=== PATIENT | female | born 1970 | race Caucasian/White ===

== ENCOUNTER 2024-01-06 17:38 | Inpatient (IN) ==
--- OUTSIDE RECORDS SUMMARY | 2024-01-06 17:42 | External Medical Summary | Summary of Care ---
Author Name Unknown Organization [facility] Address [address] [place] [facility] [place] [place] [address] Phone [phone] Care Team Providers Care Fundraiser Name Role Phone Juan Hernandez MD Primary Care Provider + Reason for Visit * Reason Comments Medication Refill Encounter Details Date Type Department Care Team (Late st Contact Info) Description 12/18/2023 Refill Pulmonary Medicine, [facility] [address] [place] [address] Anel Terry, [address] [place] [address] Hypersomnia, periodic Allergies Active Allergy Reactions Criticality Noted Date Comments Topiramate Cough 04/28/2017 documented as of this encounter (statuses as of 12/19/2023) Medications Medication Sig Dispensed Refills Start Date End Date Status Fluticasone Propionate 50 MCG/ACT Nasal Suspension Administer 2 Sprays into each nostril 2 times a day. 18 mL 11 12/08/2020 Active Fluocinonide 0.05 % External Cream Apply topically to affected area 2 times a day to dry skin behind ears 30 g 11/02/2022 Active Levocetirizine Dihydrochloride 5 MG Oral TabletIndications:Ch ronic cough,Upper airway cough syndrome TAKE ONE TABLET BY MOUTH BEFORE BEDTIME 90 Tablet 1 12/10/2022 Active Armodafinil 250 MG Oral TabletIndications:Id iopathic hypersomnia Take 1 Tablet by mouth in the morning. Do not start before July 19, 2023. 90 Tablet 2 07/19/2023 Active Atorvastatin Calcium 80 MG Oral Tablet (Lipitor)Indications :Family history of premature CAD,Dyslipidemia, goal LDL below 70 TAKE ONE TABLET BY MOUTH EVERY day 90 Tablet 3 07/18/2023 Active Semaglutide(0.25 or 0.5MG/DOS) 2 MG/3ML Solution Pen-injector (Ozempic) Inject 0.5 mg under the skin once a week. 9 mL 1 07/18/2023 Active Amphetamine-Dextroam phetamine 15 MG Oral TabletIndications:Hy persomnia, periodic TAKE ONE TABLET BY MOUTH TWICE A DAY, EVERY MORNING AND AT NOON 180 Tablet 09/19/2023 5 Active traZODone HCl 100 MG Oral Tablet (Desyrel)Indications :Idiopathic hypersomnia TAKE ONE TABLET BY MOUTH BEFORE BEDTIME 90 Tablet 3 10/31/2023 5 Active Premarin 0.625 MG/GM Vaginal Cream (Estrogens Conjugated) Administer 0.5 g into the vagina at bedtime. As directed. 60 g 1 11/06/2023 Active Pantoprazole Sodium 40 MG Oral Tablet Delayed Release (Protonix)Indication s:Gastroesophageal reflux disease without esophagitis TAKE ONE TABLET BY MOUTH EVERY DAY THIRTY MINUTES BEFORE THE FIRST MEAL OF THE DAY. DO NOT CRUSH, SPLIT, OR CHEW 90 Tablet 1 12/02/2023 5 Active Amphetamine-Dextroam phet ER 30 MG Oral Capsule Extended Release 24 Hour (Adderall XR)Indications:Hyper somnia, periodic TAKE ONE CAPSULE BY MOUTH EVERY DAY IN THE MORNING 90 Capsule 12/19/2023 5 Active Amphetamine-Dextroam phet ER 30 MG Oral Capsule Extended Release 24 Hour (Adderall XR)Indications:Hyper somnia, periodic TAKE ONE CAPSULE BY MOUTH EVERY DAY IN THE MORNING 90 Capsule 09/19/2023 4 Discontinu ed(Refill) documented as of this encounter (statuses as of 12/19/2023) Active Problems Problem Noted Date Diagnosed Date S/P cervical spinal fusion 03/04/2022 Overview: 03/21 Cervical spinal stenosis 03/03/2022 Cervical radiculopathy 03/03/2022 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 Increased risk for Familial Hypercholesterolemia.Proband RQ [id number]. Proband report date 10/09/2020 (MM/DD/YYYY). Please click the link below into your browser for a brief summary of current clinical management recommendations for Familial Hypercholesterolemia. LDLR Chronic rhinitis 08/19/2020 Gastroesophageal reflux dise ase with esophagitis without hemorrhage 08/19/2020 Chronic cough 08/19/2020 Well adult exam 05/20/2020 Overview: 2021 colon WNL shirlene 5y 01/17 EGD WNL Bejarano + acid reflux. Excessive daytime sleepiness 05/09/2017 Obesity, Class I, BMI 30.0-34.9 (see actual BMI) 10/12/2016 Insomnia 08/26/2016 Overview: Better with doxepin Dyslipidemia, goal LDL below 130 04/08/2011 Attention deficit disorder without hyperactivity 04/15/2009 MEDICATION USE AGREEMENT Overview: For ADD meds - OK to burr picker refills and be seen for med check every 6 mos w/ PCP. Had UDS done 03/26/12 c/w prescribed adderall - compliant w/ med use agreement. Lumbar disc disease documented as of this encounter (statuses as of 12/19/2023) Resolved Problems Problem Noted Date Diagnosed Date Resolved Date Acne 12/03/2012 04/12/2018 Back pain 09/04/2017 Hip pain 09/04/2017 documented as of this encounter (statuses as of 12/19/2023) Immunizations Name Administration Dates Next Due COVID-19 mRNA, LNP-s, No Pre serve, 2-Dose Series (Tangled) 05/03/2020,04/05/2020 DTaP Dipth/Tet/Acell Pertussis (Infanrix), Peds 06/13/1974,06/10/1971,1970,1970 MMR - Measles/Mumps/Rubella Vaccine 07/19/1982,0 06/10/1971 OPV - Polio Virus Vaccine (Oral) 08/13/1974,05/28,1970 PPD 04/15/1985,08/13/1974,1970 Seasonal Influenza Vac., MDV , IM, 0.5 mL (Fluzone) 11/28/2019,12/07/2016,12/02/2015,2014 Seasonal Influenza Virus Vac cine, Unspecified Formulation 12/05/2018 Seasonal Influenza, PF, 6 M & above, IM , (FluLaval or Fluzone) 01/17/2023,12/15/2021,11/23/2020 Seasonal Influenza, Quadriva lent, No Preserve, IM 12/05/2018,12/06/2017,12/07/2016 TDAP (age 10 and older)(Boostrix) 05/21/2021 documented as of this encounter Social History Tobacco Use Types Packs/Day Years Used Date Smoking Tobacco: Never Smokeless Tobacco: Never Alcohol Use Standard Drinks/Week Comments Yes 0 (1 standard drink = 0.6 oz pur e alcohol) 0-2. no binge PHQ-2 Answer Date Recorded PHQ-2 Score 0 09/17/2019 Hunger Vital Sign Answer Date Recorded Worried About Running Out of Food in the Last Ye ar Never true 09/17/2019 Ran Out of Food in the Last Year Never true 09/17/2019 Utilities Answer Date Recorded Do you have trouble paying y our heating, water, or electric bill? (Adult - for ages 18 years and over) Not on file 08/15/2023 Is your family able to pay t he heat, water, or electric bill? (Household - for ages 0-17 years) Not on file 08/15/2023 Does your family have access to good internet? (Household - for ages 0-17 years) Not on file 08/15/2023 Social Connections Answer Date Recorded How often do you feel lonely or isolated from those around you? (Adult - for ages 18 years and over) Not on file 08/15/2023 Sex and Gender Information Value Date Recorded Sex Assigned at Female 09/17/2019 1:40 PM EDT Gender Identity Female 09/17/2019 1:40 PM EDT Sexual Orientation Choose not to disclose 2019 1:40 PM EDT Job Start Date Occupation Industry Not on file Not on file Not on file documented as of this encounter Functional Status Functional Status Response Date of Assess ment Are you deaf or do you have serious difficulty h earing? No 03/03/2022 Are you blind or do you have serious difficulty seeing, even when wearing glasses? No 03/03/2022 Do you have serious difficul ty walking or climbing stairs? (5 years old or older) No 03/03/2022 Do you have difficulty dress ing or bathing? (5 years old or older) No 03/03/2022 Because of a physical, menta l, or emotional condition, do you have difficulty doing errands alone such as visiting a doctor s office or shopping? (15 years old or older) No 03/03/19 Cognitive Status Response Date of Assessm ent Because of a physical, menta l, or emotional condition, do you have serious difficulty concentrating, remembering, or making decisions? (5 years old or older) No 03/03/2022 documented as of this encounter Miscellaneous Notes * Telephone Encounter - Anel Terry DO - 12/19/2023 1:29 PM EDTSigned Prescriptions: Disp Refills Amphetamine-Dextroamphet ER 30 MG Oral Cap*90 Cap*0 Sig: TAKE ONE CAPSULE BY MOUTH EVERY DAY IN THE MORNING Authorizing Provider: ANEL TERRY * Telephone Encounter - Yuliya Cooper LPN - 12/19/2023 10:19 AM EDTPending Prescriptions: Disp Refills Amphetamine-Dextroamphet ER 30 MG Oral Cap*90 Cap*0 Sig: TAKE ONE CAPSULE BY MOUTH EVERY DAY IN THE MORNING documented in this encounter Plan of Treatment Upcoming Encounters Date Type Department Care Team (Late st Contact Info) Description 2024 10:00 AM EST Office Visit Interventional Pain Center, [facility] [address] [place] [address] Cecilia Laguna PA-C [address] [place] [address] 05/29/2024 8:20 AM EDT Office Visit Family Practice [facility] [address] [place] [address] Juan Hernandez MD [address] [place] [address] 07/26/2024 2:20 PM EDT Office Visit Sleep Disorders Ctr [facility] [address] [place] [phone] Anel Terry DO [address] [place] [address] 07/31/2024 7:45 AM EDT Imaging Radiology [facility] [address] [facility] [address] [place] [address] Scheduled Procedures Name Priority Associated Diagnoses Date/Ti me COLONOSCOPY FLEXIBLE PROXIMA L DIAGNOSTIC Recall Family history of colonic polyps Health Maintenance Due Date Last Done Comments HIV Screening 1985 Hepatitis C Screening 02/13/1988 Hepatitis B Vaccine (1 of 3 - 19+ 3-dose series) 1989 Cologuard 2015 Fecal Occult Blood Test 2015 Sigmoidoscopy 2015 Zoster Vaccines (1 of 2) 02/13/2020 Depression Screening 09/16/2020 09/17/2019 Mammogram 09/20/2023 09/19/2022, 08/28, 02/07/2020, Additional history exists COVID-19 Vaccine ( season) 2023 05/03/2020, 04/05/2020 Influenza Vaccine (FLU shot) (#1) 2023 01/17/2023, 12/15/2021, 11/23/2020, Additional history exists Diabetes Screening 02/11/2025 02/11/2022, 0 05/19/2020, 09/07/2016, Additional history exists Lipid Panel 04/07/2026 04/07/2021, 10/29, 11/17/2020, Additional history exists Pap Smear 07/13/2026 07/14/2023, 10/2018, 02/04/2019, Additional history exists Colonoscopy 01/26/2027 01/26/2022, 01/26/2022 Colorectal Cancer Screening 01/26/2027 Cervical Cancer Screening 07/13/2028 HPV/Co-Test 07/13/2028 07/14/2023 DTap/Tdap Vaccines (7 - Td or Tdap) 05/22/2031 05/21/2021, 03/25/2010, 06/13/1974, Additional history exists RETIRED - COLONOSCOPY-EVERY 5 YRS AGES 18-100 Discontinued 01/26/2022, 01/26/2022 HPV (Gardasil) Vaccine Aged Out No lo nger eligible based on patient's age to complete this topic MENINGOCOCCAL (MENACTRA/MENVEO) Aged Out No longer eligible based on patient's age to complete this topic Pneumococcal Vaccine: Pediatrics (0 to 5 Years) and At-Risk Patients (6 to 64 Years) Aged Out No longer eligible based on patient's age to complete this topic documented as of this encounter Medical Devices Implanted Type Area Turret Punch Press Operator Device Identifier Shelf Expiration Date Model / Serial / Lot Dbx 1cc [id number] - [id number] - [id number] Implanted:Qty : 1 on 03/03/2022 by Marilyn Aquino MD at OR [facility] N/A: Spine Cervical MUSCULOSKELETAL TRANSPLANT FND [id number] 10/15/2023 [id number] / [id number] / [id number] Spacer Avs [id number] - [id number] Implanted:Qty : 2 on 03/03/2022 by Marilyn Aquino MD at OR [facility] N/A: Spine Cervical SHARITA : SPINE [id number] / / Plate Cerv Cons 2 Level 34mm - [id number] Implanted:Qty : 1 on 03/03/2022 by Marilyn Aquino MD at OR [facility] N/A: Spine Cervical SHARITA : SPINE [id number] / / Screw Olivia 4x14mm Self Ca - [id number] Implanted:Qty : 6 on 03/03/2022 by Marilyn Aquino MD at OR [facility] N/A: Spine Cervical SHARITA : SPINE [id number] / / Lens [id number] 12.5mm+23.00 - [id number] - [id number] Implanted:Qty : 1 on 09/01/2022 by Manuel Saba MD at OR [facility] Right: Eye BAUSCH & LOMB 01/26/2025 [id number] / [id number] / [id number] documented as of this encounter Visit Diagnoses Diagnosis Hypersomnia, periodic Recurrent hypersomnia documented in this encounter Advance Directives * No Code (Latest Code Status on File) Date Activated Date Inactivated Comments 09/01/2022 8:37 AM 09/01/2022 2:32 PM This order ref lects the patients wishes and were consensually agreed upon. Question Answer Comments Discussion of Advance Directives occurred with: Patient Does the patient have a Living Will? No Does the patient have Health Care Power of Attor tona? No * Full Code Date Activated Date Inactivated Comments 03/03/2022 8:45 AM 03/04/2022 3:50 PM Question Answer Comments Discussion of Advance Direct minoo occurred with: Not Discussed due to patient's condition Care Teams Fundraiser Relationship Specialty Start Date End Date Juan Hernandez MD [address] [place] [address] PCP - General Family Medicine 07/01/15 documented as of this encounter
--- OUTSIDE RECORDS SUMMARY | 2024-01-06 17:42 | External Medical Summary | Summary of Care ---
Author Name Unknown Organization [facility] Address [address] [place] [facility] [place] [address] Phone [phone] Care Team Providers Care Financial Market Dealer Name Role Phone Juan Hernandez MD Primary Care Provider + Reason for Visit * Reason Onset Date Comments Pre Cert/Prior Auth 12/05/2023 Levocetirizi ne 5mg Encounter Details Date Type Department Care Team (Late st Contact Info) Description 12/05/2023 Telephone Family Practice [facility] [place] [address] Juan Hernandez MD [address] [place] [address] Pre Cert/Prior Auth (Levocetirizine 5mg) Allergies Active Allergy Reactions Criticality Noted Date Comments Topiramate Cough 04/28/2017 documented as of this encounter (statuses as of 12/05/2023) Medications Medication Sig Dispensed Refills Start Date End Date Status Fluticasone Propionate 50 MCG/ACT Nasal Suspension Administer 2 Sprays into each nostril 2 times a day. 18 mL 11 12/08/2020 Active Fluocinonide 0.05 % External Cream Apply topically to affected area 2 times a day to dry skin behind ears 30 g 11/02/2022 Active Levocetirizine Dihydrochloride 5 MG Oral TabletIndications:Chr onic cough,Upper airway cough syndrome TAKE ONE TABLET BY MOUTH BEFORE BEDTIME 90 Tablet 1 12/10/2022 4 Active Armodafinil 250 MG Oral TabletIndications:Idi opathic hypersomnia Take 1 Tablet by mouth in the morning. Do not start before July 19, 2023. 90 Tablet 2 07/19/2023 Active Atorvastatin Calcium 80 MG Oral Tablet (Lipitor)Indications: Family history of premature CAD,Dyslipidemia, goal LDL below 70 TAKE ONE TABLET BY MOUTH EVERY day 90 Tablet 3 07/18/2023 Active Semaglutide(0.25 or 0.5MG/DOS) 2 MG/3ML Solution Pen-injector (Ozempic) Inject 0.5 mg under the skin once a week. 9 mL 1 07/18/2023 Active Amphetamine-Dextroamp hetamine 15 MG Oral TabletIndications:Hyp ersomnia, periodic TAKE ONE TABLET BY MOUTH TWICE A DAY, EVERY MORNING AND AT NOON 180 Tablet 09/19/2023 5 Active Amphetamine-Dextroamp het ER 30 MG Oral Capsule Extended Release 24 Hour (Adderall XR)Indications:Hypers omnia, periodic TAKE ONE CAPSULE BY MOUTH EVERY DAY IN THE MORNING 90 Capsule 09/19/2023 5 Active traZODone HCl 100 MG Oral Tablet (Desyrel)Indications: Idiopathic hypersomnia TAKE ONE TABLET BY MOUTH BEFORE BEDTIME 90 Tablet 3 10/31/2023 5 Active Premarin 0.625 MG/GM Vaginal Cream (Estrogens Conjugated) Administer 0.5 g into the vagina at bedtime. As directed. 60 g 1 11/06/2023 Active Pantoprazole Sodium 40 MG Oral Tablet Delayed Release (Protonix)Indications :Gastroesophageal reflux disease without esophagitis TAKE ONE TABLET BY MOUTH EVERY DAY THIRTY MINUTES BEFORE THE FIRST MEAL OF THE DAY. 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 Increased risk for Familial Hypercholesterolemia.Proband RQ [id number]. Proband report date 10/09/2020 (MM/DD/YYYY). Please click [...] Overview: For ADD meds - OK to pick and shovel man refills and be seen for med check every 6 mos w/ PCP. Had UDS done 03/26/12 c/w prescribed adderall - compliant w/ med use agreement. Lumbar disc disease documented as of this encounter (statuses as of 12/05/2023) Resolved Problems Problem Noted Date Diagnosed Date Resolved Date Acne 12/03/2012 04/12/2018 Back pain 09/04/2017 Hip pain 09/04/2017 documented as of this encounter (statuses as of 12/05/2023) Immunizations Name Administration Dates Next Due COVID-19 mRNA, LNP-s, No Pre serve, 2-Dose Series (TrustAlert) 05/03/2020,04/05/2020 DTaP Dipth/Tet/Acell Pertussis (Infanrix), Peds 06/13/1974,06/10/1971,1970,1970 [...] encounter Miscellaneous Notes * Telephone Encounter - Benita You CPhT - 12/05/2023 10:59 AM EDT Pharmacy calling to inform doctor that the patient's insurance will not pay for this medication without a completed prior authorization. Did confirm this information with the pharmacy. Pt's current insurance information is as follows: Patient name: Migdalia Madden ID number: [id number] BIN number: [id number] PCN number: [id number] Group number: none Subscriber name: Migdalia Madden Primary or Secondary Insurance:Primary Medication: levocetirizine 5mg Reason for Request: product not on formulary Pharmacy and phone number: [facility] [phone] Rx plan and phone number: [facility] [phone] Is this a new medication for the patient? No. How did the patient obtain the medication on the lastfill? It was covered last time on this same insurance. What alternative medications does the pharmacy have in stock?: none Thank you, Benita You [facility] Interpreter III [facility] 12/05/23 documented in this encounter Plan of Treatment Upcoming Encounters Date Type Department Care Team (Late st Contact Info) Description 2024 10:00 AM EST Office Visit Interventional Pain Center, [facility] [address] [place] [address] Cecilia Laguna PA-C [address] [place] [address] 05/29/2024 8:20 AM EDT Office Visit Family Practice [facility] [address] [place] [address] Juan Hernandez MD [address] [place] [address] 07/26/2024 2:20 PM EDT Office Visit Sleep Disorders Ctr [facility] [address] [place] [phone] Haven Terry DO [address] [place] [address] 07/31/2024 7:45 AM EDT Imaging Radiology [facility] 1st Floor, [place] [address] [place] [address] Scheduled Procedures Name Priority Associated Diagnoses Date/Ti [...] this encounter Medical Devices Implanted Type Area Med Admin Device Identifier Shelf Expiration Date Model / Serial / Lot Dbx 1cc [id number] - [id number] - [id number] Implanted:Qty : 1 on 03/03/2022 by Marilyn Aquino MD [place] [facility] [place]A: Spine Cervical MUSCULOSKELETAL TRANSPLANT FND [id number] 10/15/2023 [id number] / [id number] / [id number] Spacer Avs [id number] - [id number] Implanted:Qty : 2 on 03/03/2022 by Marilyn Aquino MD at [place] [facility] N/A: Spine Cervical SHARITA : SPINE [id number] / / Plate Cerv Cons 2 Level 34mm - [id number] Implanted:Qty : 1 on 03/03/2022 by Marilyn Aquino MD at [place] [facility] N/A: Spine Cervical SHARITA : SPINE [id number] / / Screw Olivia 4x14mm Self Ca - [id number] Implanted:Qty : 6 on 03/03/2022 by Marilyn Aquino MD at [place] [facility] N/A: Spine Cervical SHARITA : SPINE [id number] / / Lens [id number] 12.5mm+23.00 - [id number] - [id number] Implanted:Qty : 1 on 09/01/2022 by Manuel Saba MD at OR [facility] Right: Eye BAUSCH & LOMB 01/26/2025 [id number] / [id number] / [id number] documented as of this encounter Advance Directives * No Code [...] Discussed due to patient's condition Care Teams Financial Market Dealer Relationship Specialty Start Date End Date Juan Hernandez MD [address] [facility] [place] [address] PCP - General Family Medicine 07/01/15 documented as of this encounter
--- OUTSIDE RECORDS SUMMARY | 2024-01-06 17:42 | External Medical Summary | Summary of Care ---
Author Name Unknown Organization [facility] Address [address] [facility] [place] [address] Phone [phone] Care Team Providers Care Flame Burner Name Role Phone Juan Hernandez MD Primary Care Provider + Reason for Visit * Reason Onset Date Comments Pre Cert/Prior Auth 12/05/2023 Levocetirizi ne 5mg Encounter Details Date Type Department Care Team (Late st Contact Info) Description 12/05/2023 Telephone Family Practice [facility] [place] [address] Juan Hernandez MD [address] [place] [address] Pre Cert/Prior Auth (Levocetirizine 5mg) Allergies Active Allergy Reactions Criticality Noted Date Comments Topiramate Cough 04/28/2017 documented as of this encounter (statuses as of 12/06/2023) Medications Medication Sig Dispensed Refills Start Date [...] as of this encounter (statuses as of 12/06/2023) Active Problems Problem Noted Date Diagnosed Date S/P cervical spinal fusion 03/04/2022 Overview: 03/21 Cervical spinal stenosis 03/03/2022 Cervical radiculopathy 03/03/2022 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 Increased risk for Familial Hypercholesterolemia.Proband RQ 1193185-2. Proband report date 10/09/2020 (MM/DD/YYYY). 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 Had UDS done 03/26/12 c/w prescribed adderall - compliant w/ med use agreement. Lumbar disc disease documented as of this encounter (statuses as of 12/06/2023) Resolved Problems Problem Noted Date Diagnosed Date Resolved Date Acne 12/03/2012 04/12/2018 Back pain 09/04/2017 Hip pain 09/04/2017 documented as of this encounter (statuses as of 12/06/2023) Immunizations Name Administration Dates Next Due COVID-19 mRNA, LNP-s, No Pre serve, 2-Dose Series (Pure Focus) 05/03/2020,04/05/2020 DTaP Dipth/Tet/Acell Pertussis (Infanrix), Peds 06/13/1974,06/10/1971,1970,1970 MMR - Measles/Mumps/Rubella Vaccine 07/19/1982,0 06/10/1971 OPV - Polio Virus Vaccine (Oral) 08/13/1974,05/28,1970 PPD 04/15/1985,08/13/1974,1970 Seasonal Influenza Vac., MDV , IM, 0.5 mL (Fluzone) 11/28/2019,12/07/2016,12/02/2015,2014,12/10/2013,11/29/2012,11/29/2011,0 11/25/2010,11/23/2009 Seasonal Influenza Virus Vac cine, Unspecified Formulation 12/05/2018 Seasonal Influenza, PF, 6 M & above, IM , (FluLaval or Fluzone) 01/17/2023,12/15/2021,11/23/2020 Seasonal Influenza, Quadriva lent, No Preserve, IM 12/05/2018,12/06/2017,12/07/2016 TDAP (age 10 and older)(Boostrix) 05/21/2021 TDAP, Age 7 and older, IM (Adacel) 03/25/2010 documented as of this encounter Social History [...] (15 years old or older) No 03/03/19 23 Cognitive Status Response Date of Assessm ent Because of a physical, menta l, or emotional condition, do you have serious difficulty concentrating, remembering, or making decisions? (5 years old or older) No 03/03/2022 documented as of this encounter Miscellaneous Notes * Telephone Encounter - David Vega [facility] - 12/06/2023 8:28 AM EDT This is a new PA request. Upon review of this prior authorization request, I verified this request is appropriate. This is prescribed by a department for which [facility] is authorized to review prior authorizations This is not a duplicate encounter regarding the same prior authorization The patient is planning to use insurance The insurance information listed in previous note is correct and the plan that is requiring prior authorization The insurance does not cover either brand or generic forms of this script as written without prior authorization The insurance does not cover any NDCs of this script without prior authorization RX Estimate tool confirms this script needs prior authorization Please see 09/01/23 enc with same plan info - Pt was advised to purchase OTC Of note, there is nothing currently pending in [facility] for this request. Please advise how to proceed. Thank you, Tayo Vega (gin operator) Frame Trimmer III [facility] 12/06/2023, 8:28 AM * Telephone Encounter - Benita You CPhT - 12/05/2023 10:59 AM EDT Pharmacy calling to inform doctor that the patient's insurance will not pay for this medication without a completed prior authorization. Did confirm this information with the pharmacy. Pt's current insurance information is as follows: Patient name: Migdalia Madden ID number: [id number] BIN number: [id number] PCN number: [id number] Group number: none Subscriber name: Migdalia Madden Primary or Secondary Insurance:Primary Medication: levocetirizine 5mg Reason for Request: product not on formulary Pharmacy and phone number: [facility] [phone] Rx plan and phone number: [facility] [phone] Is this a new medication for the patient? No. How did the patient obtain the medication on the lastfill? It was covered last time on this same insurance. What alternative medications does the pharmacy have in stock?: none Thank you, Benita You CphT Frame Trimmer III [facility] 12/05/23 documented in this encounter Plan of Treatment Upcoming Encounters Date Type Department Care Team (Late st Contact Info) Description 2024 10:00 AM EST Office Visit Interventional Pain Center, [facility] [address] [address] Cecilia Laguna PA-C [address] [place] [address] 05/29/2024 8:20 AM EDT Office Visit Family Practice [facility] [address] [address] [address] Juan Hernandez MD [address] [place] [address] 07/26/2024 2:20 PM EDT Office Visit Sleep Disorders Ctr [facility] [address] [id number] Haven Terry, [address] [place] [address] 07/31/2024 7:45 AM EDT Imaging Radiology [address] [place] [address] Scheduled Procedures Name Priority Associated Diagnoses Date/Ti [...] Additional history exists Pap Smear 07/13/2026 07/14/2023, 12/10/2018, 02/04/2019, Additional history exists Colonoscopy 01/26/2027 01/26/2022, [...] this encounter Medical Devices Implanted Type Area Weight Yardage Checker Device Identifier Shelf Expiration Date Model / Serial / Lot Dbx 1cc [id number] - [id number] - [id number] Implanted:Qty : 1 on 03/03/2022 by Marilyn Aquino [place] [facility]/A: Spine Cervical MUSCULOSKELETAL TRANSPLANT FND [id number] 10/15/2023 [id number] / [id number] / [id number] Spacer Avs [id number] - [id number] Implanted:Qty : 2 on 03/03/2022 by Marilyn Aquino MD [place] [facility] [place] N/A: Spine Cervical SHARITA : SPINE [id number] / / Plate Cerv Cons 2 Level 34mm - [id number] Implanted:Qty : 1 on 03/03/2022 by Marilyn Aquino MD at [place] [facility] [place] N/A: Spine Cervical SHARITA : SPINE [id number] / / Screw Olivia 4x14mm Self Ca - [id number] Implanted:Qty : 6 on 03/03/2022 by Marilyn Aquino MD at [place] [facility] [place] N/A: Spine Cervical SHARITA : SPINE [id number] / / Lens [id number] 12.5mm+23.00 - [id number] - [id number] Implanted:Qty : 1 on 09/01/2022 by Manuel Saba MD at [facility] Right: Eye BAUSCH & LOMB 01/26/2025 [id number] / [id number] / [id number] documented as of this encounter Visit Diagnoses Diagnosis Chronic cough Cough Upper airway cough syndrome Cough documented in this encounter Advance Directives * [...] Discussed due to patient's condition Care Teams Flame Burner Relationship Specialty Start Date End Date Juan Hernandez MD [address] [address] PCP - General Family Medicine 07/01/15 documented as of this encounter
--- OUTSIDE RECORDS SUMMARY | 2024-01-06 17:42 | External Medical Summary | Summary of Care ---
Author Name Unknown Organization [facility] Address [address] [place] [facility] [place] [address] Phone [phone] Care Team Providers Care Molder Automobile Carpets Name Role Phone Juan Hernandez MD Primary Care Provider + Reason for Visit * Reason Onset Date Comments Pre Cert/Prior Auth 12/05/2023 Levocetirizi ne 5mg Encounter Details Date Type Department Care Team (Late st Contact Info) Description 12/05/2023 Telephone Family Practice [facility] [address] [facility] [place] [address] Juan Hernandez MD [address] [place] [address] Pre Cert/Prior Auth (Levocetirizine 5mg) Allergies Active [...] Overview: pathogenic LDLR gene variant (c.798T>A , p.[id number]) detected via Supersolid. Increased risk for Familial Hypercholesterolemia.Proband RQ 8040613-8. Proband report date 10/09/2020 (MM/DD/YYYY). 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 Sent another myG. Thanks, Tori Rain, PharmD Clinical Pharmacist [facility] ([facility]) [phone] 12/06/2023 9:24 AM * Telephone Encounter - David Vega CPhT - 12/06/2023 8:28 AM EDT This is a new PA request. Upon review of this prior authorization request, I verified this request is appropriate. This is prescribed by a department for which [facility] is authorized to review prior authorizations This [...] note, there is nothing currently pending in [facility] for this request. Please advise how to proceed. Thank you, Tayo Vega ([facility]) Marketing Database Analyst III [facility] 12/06/2023, 8:28 AM * Telephone Encounter - Benita You CPhT - 12/05/2023 10:59 AM EDT Pharmacy calling to inform doctor that the patient's insurance will not pay for this medication without a completed prior authorization. Did confirm this information with the pharmacy. Pt's current insurance information is as follows: Patient name: Migdalia Madden ID number: [id number] BIN number: [id number] PCN number: [id number] Group number: none Subscriber name: Migdalia Madden Primary or Secondary Insurance:Primary Medication: levocetirizine 5mg Reason for Request: product not on formulary Pharmacy and phone number: [facility] [phone] Rx plan and phone number: [facility] [phone] Is this a new medication for the patient? No. How did the patient obtain the medication on the lastfill? It was covered last time on this same insurance. What alternative medications does the pharmacy have in stock?: none Thank you, Benita You CphT Marketing Database Analyst III [facility] 12/05/23 documented in this encounter Plan of Treatment Upcoming Encounters Date Type Department Care Team (Late st Contact Info) Description 2024 10:00 AM EST Office Visit Interventional Pain Center, [facility] [address] [place] [address] Cecilia Laguna PA-C [address] [place] [address] 05/29/2024 8:20 AM EDT Office Visit Family Practice [facility] [address] [place] [address] Juan Hernandez MD [address] [place] [address] 07/26/2024 2:20 PM EDT Office Visit Sleep Disorders Ctr [facility] [address] [place] [phone] Haven Terry DO [address] [place] [address] 07/31/2024 7:45 AM EDT Imaging Radiology [facility] [address] [place] [address] Scheduled Procedures Name Priority Associated Diagnoses Date/Ti [...] Additional history exists Pap Smear 07/13/2026 07/14/2023, 1210/2018, 02/04/2019, Additional history exists Colonoscopy 01/26/2027 01/26/2022, [...] this encounter Medical Devices Implanted Type Area Retail Chain Store Area Supervisor Device Identifier Shelf Expiration Date Model / Serial / Lot Dbx 1cc [id number] - [id number] - [id number] Implanted:Qty : 1 on 03/03/2022 by Marilyn Aquino MD [place] [facility] [place]/A: Spine Cervical MUSCULOSKELETAL TRANSPLANT FND [id number] 10/15/2023 [id number] / [id number] / [id number] Spacer Avs [id number] - [id number] Implanted:Qty : 2 on 03/03/2022 by Marilyn Aquino MD [place] [facility] [place] N/A: Spine Cervical SHARITA : SPINE [id number] / / Plate Cerv Cons 2 Level 34mm - [id number] Implanted:Qty : 1 on 03/03/2022 by Marilyn Aquino MD at [place] [facility] [place] N/A: Spine Cervical SHARITA : SPINE [id number] / / Screw Olivia 4x14mm Self Ca - [id number] Implanted:Qty : 6 on 03/03/2022 by Marilyn Aquino MD at [place] [facility] [place] N/A: Spine Cervical SHARITA : SPINE [id number] / / Lens [id number] 12.5mm+23.00 - [id number] - [id number] Implanted:Qty : 1 on 09/01/2022 by Manuel Saba MD at OR [facility] Right: Eye BAUSCH & LOMB 01/26/2025 [id number] / [id number] / [id number] documented as of this encounter Visit Diagnoses [...] Discussed due to patient's condition Care Teams Molder Automobile Carpets Relationship Specialty Start Date End Date Juan Hernandez MD [address] [place] [address] PCP - General Family Medicine 07/01/15 documented as of this encounter
--- OUTSIDE RECORDS SUMMARY | 2024-01-06 17:42 | External Medical Summary | Summary of Care ---
Author Name Unknown Organization [facility] Address [address] [place] [facility] [place] [address] Phone [phone] Care Team Providers Care Scroll Machine Operator Name Role Phone Juan Hernandez MD Primary Care Provider + Reason for Visit * Reason Comments Nausea Pt c/o nausea x 10- 14 days, vomit x 1 episode initially. Denies cough, sore throat or body aches. Mild headache on/off x 10-14 days, is not taking pain meds for this. Denies light sensitivity. Has not been on ozempic for the past 2 wks since having these sx. Encounter Details Date Type Department Care Team (Latest Contact Info) Description 01/04/2024 3:00 PM EST Office Visit [facility] [address] [place] [address] Bolivar Terry DO [address] [place] [address] Gastroesophageal reflux disease without esophagitis*; Slow transit constipation Allergies Active Allergy Reactions Criticality Noted Date Comments Topiramate Cough 04/28/2017 documented as of this encounter (statuses as of 01/04/2024) Medications Medication Sig Dispensed Refills Start Date [...] MORNING AND AT NOON 180 Tablet 09/19/2023 03/17/19 25 Active traZODone HCl 100 MG Oral Tablet (Desyrel)Indications :Idiopathic hypersomnia TAKE ONE TABLET BY MOUTH BEFORE BEDTIME 90 Tablet 3 10/31/2023 10/31/19 25 Active Premarin 0.625 MG/GM Vaginal Cream (Estrogens Conjugated) Administer 0.5 g into the vagina at bedtime. As directed. 60 g 1 11/06/2023 Active Pantoprazole Sodium 40 MG Oral Tablet Delayed Release (Protonix)Indication s:Gastroesophageal reflux disease without esophagitis TAKE ONE TABLET BY MOUTH EVERY DAY THIRTY MINUTES BEFORE THE FIRST MEAL OF THE DAY. DO NOT CRUSH, SPLIT, OR CHEW 90 Tablet 1 12/02/2023 12/02/19 25 Active Amphetamine-Dextroam phet ER 30 MG Oral Capsule Extended Release 24 Hour (Adderall XR)Indications:Hyper somnia, periodic TAKE ONE CAPSULE BY MOUTH EVERY DAY IN THE MORNING 90 Capsule 12/19/2023 06/17/19 25 Active Ondansetron HCl 4 MG Oral Tablet Take 1 Tablet by mouth every 6 hours as needed for Nausea. 30 Tablet 12/27/2023 Active Polyethylene Glycol 3350 17 GM/SCOOP Oral Powder (MiraLax)Indications :Slow transit constipation Dissolve one heaping tablespoon in 8 ounces of water or juice twice daily by mouth. Titrate up to three 17g doses daily after 3 days if not improving. 850 g 3 01/04/2024 Active Bisacodyl 10 MG Rectal Suppository (Dulcolax)Indication s:Slow transit constipation Administer 1 Suppository into the rectum 2 times a day as needed for Constipation. Do not use for more than 1 week. 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 Increased risk for Familial Hypercholesterolemia.Proband RQ [id number]. Proband report date 10/09/2020 (MM/DD/YYYY). 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 Had UDS done 03/26/12 c/w prescribed adderall - compliant w/ med use agreement. Lumbar disc disease documented as of this encounter (statuses as of 01/04/2024) Resolved Problems Problem Noted Date Diagnosed Date Resolved Date Acne 12/03/2012 04/12/2018 Back pain 09/04/2017 Hip pain 09/04/2017 documented as of this encounter (statuses as of 01/04/2024) Immunizations Name Administration Dates Next Due COVID-19 mRNA, LNP-s, No Pre serve, 2-Dose Series (Pfizer) 05/03/2020,04/05/2020 DTaP Dipth/Tet/Acell Pertussis (Infanrix), Peds 06/13/1974,06/10/1971,1970,1970 MMR - Measles/Mumps/Rubella Vaccine 07/19/1982,0 06/10/1971 OPV - Polio Virus Vaccine (Oral) 08/13/1974,05/28,1970 PPD 04/15/1985,08/13/1974,1970 Seasonal Influenza Vac., MDV , IM, 0.5 mL (Fluzone) 11/28/2019,12/07/2016,12/02/2015,2014 Seasonal Influenza Virus Vac cine, Unspecified Formulation 12/05/2018 Seasonal Influenza, PF, 6 M & above, IM , (FluLaval or Fluzone) 01/17/2023,12/15/2021,11/23/2020 Seasonal Influenza, Quadriva lent, No Preserve, IM 12/05/2018,12/06/2017,12/07/2016 Seasonal Influenza, Trivalen t, (IIV3), PF, (Fluzone) 12/20/2023 TDAP (age 10 and older)(Boostrix) 05/21/2021 documented as of this encounter Social History Tobacco Use Types Packs/Day Years Used Date Smoking Tobacco: Never Smokeless Tobacco: Never Tobacco Cessation:Counseling Given: Not Answered Alcohol Use Standard Drinks/Week Comments Yes 0 [...] on file documented as of this encounter Last Filed Vital Signs Vital Sign Reading Time Taken Comments Blood Pressure 98/58 01/04/2024 2:48 PM EST Pulse 85 01/04/2024 2:48 PM EST Temperature 36.6 C (97.8 F) 01/04/2024 2:48 PM ES T Respiratory Rate 16 01/04/2024 2:48 PM EST Oxygen Saturation 98% 01/04/2024 2:48 PM EST Inhaled Oxygen Concentration - - Weight 54.9 kg (121 lb) 01/04/2024 2:48 PM EST Height - - Body Mass Index 22.86 08/18/2023 9:24 AM EDT documented in this encounter Functional Status Functional Status Response [...] No 03/03/2022 documented as of this encounter Progress Notes * Bolivar Terry, - 01/04/2024 2:56 PM EST Images from the original note were not included. Assessment and Plan Assessment & Plan Gastroesophageal Reflux Disease (GERD) Exacerbation of symptoms possibly due to Ozempic use. Patient has stopped Ozempic and is currently on Pantoprazole. -Continue Pantoprazole. -Consider resuming Ozempic once bowel movements normalize and GERD symptoms improve. Chronic Constipation Worsening constipation, possibly related to Ozempic use. Patient has a history of infrequent bowel movements. Current attempts with women's laxative and Dulcolax have been ineffective. -Start Miralax twice daily, increase to three times daily if twice daily is ineffective. -Use Dulcolax suppositories twice daily. -Encourage increased hydration. Hypotension Patient reports episodes of low blood pressure, but no symptoms of syncope or pre-syncope. Blood pressure may be artificially low due to constipation. -Encourage adequate hydration. -Monitor for symptoms of hypotension. History of Present Illness Migdalia Madden is a 53 year old female that presents for Nausea (Pt c/o nausea x 10- 14days, vomit x 1 episode initially. Denies cough, sore throat or body aches. Mild headache on/off x 10-14 days, is not taking pain meds for this. Denies light sensitivity. Has not been on ozempic for the past 2 wks since having these sx.) History of Present Illness The patient, with a history of chronic constipation, presents with worsening symptoms of nausea, reflux, and constipation for the past two weeks. She describes a significant increase in heartburn andreflux symptoms. She has been unable to have a bowel movement despite attempts with a suppository and a women's laxative. She reports a history of slow bowel movements and not going every day. She has stopped taking Ozempic due to these symptoms. She has been eating a diet of bananas, applesauce, and Jell-O to manage her symptoms, but reports that her stomach 'goes absolutely nuts' after eating. She also reports a history of low blood pressure, which has been noted to be lower than usual duringthis episode. Physical Exam Vitals: 01/04/24 1448 Temp: 36.6 C (97.8 F) Pulse: 85 Resp: 16 SpO2: 98% BP: 98/58 Physical Exam Constitutional: Appearance: Normal appearance. HENT: Head: Normocephalic and atraumatic. Eyes: Extraocular Movements: Extraocular movements intact. Pupils: Pupils are equal, round, and reactive to light. Cardiovascular: Rate and Rhythm: Normal rate. Pulmonary: Effort: Pulmonary effort is normal. Breath sounds: Normal breath sounds. Abdominal: General: There is distension. Palpations: Abdomen is soft. Neurological: General: No focal deficit present. Mental Status: She is alert and oriented to person, place, and time. Psychiatric: Mood and Affect: Mood normal. Behavior: Behavior normal. Wrap-Up Follow Up: Return if symptoms worsen or fail to improve. Time: Total time today was 25 minutes excluding any time spent in the performance of separately billed services. Text in this note was generated using an ambient documentation service. I discussed the use of a device to record and summarize our discussion today. All persons present during the encounter consented to its use. documented in this encounter Plan of Treatment Upcoming Encounters Date Type Department Care Team (Late st Contact Info) Description 01/09/2024 3:20 PM EST Telemedicine Nutrition & Weight Management, [facility] [address] [facility] [place] [address] Jennifer Negro PA-C [address] [facility] [place] [address] 2024 10:00 AM EST Office Visit Interventional Pain Center, [facility] [address] [place] [address] Cecilia Laguna PA-C [address] [place] [address] 03/13/2024 10:00 AM EST Office Visit Orthopaedics Spine [facility], [place] [address] [place] [address] Michael Lee MD [address] [place] [address] 05/29/2024 8:20 AM EDT Office Visit Family Practice [facility] [address] [place] [address] Juan Hernandez MD [address] [facility] [place] [address] 07/26/2024 2:20 PM EDT Office Visit Sleep Disorders Ctr [facility] [address] [facility] [place] [phone] Haven Terry DO [address] [facility] [place] [address] 07/31/2024 7:45 AM EDT Imaging Radiology [facility] [address] [facility] [place] [address] Scheduled Procedures Name Priority Associated Diagnoses Date/Ti me COLONOSCOPY FLEXIBLE PROXIMA L DIAGNOSTIC Recall Family history of colonic polyps Health Maintenance Due Date Last Done Comments Hepatitis B Vaccine (1 of 3 - 19+ 3-dose series) 1989 Cologuard 2015 Fecal Occult Blood Test 2015 Sigmoidoscopy 2015 Zoster Vaccines (1 of 2) 02/13/2020 Depression Screening 09/16/2020 09/17/2019 Mammogram 09/20/2023 09/19/2022, 08/28, 02/07/2020, Additional history exists COVID-19 Vaccine ( season) 2023 05/03/2020, 04/05/2020 Diabetes Screening 02/11/2025 02/11/2022, 0 05/19/2020, 09/07/2016, [...] 5 YRS AGES 18-100 Discontinued 01/26/2022, 01/26/2022 Influenza Vaccine (FLU shot) Completed 12/20/2023, 01/17/2023, 12/15/2021, Additional history exists HIV Screening Discontinued HPV (Gardasil) Vaccine Aged Out No lo nger eligible based on patient's age to complete this topic Hepatitis C Screening Discontinued MENINGOCOCCAL (MENACTRA/MENVEO) Aged Out No longer eligible based on patient's age to complete this topic Pneumococcal Vaccine: Pediatrics (0 to 5 Years) and At-Risk Patients (6 to 64 Years) Aged Out No longer eligible based on patient's age to complete this topic documented as of this encounter Medical Devices Implanted Type Area Treasury Director Device Identifier Shelf Expiration Date Model / Serial / Lot Dbx 1cc [id number] - [id number] - [id number] Implanted:Qty : 1 on 03/03/2022 by Marilyn Aquino MD at OR [facility] N/A: Spine Cervical MUSCULOSKELETAL TRANSPLANT FND [id number] 10/15/2023 [id number] / [id number] / [id number] Spacer Avs [id number] - [id number] Implanted:Qty : 2 on 03/03/2022 by Marilyn Aquino MD at OR [facility] N/A: Spine Cervical SHARITA : SPINE [id number] / / Plate Cerv Cons 2 Level 34mm - [id number] Implanted:Qty : 1 on 03/03/2022 by Marilyn Aquino MD at OR [facility] N/A: Spine Cervical SHARITA : SPINE [id number] / / Screw Olivia 4x14mm Self Ca - [id number] Implanted:Qty : 6 on 03/03/2022 by Marilyn Aquino MD at OR [facility] N/A: Spine Cervical SHARITA : SPINE [id number] / / Lens [id number] 12.5mm+23.00 - [id number] - [id number] Implanted:Qty : 1 on 09/01/2022 by Manuel Saba MD at OR [facility] Right: Eye BAUSCH & LOMB 01/26/2025 [id number] / [id number] / [id number] documented as of this encounter Visit Diagnoses Diagnosis Gastroesophageal reflux disease without esophagitis- Primary Esophageal reflux Slow transit constipation documented in this encounter Advance Directives * [...] Discussed due to patient's condition Care Teams Scroll Machine Operator Relationship Specialty Start Date End Date Juan Hernandez MD [address] [place] [address] PCP - General Family Medicine 07/01/15 documented as of this encounter
--- OUTSIDE RECORDS SUMMARY | 2024-01-06 17:43 | External Medical Summary | Summary of Care ---
Author Name Unknown Organization [facility] Address [address] [place] [facility] [place] [place] [address] Phone [phone] Care Team Providers Care Color Worker Name Role Phone Juan Hernandez MD Primary Care Provider + Reason for Visit * Reason Comments Medication Refill Encounter Details Date Type Department Care Team (Late st Contact Info) Description 10/31/2023 Refill Sleep Disorders Ctr [facility] [address] [place] [address] Anel Terry, [address] [place] [address] Idiopathic hypersomnia Allergies Active Allergy Reactions Criticality Noted Date Comments Topiramate Cough 04/28/2017 documented as of this encounter (statuses as of 10/31/2023) Medications Medication Sig Dispensed Refills Start Date [...] MOUTH BEFORE BEDTIME 90 Tablet 1 12/10/2022 10/13/202 4 Active Armodafinil 250 MG Oral TabletIndications:Id iopathic hypersomnia Take 1 Tablet by mouth in the morning. Do not start before July 19, 2023. 90 Tablet 2 07/19/2023 Active Pantoprazole Sodium 40 MG Oral Tablet Delayed Release (Protonix)Indication s:Gastroesophageal reflux disease without esophagitis TAKE ONE TABLET BY MOUTH EVERY DAY THIRTY MINUTES BEFORE THE FIRST MEAL OF THE DAY. DO NOT CRUSH, SPLIT, OR CHEW 90 Tablet 1 06/08/2023 5 Active Atorvastatin Calcium 80 MG Oral Tablet (Lipitor)Indications :Family history of premature CAD,Dyslipidemia, goal LDL below 70 TAKE ONE TABLET BY MOUTH EVERY day 90 Tablet 3 07/18/2023 Active Semaglutide(0.25 or 0.5MG/DOS) 2 MG/3ML Solution Pen-injector (Ozempic) Inject 0.5 mg under the skin once a week. 9 mL 1 07/18/2023 Active Premarin 0.625 MG/GM Vaginal Cream (Estrogens Conjugated) Administer 0.5 g into the vagina at bedtime. As directed. 45 g 1 08/04/2023 4 Active Amphetamine-Dextroam phetamine 15 MG Oral TabletIndications:Hy persomnia, periodic TAKE ONE TABLET BY MOUTH TWICE A DAY, EVERY MORNING AND AT NOON 180 Tablet 09/19/2023 5 Active Amphetamine-Dextroam phet ER 30 MG Oral Capsule Extended Release 24 Hour (Adderall XR)Indications:Hyper somnia, periodic TAKE ONE CAPSULE BY MOUTH EVERY DAY IN THE MORNING 90 Capsule 09/19/2023 5 Active traZODone HCl 100 MG Oral Tablet (Desyrel)Indications :Idiopathic hypersomnia TAKE ONE TABLET BY MOUTH BEFORE BEDTIME 90 Tablet 3 10/31/2023 5 Active traZODone HCl 100 MG Oral Tablet (Desyrel)Indications :Idiopathic hypersomnia TAKE ONE TABLET BY MOUTH BEFORE BEDTIME 90 Tablet 3 10/02/2022 4 Discontinu ed(Refill) documented as of this encounter (statuses as of 10/31/2023) Active Problems Problem Noted Date Diagnosed Date S/P cervical spinal fusion 03/04/2022 Overview: 03/21 Cervical spinal stenosis 03/03/2022 Cervical radiculopathy 03/03/2022 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 Increased risk for Familial Hypercholesterolemia.Proband RQ [id number]. Proband report date 10/09/2020 (MM/DD/YYYY). 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 Had UDS done 03/26/12 c/w prescribed adderall - compliant w/ med use agreement. Lumbar disc disease documented as of this encounter (statuses as of 10/31/2023) Resolved Problems Problem Noted Date Diagnosed Date Resolved Date Acne 12/03/2012 04/12/2018 Back pain 09/04/2017 Hip pain 09/04/2017 documented as of this encounter (statuses as of 10/31/2023) Immunizations Name Administration Dates Next Due COVID-19 mRNA, LNP-s, No Pre serve, 2-Dose Series (Manta) 05/03/2020,04/05/2020 DTaP Dipth/Tet/Acell Pertussis (Infanrix), Peds 06/13/1974,06/10/1971,1970,1970 MMR - Measles/Mumps/Rubella Vaccine 07/19/1982,0 06/10/1971 OPV - Polio Virus Vaccine (Oral) 08/13/1974,05/28,1970 PPD 04/15/1985,08/13/1974,1970 Seasonal Influenza Virus Vac cine, Unspecified Formulation 12/05/2018 Seasonal Influenza, PF, 6 M & above, IM , (FluLaval or Fluzone) 01/17/2023,12/15/2021,11/23/2020 Seasonal Influenza, Quadriva lent, No Preserve, IM 12/05/2018,12/06/2017,12/07/2016 Seasonal Influenza, Trivalen t, (IIV3), with Preserv, (Fluzone) 11/28/2019,12/07/2016,12/02/2015,2014 TDAP (age 10 and older)(Boostrix) 05/21/2021 documented [...] Telephone Encounter - Anel Terry DO - 10/31/2023 7:36 AM EDTSigned Prescriptions: Disp Refills traZODone HCl 100 MG Oral Tablet (Desyrel) 90 Tab*3 Sig: TAKE ONE TABLET BY MOUTH BEFORE BEDTIMEAuthorizing Provider: ANEL TERRY documented in this encounter Plan of Treatment Upcoming Encounters Date Type Department Care Team (Late st Contact Info) Description 11/27/2023 8:00 AM EDT Office Visit Orthopaedics [facility] [address] [facility] [place] [address] Darryl Og MD [address] [place] [address] 05/29/2024 8:20 AM EDT Office Visit Family Practice [facility] [address] [place] [address] Jaun Hernandez MD [address] [place] [address] 07/31/2024 7:45 AM EDT Imaging Radiology [address] [place] [address] Scheduled Procedures Name Priority Associated Diagnoses Date/Ti [...] Additional history exists Pap Smear 07/13/2026 07/14/2023, 12/0 10/2018, 02/04/2019, Additional history exists Colonoscopy 01/26/2027 [...] this encounter Medical Devices Implanted Type Area Manifest Clerk Device Identifier Shelf Expiration Date Model / Serial / Lot Dbx c [id number] - [id number] - [id number] Implanted:Qty : 1 on 03/03/2022 by Marilyn Aquino MD at [place] [facility] N/A: Spine Cervical MUSCULOSKELETAL TRANSPLANT FND [id number] 10/15/2023 [id number] / [id number] / [id number] Spacer Avs [id number] - [id number] Implanted:Qty : 2 on 03/03/2022 by Marilyn Aquino MD at [place] [facility] N/A: Spine Cervical SHARITA : SPINE [id number] / / Plate Cerv Cons 2 Level 34mm - [id number] Implanted:Qty : 1 on 03/03/2022 by Marilyn Aquino MD at [place] [facility] N/A: Spine Cervical SHARITA : SPINE [id number] / / Screw Olivia 4x14mm Self Ca - [id number] Implanted:Qty : 6 on 03/03/2022 by Marilyn Aquino MD at [place] [facility] N/A: Spine Cervical SHARITA : SPINE [id number] / / Lens [id number] 12.5mm+23.00 - [id number] - [id number] Implanted:Qty : 1 on 09/01/2022 by Manuel Saba MD at [facility] Right: Eye BAUSCH & LOMB 01/26/2025 [id number] / [id number] / [id number] documented as of this encounter Visit Diagnoses Diagnosis Idiopathic hypersomnia Hypersomnia, unspecified documented in this encounter Advance Directives * [...] Discussed due to patient's condition Care Teams Color Worker Relationship Specialty Start Date End Date Juan Hernandez MD [address] [place] [address] PCP - General Family Medicine 07/01/15 documented as of this encounter
--- OUTSIDE RECORDS SUMMARY | 2024-01-06 17:43 | External Medical Summary | Summary of Care ---
Author Name Unknown Organization [facility] Address [address] [facility] [place] [address] Phone [phone] Care Team Providers Care Salt Lifter Name Role Phone Juan Hernandez MD Primary Care Provider + Reason for Visit * Reason Onset Date Comments NEW PATIENT Left Shoulder Left Without Being Seen 08/18/2023 * Evaluate & Treat - Unlimited Visits (Within 10 days (routine)) - Authorized Specialty Diagnoses / Procedures Referred By Marysol pulido Referred To Contact Sports Medicine / Orthopedics Diagnoses Rotator cuff syndrome of left shoulder Superior glenoid labrum lesion of left shoulder, initial encounter Ernst Rodriguez PA-C [address] [place] [address] Referral ID Status Reason Start Date Expiration Date Visits Requested Visits Authorized [id number] Authorized Specialty Services Required 07/06/2023 [id number] Encounter Details Date Type Department Care Team (Late st Contact Info) Description 08/18/2023 9:30 AM EDT Office Visit Orthopaedics [facility] [address] [address] Aquilino Robledo MD [address] [place] [address] Left without being seen* Allergies Active Allergy Reactions Criticality Noted Date Comments Topiramate Cough 04/28/2017 documented as of this encounter (statuses as of 08/18/2023) Medications Medication Sig Dispensed Refills Start Date End Date Status Fluticasone Propionate 50 MCG/ACT Nasal Suspension Administer 2 Sprays into each nostril 2 times a day. 18 mL 11 12/08/2020 Active traZODone HCl 100 MG Oral Tablet (Desyrel)Indications: Idiopathic hypersomnia TAKE ONE TABLET BY MOUTH BEFORE BEDTIME 90 Tablet 3 10/02/2022 4 Active Fluocinonide 0.05 % External Cream Apply [...] CHEW 90 Tablet 1 06/08/2023 5 Active Amphetamine-Dextroamp hetamine 15 MG Oral TabletIndications:Hyp ersomnia, periodic TAKE ONE TABLET BY MOUTH TWICE A DAY, EVERY MORNING AND AT NOON 180 Tablet 06/13/2023 4 Active Amphetamine-Dextroamp het ER 30 MG Oral Capsule Extended Release 24 Hour (Adderall XR)Indications:Hypers omnia, periodic TAKE ONE CAPSULE BY MOUTH EVERY DAY IN THE MORNING 90 Capsule 06/13/2023 4 Active Atorvastatin Calcium 80 MG Oral Tablet [...] bedtime. As directed. 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 Increased risk for Familial Hypercholesterolemia.Proband RQ [id number]. Proband report date 10/09/2020 (MM/DD/YYYY). 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 Had UDS done 03/26/12 c/w prescribed adderall - compliant w/ med use agreement. Lumbar disc disease documented as of this encounter (statuses as of 08/18/2023) Resolved Problems Problem Noted Date Diagnosed Date Resolved Date Acne 12/03/2012 04/12/2018 Back pain 09/04/2017 Hip pain 09/04/2017 documented as of this encounter (statuses as of 08/18/2023) Immunizations Name Administration Dates Next Due COVID-19 [...] lent, No Preserve, IM 12/05/2018,12/06/2017,12/07/2016 Seasonal Influenza, Split, I IV3, With Preserve, Inj 11/28/2019,12/07/2016,12/02/2015,2014 TDAP (age 10 and older)(Boostrix) 05/21/2021 [...] Sign Reading Time Taken Comments Blood Pressure - - Pulse - - Temperature - - Respiratory Rate - - Oxygen Saturation - - Inhaled Oxygen Concentration - - Weight 61.7 kg (136 lb) 08/18/2023 9:24 AM EDT Height 154.9 cm (5' 1") 08/18/2023 9:24 AM EDT Body Mass Index 25.7 08/18/2023 9:24 AM EDT documented in this [...] as of this encounter Progress Notes * Aquilino Robledo MD - 08/18/2023 11:22 AM EDT Patient left without being seen by the provider. documented in this encounter Nursing Notes * Darryl Barragan ATC - 08/18/2023 10:20 AM EDT Patient was referred for left shoulder biceps tendon sheath injection by JAYME Rowell. Patient unfortunately stated that she had to leave for work and could not wait any longer and decided to leavewithout being seen today. Darryl Barragan ATC Primary Care Sports Medicine [place] [address] documented in this encounter Plan of Treatment Upcoming Encounters Date Type Department Care Team (Late st Contact Info) Description 09/25/2023 7:30 AM EDT Imaging Radiology [facility] 1st [facility] [address] [facility] [place] [address] 10/20/2023 8:00 AM EDT Office Visit Ophthalmology, [facility] [address] [facility] [place] [address] Charan Churchill MD [address] [place] [address] 05/29/2024 8:20 AM EDT Office Visit Family Practice [facility] [address] [facility] [place] [address] Juan Hernandez MD [address] [facility] [place] [address] Scheduled Procedures Name Priority Associated Diagnoses Date/Ti me COLONOSCOPY FLEXIBLE PROXIMA L DIAGNOSTIC Recall Family history of colonic polyps Scheduled Referrals Name Type Priority Associated Diagnoses Orde r Schedule SPORTS MEDICINE REFERRAL OP Referral Within 10 days (routine) Rotator cuff syndrome of left shoulder Superior glenoid labrum lesion of left shoulder, subsequent encounter Ordered: 07/06/2023 Health Maintenance Due Date Last Done Comments HIV Screening 1985 Hepatitis C Screening 02/13/1988 Hepatitis B (1 of 3 - 19+ 3-dose series) 1989 Cologuard 2015 Fecal Occult Blood Test 2015 Sigmoidoscopy 2015 Zoster Vaccines (1 of 2) 02/13/2020 Depression Screening 09/16/2020 09/17/2019 COVID-19 Vaccine (3 - 2022- season) 2022 05/03/2020, 04/05/2020 Mammogram 09/20/2023 09/19/2022, 08/28, 02/07/2020, Additional history exists Diabetes Screening 02/11/2025 02/11/2022, 0 05/19/2020, 09/07/2016, Additional history exists Lipid Panel 04/07/2026 04/07/2021, 10/29, 11/17/2020, Additional history exists Pap Smear 07/13/2026 07/14/2023, 1210/2018, 02/04/2019, Additional history exists Colonoscopy 01/26/2027 01/26/2022, 01/26/2022 Colorectal Cancer Screening 01/26/2027 Cervical Cancer Screening 07/13/2028 HPV/Co-Test 07/13/2028 07/14/2023 DTaP,Tdap,and Td Vaccines (7 - Td or Tdap) 05/22/2031 05/21/2021, 03/25/2010, 06/13/1974, Additional history exists RETIRED - COLONOSCOPY-EVERY 5 YRS AGES 18-100 Discontinued 01/26/2022, 01/26/2022 Influenza Vaccine (FLU shot) Completed 01/17/2023, 12/15/2021, 11/23/2020, Additional history exists GARDASIL-HPV IMMUNIZATION SERIES Aged Out No longer eligible based on [...] this encounter Medical Devices Implanted Type Area Customer Sales Representative Device Identifier Shelf Expiration Date Model / Serial / Lot Dbx 1cc [id number] - [id number] - [id number] Implanted:Qty : 1 on 03/03/2022 [place] [facility] [place] Spine Cervical MUSCULOSKELETAL TRANSPLANT FND [id number] 10/15/2023 [id number] / [id number] / [id number] Spacer Avs [id number] - [id number] Implanted:Qty : 2 on 03/03/2022 by Marilyn Aquino [place] [facility] [place]: Spine Cervical SHARITA : SPINE [id number] / / Plate Cerv Cons 2 Level 34mm - [id number] Implanted:Qty : 1 on 03/03/2022 by Marilyn Aquino [place] [facility] [place]: Spine Cervical SHARITA : SPINE [id number] / / Screw Olivia 4x14mm Self Ca - [id number] Implanted:Qty : 6 on 03/03/2022 by Marilyn Aquino [place] [facility] [place]: Spine Cervical SHARITA : SPINE [id number] / / Lens [id number] 12.5mm+23.00 - [id number] - [id number] Implanted:Qty : 1 on 09/01/2022 by Manuel Saba MD at OR [facility] Right: Eye BAUSCH & LOMB 01/26/2025 [id number] / [id number] / [id number] documented as of this encounter Visit Diagnoses Diagnosis Left without being seen- Primary documented in this encounter Advance Directives * [...] Discussed due to patient's condition Care Teams Salt Lifter Relationship Specialty Start Date End Date Juan Hernandez MD [address] [place] [address] PCP - General Family Medicine 07/01/15 documented as of this encounter
--- OUTSIDE RECORDS SUMMARY | 2024-01-06 17:43 | External Medical Summary | Summary of Care ---
Author Name Unknown Organization [facility] Address [address] [place] [facility] [place] [facility] [place] [address] Phone [phone] Care Team Providers Care Director Erp Name Role Phone Juan Hernandez MD Primary Care Provider + Reason for Visit * Reason Onset Date Comments Medication Pre-auth 08/30/2023 levoceterizi ne Encounter Details Date Type Department Care Team (Late st Contact Info) Description 08/30/2023 Telephone Family Practice [facility] [address] [place] [address] Juan Hernandez MD [address] [place] [address] Medication Pre-auth (levoceterizine) Allergies Active Allergy Reactions Criticality Noted Date Comments Topiramate Cough 04/28/2017 documented as of this encounter (statuses as of 09/01/2023) Medications Medication Sig Dispensed Refills Start Date End Date Status Fluticasone Propionate 50 MCG/ACT Nasal Suspension Administer 2 Sprays into each nostril 2 times a day. 18 mL 11 12/08/2020 Active traZODone HCl 100 MG Oral Tablet (Desyrel)Indications: Idiopathic hypersomnia TAKE ONE TABLET BY MOUTH BEFORE BEDTIME 90 Tablet 3 10/02/2022 Active Fluocinonide 0.05 % External Cream Apply [...] directed. 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 Increased risk for Familial Hypercholesterolemia.Proband RQ [id number]. Proband report date 10/09/2020 (MM/DD/YYYY). 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 Had UDS done 03/26/12 c/w prescribed adderall - compliant w/ med use agreement. Lumbar disc disease documented as of this encounter (statuses as of 09/01/2023) Resolved Problems Problem Noted Date Diagnosed Date Resolved Date Acne 12/03/2012 04/12/2018 Back pain 09/04/2017 Hip pain 09/04/2017 documented as of this encounter (statuses as of 09/01/2023) Immunizations Name Administration Dates Next Due COVID-19 mRNA, LNP-s, No Pre serve, 2-Dose Series ([facility]) 05/03/2020,04/05/2020 DTaP Dipth/Tet/Acell Pertussis (Infanrix), Peds 06/13/1974,06/10/1971,1970,1970 [...] Telephone Encounter - Tori Rain RPh - 09/01/2023 11:27 AM EDT Patient notified via [facility]. Thanks, Tori Rain, PharmD Clinical Pharmacist [facility] Clinical [facility]acy Services ([facility]) [phone] 09/01/2023 11:27 AM * Telephone Encounter - David Vega CPhT - 09/01/2023 10:04 AM EDT This is a new PA request. Upon review of this prior authorization request, I verified this request is appropriate. This is prescribed by a department for which [facility] is authorized to review prior authorizations [...] tool confirms this script needs prior authorization Of note, there is nothing currently pending in [facility] for this request. Please advise how to proceed. Thank you, Tayo Vega ([facility]) Automotive Center Manager III [facility] ([facility]) 09/01/2023, 10:04 AM * Telephone Encounter - Romina Wesley CPhT - 08/30/2023 4:27 PM EDT Pharmacy calling to inform doctor that the patient's insurance will not pay for this medication without a completed prior authorization. Did confirm this information with the pharmacy. Pt's current insurance information is as follows: Patient name: Migdalia Madden ID number: [id number] BIN number: [id number] PCN number: [id number] Group number: Subscriber name: Migdalia Madden Primary or Secondary Insurance:Primary Medication: levocetirizine 5mg Reason for Request: pa required Pharmacy and phone number: [facility] [address] [facility] [phone] Rx plan and phone number: [facility] [phone] Is this a new medication for the patient? No. How did the patient obtain the medication on the lastfill? It was covered last time on this same insurance. What alternative medications does the pharmacy have in stock?: Thank you, Romina Wesley CPhT Automotive Center Manager [facility] ([facility]) 08/30/2023, 4:27 PM documented in this encounter Plan of Treatment Upcoming Encounters Date Type Department Care Team (Late st Contact Info) Description 09/25/2023 7:30 AM EDT Imaging Radiology [facility] [address] [place] [address] 10/20/2023 8:00 AM EDT Office Visit Ophthalmology, [address] [place] [address] Charan Churchill MD [address] [place] [address] 05/29/2024 8:20 AM EDT Office Visit Family Practice [facility] [address] [place] [address] Juan Hernandez MD [address] [place] [address] Scheduled Procedures Name Priority Associated Diagnoses Date/Ti [...] 02/13/2020 Depression Screening 09/16/2020 09/17/2019 COVID-19 Vaccine ( season) 2022 05/03/2020, 04/05/2020 Mammogram 09/20/2023 09/19/2022, 08/28, 02/07/2020, Additional history exists Influenza Vaccine (FLU shot) (#1) 2023 01/17/2023, [...] this encounter Medical Devices Implanted Type Area Prototype Technician Device Identifier Shelf Expiration Date Model / Serial / Lot Dbx 1cc [id number] - [id number] - [id number] Implanted:Qty : 1 on 03/03/2022 [place]ilyn Aqu[place] [facility] [place] Spine Cervical MUSCULOSKELETAL TRANSPLANT FND [id number] 10/15/2023 [id number] / [id number] / [id number] Spacer Avs [id number] - [id number] Implanted:Qty : 2 on 03/03/2022 by Marilyn Aquino [place] [facility] [place]: Spine Cervical SHARITA : SPINE [id number] / / Plate Cerv Cons 2 Level 34mm - [id number] Implanted:Qty : 1 on 03/03/2022 by Marilyn Aquino [place] [facility] [place]: Spine Cervical SHARITA : SPINE [id number] / / Screw Olivia 4x14mm Self Ca - [id number] Implanted:Qty : 6 on 03/03/2022 by Marilyn Aqu[place] [facility] [place]: Spine Cervical SHARITA : SPINE [id number] / / Lens [id number] 12.5mm+23.00 - [id number] - [id number] Implanted:Qty : 1 on 09/01/2022 by Manuel Saba MD at [place] [facility] Right: Eye BAUSCH & LOMB 01/26/2025 [id number] / [id number] / [id number] documented as of this encounter Visit Diagnoses [...] Discussed due to patient's condition Care Teams Director Erp Relationship Specialty Start Date End Date Juan Hernandez MD [address] [facility] [place] [address] PCP - General Family Medicine 07/01/15 documented as of this encounter
--- OUTSIDE RECORDS SUMMARY | 2024-01-06 17:43 | External Medical Summary | Summary of Care ---
Author Name Unknown Organization [facility] Address [address] [facility] [place] [address] Phone [phone] Care Team Providers Care Financial Director Name Role Phone Juan Cancino MD Primary Care Provider + Reason for Visit * Reason Onset Date Comments Medication Refill Status Check 11/06/2023 Encounter Details Date Type Department Care Team (Late st Contact Info) Description 11/01/2023 Refill Family Practice [facility] [address] [place] [address] Chandni Ashby CRNP [address] [place] [address] Allergies Active Allergy Reactions Criticality Noted Date Comments Topiramate Cough 04/28/2017 documented as of this encounter (statuses as of 11/06/2023) Medications Medication Sig Dispensed Refills Start Date [...] 12/10/2022 4 Active Armodafinil 250 MG Oral TabletIndications:Id [...] As directed. 60 g 1 11/06/2023 Active Premarin 0.625 MG/GM Vaginal Cream (Estrogens Conjugated) Administer 0.5 g into the vagina at bedtime. As directed. 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 Increased risk for Familial Hypercholesterolemia.Proband RQ [id number]. Proband report date 10/09/2020 (MM/DD/YYYY). 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 Had UDS done 03/26/12 c/w prescribed adderall - compliant w/ med use agreement. Lumbar disc disease documented as of this encounter (statuses as of 11/06/2023) Resolved Problems Problem Noted Date Diagnosed Date Resolved Date Acne 12/03/2012 04/12/2018 Back pain 09/04/2017 Hip pain 09/04/2017 documented as of this encounter (statuses as of 11/06/2023) Immunizations Name Administration Dates Next Due COVID-19 mRNA, LNP-s, No Pre serve, 2-Dose Series ([facility]) 05/03/2020,04/05/2020 DTaP Dipth/Tet/Acell Pertussis (Infanrix), Peds 06/13/1974,06/10/1971,1970,1970 [...] encounter Miscellaneous Notes * Telephone Encounter - Juan Cancino MD - 11/06/2023 9:53 AM EDTSigned Prescriptions: Disp Refills Premarin 0.625 MG/GM Vaginal Cream (Estrog*60 g 1 Sig: Administer 0.5 g into the vagina at bedtime. As directed. Authorizing Provider: JUAN CANCINO * Telephone Encounter - Juan Cancino MD - 11/06/2023 9:53 AM EDTSigned Prescriptions: Disp Refills Premarin 0.625 MG/GM Vaginal Cream (Estrog*60 g 1 Sig: Administer 0.5 g into the vagina at bedtime. As directed. Authorizing Provider: JUAN CANCINO * Telephone Encounter - Abbi Klein PHARM Tech - 11/06/2023 9:12 AM EDT Pharmacy checking status of refill. Thanks, Abbi Klein News Librarian [address] [facility] ([facility]) 11/06/2023,9:12 AM * Telephone Encounter - Christophe Deluca - 11/02/2023 8:02 PM EDTPending Prescriptions: Disp Refills Premarin 0.625 MG/GM Vaginal Cream (Estrog*60 g 1 Sig: Administer 0.5 g into the vagina at bedtime. As directed. * Telephone Encounter - Abbi Klein PHARM Tech - 11/02/2023 1:55 PM EDT Did you pend patient's preferred pharmacy and medication before forwarding?yes Pharmacy: [facility] Pharmacy requesting 60 g for 90ds as pended, please approve if appropriate. Pending Prescriptions: Disp Refills Premarin 0.625 MG/GM Vaginal Cream (Estro*60 g 1 Sig: Administer 0.5 g into the vagina at bedtime. As directed. Last Visit: 07/14/2023 (in office), Visit date not found (telemedicine) Next Visit: 05/29/2024 If no future appointments scheduled, and last appointment is greater than a year ago, please schedule patient for a follow-up appointment Last date the medication was ordered: 08/04/2023 Is this request for a controlled substance?No Urine Drug Screen: Results for orders placed or performed in visit on 03/26/12 TOX SCREEN, URINE, W/ CONFIRMATION Result Value Amphetamine POSITIVE (A) Barbiturates NEGATIVE Benzodiazepines NEGATIVE Cannabinoids NEGATIVE Cocaine Metabolite NEGATIVE Morphine / Codeine NEGATIVE OXYCODONE NEGATIVE METHADONE MEDICAL NEGATIVE TOX COMMENT SEE COMMENT DETECTION LIMIT SEE COMMENT *Note: Due to a large number of results and/or encounters for the requested time period, some results have not been displayed. A complete set of results can be found in Results Review. Patient Phone Numbers Labs: Lab Results Component Value Date/Time CREAT 0.7 02/11/2022 01:34 PM CREAT 0.8 09/07/2016 12:06 PM POTASSIUM 4.0 02/11/2022 01:34 PM POTASSIUM 3.6 09/07/2016 12:06 PM TSH 1.44 09/07/2016 12:06 PM LDL 90 04/07/2021 09:48 AM LDL 102 07/03/2013 08:37 AM LDL NOT APPLICABLE 07/03/2013 08:37 AM ALT 15 04/07/2021 09:48 AM ALT 32 07/03/2013 08:37 AM HGBA1C 5.1 06/13/2016 10:34 AM documented in this encounter Plan of Treatment Upcoming Encounters Date Type Department Care Team (Late st Contact Info) Description 11/27/2023 8:00 AM EDT Office Visit Orthopaedics [facility] [address] [place] [address] Darryl Og MD [address] [place] [address] 05/29/2024 8:20 AM EDT Office Visit Family Practice [facility] [address] [place] [address] Juan Cancino MD [address] [place] [address] 07/31/2024 7:45 AM EDT Imaging Radiology [facility] 1st [facility] [address] [place] [address] Scheduled Procedures Name Priority Associated Diagnoses Date/Ti [...] this encounter Medical Devices Implanted Type Area Wool Buyer Device Identifier Shelf Expiration Date Model / Serial / Lot Dbx 1cc [id number] - [id number] - [id number] Implanted:Qty : 1 on 03/03/2022 by Marilyn Aquino MD at [place] [facility] [place]/A: Spine Cervical MUSCULOSKELETAL TRANSPLANT FND [id number] 10/15/2023 [id number] / [id number] / [id number] Spacer Avs [id number] - [id number] Implanted:Qty : 2 on 03/03/2022 by Marilyn Aquino MD at [place] [facility] [place] N/A: Spine Cervical SHARITA : SPINE [id number] / / Plate Cerv Cons 2 Level 34mm - [id number] Implanted:Qty : 1 on 03/03/2022 by Marilyn Aquino MD at [place] [facility] [place] N/A: Spine Cervical SHARITA : SPINE [id number] / / Screw Olivia 4x14mm Self Ca - [id number] Implanted:Qty : 6 on 03/03/2022 by Marilyn Aquino MD at [place] [facility] [place] N/A: Spine Cervical SHARITA : SPINE [id number] / / Lens [id number] 12.5mm+23.00 - [id number] - [id number] Implanted:Qty : 1 on 09/01/2022 by Manuel Saba MD at [place] [facility] Right: Eye BAUSCH & LOMB 01/26/2025 [id number] / [id number] / [id number] documented as of this encounter Advance Directives [...] due to patient's condition Care Teams Financial Director Relationship Specialty Start Date End Date Juan Cancino MD [address] [place] [address] PCP - General Family Medicine 07/01/15 documented as of this encounter
--- OUTSIDE RECORDS SUMMARY | 2024-01-06 17:43 | External Medical Summary | Summary of Care ---
Author Name Unknown Organization [facility] Address [address] [place] [address] Phone [phone] Care Team Providers Care Gear Cutting Machine Set Up Operator Name Role Phone Juan Cancino MD Primary Care Provider + Reason for Visit * Reason Comments Medication Refill Encounter Details Date Type Department Care Team (Late st Contact Info) Description 07/18/2023 Refill Family Practice [facility] [address] [facility] [place] [address] Juan Cancino MD 132 [facility] [place] [id number] Family history of premature CAD; Dyslipidemia, goal LDL below 70 Allergies Active Allergy Reactions Criticality Noted Date Comments Topiramate Cough 04/28/2017 documented as of this encounter (statuses as of 07/18/2023) Medications Medication Sig Dispensed Refills Start Date [...] CHEW 90 Tablet 1 06/08/2023 5 Active Amphetamine-Dextroam phetamine 15 MG Oral TabletIndications:Hy persomnia, periodic TAKE ONE TABLET BY MOUTH TWICE A DAY, EVERY MORNING AND AT NOON 180 Tablet 06/13/2023 4 Active Amphetamine-Dextroam phet ER 30 MG Oral [...] a week. 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 Increased risk for Familial Hypercholesterolemia.Proband RQ [id number]. Proband report date 10/09/2020 (MM/DD/YYYY). 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 Had UDS done 03/26/12 c/w prescribed adderall - compliant w/ med use agreement. Lumbar disc disease documented as of this encounter (statuses as of 07/18/2023) Resolved Problems Problem Noted Date Diagnosed Date Resolved Date Acne 12/03/2012 04/12/2018 Back pain 09/04/2017 Hip pain 09/04/2017 documented as of this encounter (statuses as of 07/18/2023) Immunizations Name Administration Dates Next Due COVID-19 mRNA, LNP-s, No Pre serve, 2-Dose Series (Real Time Tomography) 05/03/2020,04/05/2020 DTaP Dipth/Tet/Acell Pertussis (Infanrix), Peds 06/13/1974,06/10/1971,1970,1970 [...] in the Last Year Never true 09/17/2019 Sex and Gender Information Value Date Recorded [...] Telephone Encounter - Juan Cancino MD - 07/18/2023 8:48 PM EDTSigned Prescriptions: Disp Refills Atorvastatin Calcium 80 MG Oral Tablet (Li*90 Tab*3 Sig: TAKE ONE TABLET BY MOUTH EVERY day Authorizing Provider: JUAN CANCINO * Telephone Encounter - Juan Cancino MD - 07/18/2023 8:48 PM EDTSigned Prescriptions: Disp Refills Atorvastatin Calcium 80 MG Oral Tablet (Li*90 Tab*3 Sig: TAKE ONE TABLET BY MOUTH EVERY day Authorizing Provider: JUAN CANCINO * Telephone Encounter - Solange Morales LPN - 07/18/2023 12:08 PM EDTPending Prescriptions: Disp Refills Atorvastatin Calcium 80 MG Oral Tablet (Li*90 Tab*0 Sig: TAKE ONE TABLET BY MOUTH EVERY day * Telephone Encounter - Solange Morales LPN - 07/18/2023 12:07 PM EDT Did you pend patient's preferred pharmacy and medication before forwarding?yes Pharmacy: [email or web address] Pending Prescriptions: Disp Refills Atorvastatin Calcium 80 MG Oral Tablet (L*90 Tab*0 Sig: TAKE ONE TABLET BY MOUTH EVERY day Last Visit: 07/14/2023 (in office), Visit date not found (telemedicine) Next Visit: 05/29/2024 If no future appointments scheduled, and last appointment is greater than a year ago, please schedule patient for a follow-up appointment Last date the medication was ordered: 05/02/2023 Is this request for a controlled substance?No [...] 12:06 PM TSH 1.44 09/07/2016 12:06 PM LDLCALC 90 04/07/2021 09:48 AM LDLCALC 102 07/03/2013 08:37 AM LDLDIRECT NOT APPLICABLE 07/03/2013 08:37 AM LDLDIRECT 174 (H) 09/13/2011 05:11 PM LDLCHOL 109 (H) 11/17/2020 08:13 AM ALT 15 04/07/2021 09:48 AM ALT 32 07/03/2013 08:37 AM HGBA1C 5.1 06/13/2016 10:34 AM * Telephone Encounter - Benita You CPhT - 07/18/2023 10:32 AM EDT Pharmacy calling to request a refill on atorvastatin 80mg. Medication was last prescribed by cardiology but patient is asking if PCP can take over the medication. Please advise if this is appropriateand send to [email or web address] if agreeable. Thank you, Benita You [facility] Head Of Training And Development III Centralized Clinical Pharmacy Services(CCPS) (formerly Telepharmacy) 07/18/2023,10:32 AM documented in this encounter Plan of Treatment Upcoming Encounters Date Type Department Care Team (Late st Contact Info) Description 08/18/2023 9:30 AM EDT Office Visit [facility] [address] [place] [address] Aquilino Robledo MD [address] [facility] [place] [address] 09/25/2023 7:30 AM EDT Imaging Radiology [facility] 1st Floor, [place] [address] [facility] [place] [address] 10/20/2023 8:00 AM EDT Office Visit Ophthalmology, [facility] [address] [facility] [place] [address] Charan Churchill MD [address] [place] [address] [place] [address] 05/29/2024 8:20 AM EDT Office Visit Family Practice [facility] [address] [facility] [place] [address] Juan Cancino MD 132 [facility] [place] [address] Scheduled Procedures Name Priority Associated Diagnoses Date/Ti me COLONOSCOPY FLEXIBLE PROXIMA L DIAGNOSTIC Recall Family history of colonic polyps Health Maintenance Due Date Last Done Comments HIV Screening 1985 Hepatitis C Screening 02/13/1988 Hepatitis B (1 of 3 - 19+ 3-dose series) 1989 HPV/Co-Test 02/13/2000 Cologuard 2015 Fecal Occult Blood Test 2015 Sigmoidoscopy 2015 Zoster Vaccines (1 of 2) 02/13/2020 Depression Screening 09/16/2020 09/17/2019 Cervical Cancer Screening 02/04/2022 Pap Smear 02/04/2022 02/04/2019, 10/2018, 04/09/2015, Additional history exists COVID-19 Vaccine ( season) 2022 05/03/2020, 04/05/2020 Mammogram 09/20/2023 09/19/2022, 08/28, 02/07/2020, Additional history exists Diabetes Screening 02/11/2025 02/11/2022, 0 05/19/2020, 09/07/2016, Additional history exists Lipid Panel 04/07/2026 04/07/2021, 10/29, 11/17/2020, Additional history exists Colonoscopy 01/26/2027 01/26/2022, 01/26/2022 Colorectal Cancer Screening 01/26/2027 DTaP,Tdap,and Td Vaccines (7 - Td or [...] this encounter Medical Devices Implanted Type Area Support Merchandiser Device Identifier Shelf Expiration Date Model / Serial / Lot Dbx 1cc [id number] - [id number] - [id number] Implanted:Qty : 1 on 03/03/2022 by Marilyn Aquino MD at [place] [facility] [place]/A: Spine Cervical MUSCULOSKELETAL TRANSPLANT FND [id number] 10/15/2023 [id number] / [id number] / [id number] Spacer Avs [id number] - [id number] Implanted:Qty : 2 on 03/03/2022 by Marilyn Aquino MD at [place] [facility] [place] N/A: Spine Cervical SHARITA : SPINE [id number] / / Plate Cerv Cons 2 Level 34mm - [id number] Implanted:Qty : 1 on 03/03/2022 by Marilyn Aquino MD at [place] [facility] [place] N/A: Spine Cervical SHARITA : SPINE [id number] / / Screw Olivia 4x14mm Self Ca - [id number] Implanted:Qty : 6 on 03/03/2022 by Marilyn Aquino MD at [place] [facility] [place] N/A: Spine Cervical SHARITA : SPINE [id number] / / Lens [id number] 12.5mm+23.00 - [id number] - [id number] Implanted:Qty : 1 on 09/01/2022 by Manuel Saba MD at OR [facility] Right: Eye [employer] 01/26/2025 [id number] / [id number] / [id number] documented as of this encounter Visit Diagnoses Diagnosis Family history of premature CAD Family history of ischemic heart disease Dyslipidemia, goal LDL below 70 Other and unspecified hyperlipidemia documented in this encounter Advance Directives * [...] Discussed due to patient's condition Care Teams Gear Cutting Machine Set Up Operator Relationship Specialty Start Date End Date Juan Cancino MD [address] [place] [address] PCP - General Family Medicine 07/01/15 documented as of this encounter
--- OUTSIDE RECORDS SUMMARY | 2024-01-06 17:43 | External Medical Summary | Summary of Care ---
Author Name Unknown Organization [facility] Address [address] [facility] [place] [address] Phone [phone] Care Team Providers Care Plug Assembler Name Role Phone Juan Hernandez MD Primary Care Provider + Reason for Visit * Reason Comments Follow Up 1 year follow up Encounter Details Date Type Department Care Team (Late st Contact Info) Description 10/20/2023 8:00 AM EDT Office Visit Ophthalmology, [facility] [address] [place] [address] Charan Churchill MD [address] [place] [phone] Right retinal detachment* Allergies Active Allergy Reactions Criticality Noted Date Comments Topiramate Cough 04/28/2017 documented as of this encounter (statuses as of 10/20/2023) Medications Medication Sig Dispensed Refills Start Date [...] Semaglutide(0.25 or 0.5MG/DOS) 2 MG/3ML Solution Pen-injector ([employer]) Inject 0.5 mg under the skin once a week. 9 mL 1 07/18/2023 Active Premarin 0.625 MG/GM Vaginal Cream (Estrogens Conjugated) Administer 0.5 g into the vagina at bedtime. As directed. 45 g 1 08/04/2023 4 Active Amphetamine-Dextroamp hetamine 15 MG Oral TabletIndications:Hyp ersomnia, periodic TAKE ONE TABLET BY MOUTH TWICE A DAY, EVERY MORNING AND AT NOON 180 Tablet 09/19/2023 5 Active Amphetamine-Dextroamp het ER 30 MG Oral Capsule Extended Release 24 Hour (Adderall XR)Indications:Hypers omnia, periodic TAKE ONE CAPSULE BY MOUTH EVERY DAY IN THE MORNING 90 Capsule 09/19/2023 5 Active documented as of this encounter (statuses as of 10/20/2023) Active Problems Problem Noted Date Diagnosed Date S/P cervical spinal fusion 03/04/2022 Overview: 03/21 Cervical spinal stenosis 03/03/2022 Cervical radiculopathy 03/03/2022 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 Increased risk for Familial Hypercholesterolemia.Proband RQ [id number]. Proband report date 10/09/2020 (MM/DD/YYYY). 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 Had UDS done 03/26/12 c/w prescribed adderall - compliant w/ med use agreement. Lumbar disc disease documented as of this encounter (statuses as of 10/20/2023) Resolved Problems Problem Noted Date Diagnosed Date Resolved Date Acne 12/03/2012 04/12/2018 Back pain 09/04/2017 Hip pain 09/04/2017 documented as of this encounter (statuses as of 10/20/2023) Immunizations Name Administration Dates Next Due COVID-19 mRNA, LNP-s, No Pre serve, 2-Dose Series ([employer] 05/03/2020,04/05/2020 DTaP Dipth/Tet/Acell Pertussis (Infanrix), Peds 06/13/1974,06/10/1971,1970,1970 [...] as of this encounter Progress Notes * Charan Churchill MD - 10/20/2023 8:49 AM EDT [facility] [place] Nursing notes reviewed. Mood and affect: normal POST-RETINA SURGERY NOTE: HPI: Migdalia Madden is a 51 year old female s/p retinal surgery. Base Eye Exam Visual Acuity (Snellen - Linear) Right Left Dist cc 20/30 -1 20/25 -2 Tonometry (Tonopen, 8:27 AM) Right Left Pressure 6 11 Tonometry #2 (Tonopen, 8:27 AM) Right Left Pressure 7 Tonometry #3 (Tonopen, 8:27 AM) Right Left Pressure 5 Pupils Pupils APD Right PERRL None Left PERRL None Visual Gonzalez (Counting fingers) Right Left Full Full Extraocular Movement Right Left Full, Ortho Full, Ortho Neuro/Psych Oriented x3: Yes Mood/Affect: Normal Dilation Both eyes: 0.5% Proparacaine @ 8:26 AM Dilation #2 Both eyes: 1.0% Mydriacyl, 2.5% Phenylephrine @ 8:26 AM Dilation Comments Patient cautioned that effects of dilation may last 2-7 hours dependant upon individual reaction. It was discussed that driving while dilated is not recommended. Slit Lamp and Fundus Exam External Exam Right Left External Normal Normal Slit Lamp Exam Right Left Lids/Lashes Normal Normal Conjunctiva/Sclera White and quiet White and quiet Cornea Clear Clear Anterior Chamber Deep and quiet Deep and quiet Iris Round and reactive Round and reactive Lens PCIOL s/p yag 1+ Nuclear sclerosis Fundus Exam Right Left Vitreous s/p PPV Normal, no PVD Disc Normal Normal C/D Ratio 0.2 0.2 Macula Normal Normal Vessels Normal Normal Periphery Attached 360 with laser around tear at 11, 1230, 9 and laser inferior Normal OCT OD tr ERM OS compact A/P: 1. S/P 25G PPV/EL/C3F8 10% for RD OD -surgery date: 09/01/2021--Kerline -IOP wnl; no infection; retina all flat 2. Tr ERM OD NVS, observe 3. No PVD OS RD precautions 4. PCIOL stable S/p yag Follow Up: Return in about 1 year (around 10/19/2024) for DFE, OCT OU. | For: DFE, OCT OU Charan Churchill MD PCP: Juan Hernandez MD documented in this encounter Nursing Notes * Rosa Lopes LPN - 10/20/2023 8:16 AM EDT Migdalia Madden is a 53 year old year old female who presents for s/p RD OD. Last Office Visit: 10/07/2022 (in office), Visit date not found (telemedicine) Patient currently states "I feel like it's a little worse, like it's not clear but school superintendent toldher there was no change" Are you diabetic? No Do you drive? yes OCT image(s) of both eyes acquired and filed/scanned into chart. documented in this encounter Plan of Treatment Upcoming Encounters Date Type Department Care Team (Late st Contact Info) Description 05/29/2024 8:20 AM EDT Office Visit Family Practice [facility] [place] [address] Juan Hernandez MD [address] [place] [address] 07/31/2024 7:45 AM EDT Imaging Radiology [facility] [address] [facility] [place] [address] 10/18/2024 8:15 AM EDT Office Visit Ophthalmology, [facility] [address] [facility] [place] [address] Charan Churchill MD [address] [place] [address] Scheduled Orders Name Type Priority Associated Diagnoses Orde r Schedule RETINA SCAN DIAGNOSTIC IMAGE, POSTERIOR Procedures Routine Right retinal detachment Ordered: 10/20/2023 Scheduled Procedures Name Priority Associated Diagnoses Date/Ti [...] this encounter Medical Devices Implanted Type Area Floor Covering Layer Device Identifier Shelf Expiration Date Model / Serial / Lot Dbx 1cc [id number] - [id number] - [id number] Implanted:Qty : 1 on 03/03/2022 by Marilyn Aquino MD [place] [facility] [place]/A: Spine Cervical MUSCULOSKELETAL TRANSPLANT FND [id number] 10/15/2023 [id number] / [id number] / [id number] Spacer Avs [id number] - [id number] Implanted:Qty : 2 on 03/03/2022 by Marilyn Aquino MD [place] [facility] [place]/A: Spine Cervical SHARITA : SPINE [id number] / / Plate Cerv Cons 2 Level 34mm - [id number] Implanted:Qty : 1 on 03/03/2022 by Marilyn Aquino MD at [place] [facility] [place] N/A: Spine Cervical SHARITA : SPINE [id number] / / Screw Olivia 4x14mm Self Ca - [id number] Implanted:Qty : 6 on 03/03/2022 by Marilyn Aquino MD at [place] [facility] [place] N/A: Spine Cervical SHARITA : SPINE [id number] / / Lens [id number] 12.5mm+23.00 - [id number] - [id number] Implanted:Qty : 1 on 09/01/2022 by Manuel Saba MD at OR [facility] Right: Eye [employer] 01/26/2025 [id number] / [id number] / [id number] documented as of this encounter Visit Diagnoses Diagnosis Right retinal detachment- Primary Unspecified retinal detachment documented in this encounter Advance Directives * [...] Discussed due to patient's condition Care Teams Plug Assembler Relationship Specialty Start Date End Date Juan Hernandez MD [address] [place] [address] PCP - General Family Medicine 07/01/15 documented as of this encounter
--- OUTSIDE RECORDS SUMMARY | 2024-01-06 17:43 | External Medical Summary | Summary of Care ---
Author Name Unknown Organization [facility] Address [address] [place] [address] Phone [phone] Care Team Providers Care Helmet Coverer Name Role Phone Juan Hernandez MD Primary Care Provider + Reason for Referral * Evaluate & Treat - Unlimited Visits (Within 10 days (routine)) - Authorized Specialty Diagnoses / Procedures Referred By Marysol pulido Referred To Contact Pain Management / Pain Medicine Diagnoses Osteoarthritis of lumbar spine, unspecified spinal osteoarthritis complication status Darryl Og MD [address] [place] [address] Referral ID Status Reason Start Date Expiration Date Visits Requested Visits Authorized [id number] Authorized Specialty Services Required 11/27/2023 999 [id number] Question Answer Referral Priority Within 10 days (routine) Where should this appointment be scheduled? [facility] Reason for referral? Interventional Pain Management - (Injection) What condition is the patient being referred for? Lumbar Radiculopathy What is the preferred location to have this test performed? [facility] Comments Patient Name: Migdalia Lomas Date of : 1970 Department Phone Number: MRI or CT (if unable to have a MRI) is recommended if any of the following apply: 1. Patient has neck or back pain with radiation to extremities. A previous MRI will be accepted if symptoms unchanged since prior MRI. 2. Spinal surgery since last MRI. If yes, order a MRI with and without contrast. 3. Hx or ongoing cancer treatment. Patient will need spine x-ray (Ap/Lat) for axial neck or back pain if not done previously. Fax No. [facility] [phone] or contact director of front office [phone] Fax No. [facility] [phone] or contact director of front office [phone] Fax No. [facility] [phone] or contact director of front office [phone] Reason for Visit * Reason Comments NEW PATIENT B/L Hip Pain * Evaluate & Treat - Unlimited Visits (Within 10 days (routine)) - Authorized Specialty Diagnoses / Procedures Referred By Marysol pulido Referred To Contact Orthopaedic Surgery / Orthopedics Diagnoses Bilateral hip pain Juan Hernandez MD [address] [facility] [place] [address] Referral ID Status Reason Start Date Expiration Date Visits Requested Visits Authorized [id number] Authorized Specialty Services Required 10/19/2023 999 999 Encounter Details Date Type Department Care Team (Latest Contact Info) Description 11/27/2023 8:00 AM EDT Office Visit Orthopaedics [facility] [address] [place] [address] Darryl Og MD [address] [facility] [place] [address] Chronic bilateral low back pain with bilateral sciatica*; Greater trochanteric pain syndrome of both lower extremities; Osteoarthritis of lumbar spine, unspecified spinal osteoarthritis complication status; Hip pain, right; Hip pain, left Allergies Active Allergy Reactions Criticality Noted Date Comments Topiramate Cough 04/28/2017 documented as of this encounter (statuses as of 11/27/2023) Medications Medication Sig Dispensed Refills Start Date [...] Semaglutide(0.25 or 0.5MG/DOS) 2 MG/3ML Solution Pen-injector (Mipsoic) Inject 0.5 mg under the skin once [...] As directed. 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 Increased risk for Familial Hypercholesterolemia.Proband RQ [id number]. Proband report date 10/09/2020 (MM/DD/YYYY). 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 Had UDS done 03/26/12 c/w prescribed adderall - compliant w/ med use agreement. Lumbar disc disease documented as of this encounter (statuses as of 11/27/2023) Resolved Problems Problem Noted Date Diagnosed Date Resolved Date Acne 12/03/2012 04/12/2018 Back pain 09/04/2017 Hip pain 09/04/2017 documented as of this encounter (statuses as of 11/27/2023) Immunizations Name Administration Dates Next Due COVID-19 [...] Influenza, Trivalen t, (IIV3), with Preserv, (Fluzone) 11/28/2019,12/07/2016,12/02/2015,2014,12/10/2013,11/29/2012,11/29/2011,0 11/25/2010,11/23/2009 TDAP (age 10 and older)(Boostrix) 05/21/2021 TDAP, [...] as of this encounter Progress Notes * Darryl Og MD - 11/27/2023 8:31 AM EDT Migdalia Rodriguez Maryanne [id number] Migdaliahollis Clarkzabeth Maryanne is a 53 year old female who presents for consultation for bilateralhip injury/pain to [facility] Sports Medicine [facility]. Consult requested by Juan Hernandez MD. Migdalia Lomas is here unaccompanied Quality: reviewed and agree with Nursing Notes for HPI elements History: History - NEW Pt B/L hip pain and low back pain w/out sciatica 07/06 today Xray B/L hip on 11/23/23 Pt stated she had pain down sides of her legs and denies sciatica Pt stated she had hip injection by Dr. Hagan nearly 8 yrs ago and had about 2 wks of pain relief Pt stated she went to [facility] and had Bursitis r/o within the last year Pt stated she attended PT x 3 mos [facility]; Pt stated she did see benefit but Pt was unable to maintain Pt denies sx to b/l hip ROS: ROS per HPI otherwise non-contributory Past Medical History: Diagnosis Date Acne 12/03/2012 Attention deficit disorder without hyperactivity Back pain Excessive daytime sleepiness 05/09/2017 Insomnia 08/26/2016 Sleep maint Lumbar disc disease MEDICATION USE AGREEMENT for ADD meds Obesity 10/12/2016 S/P cervical spinal fusion 03/04/202203/21 Family History Problem Relation Name Age of Onset Diabetes Mother they live near [address] COVID Heart Disorder Mother 60 3v CABG. [place] s/p gastric bypass. Hypertension Mother Heart attack Mother Heart disease Father 66 CAD-stent Heart Disorder Sister 45 3v CABG-smokes No Known Problems Brother No Known Problems Brother Cancer Grandmother (Maternal) 65 colon cancer Colon cancer Grandmother (Maternal) Heart Disorder Grandfather (Maternal) older Cancer Grandfather (Maternal) colon Diabetes Grandfather (Maternal) No Past Hx None no known hx breast or ovarian Ca Social History Socioeconomic History Marital status: Spouse name: Not on file Number of children: Not on file Years of education: Not on file Highest education level: Not on file Occupational History Occupation: [employer] 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 Tobacco Use Smoking status: Never Smokeless tobacco: Never Vaping Use Vaping status: Never Used Substance and Sexual Activity Alcohol use: Yes Comment: 0-2. no binge Drug use: No Sexual activity: Yes Partners: Male Comment: . no DV. daughter--te[place]. Other Topics Concern Not on file Social History Narrative 1 dog in her home. No mold. Helps w/soccer concession. Likes being outside, gardening. Social Determinants of Health Financial Resource Strain: Not on file Food Insecurity: No Food Insecurity (09/17/2019) Hunger Vital Sign Worried About Running Out of Food in the Last Year: Never true Ran Out of Food in the Last Year: Never true Transportation Needs: Not on file Social Connections: Unknown (08/15/2023) Social Connections How often do you feel lonely or isolated from those around you? (Adult - for ages 18 years and over): Not on file Housing Stability: Not on file Physical Exam Constitutional: Generally well-nourished and in no acute distress Psychiatric: Mood and Affect normal Eyes: EOMI Respiratory: Normal respiratory effort with regular rate and rhythm Cardiovascular: No edema in the affected extremity (s) Hip and Pelvis Exam Gait: Limp: Positive Antalgic: Positive Scars / Previous Surgery or Trauma: None Alignment: Normal Palpation: Tender palpate bilaterally at the greater trochanter not at the anterior hip joint, leftwas more tender in the right, also tender palpate across the lumbar spine Hernia: No ROM: Flexion (normal 120-130): L - 120, R - 120 Internal at 90 (normal 45): L - 45, R - 45 External at 90 (normal 50): L - 50, R - 50 Internal rotation of the hips created pain at the greater trochanter but not within the hip joint Strength: 5/5 bilaterally with ankle plantar and dorsiflexion, knee flexion and extension, hip flexion and hip abduction Lumbar Spine Tests: negative SLR Slump Test: Negative Radiology: 11/23/2023: X-ray Frontal view of the pelvis, two views right hip, two views left hip, three views lumbar spine FINDINGS: Hip joint spaces are relatively maintained. Small osteophytes at the lateral acetabular rims bilaterally. Femoral heads are rounded in contour. Sacroiliac joints and pubic symphysis appear fairly maintained. Minimal anterior loss in height at T12, likely unchanged. Potential minimal retrolisthesis of L5 onS1. Severe intervertebral disc space loss at L5-S1 with vacuum phenomenon and small osteophytes. More mild degenerative change elsewhere about the lumbar spine with mild posterior facet disease, osteophytes and scattered mild disc space loss. IMPRESSION: Focally severe degenerative change at L5-S1 with rather mild degenerative change elsewhere about the lumbar spine. Minimal anterior loss in height at T12, unchanged. Only mild bilateral hip arthrosis with slight lateral acetabular spurring bilaterally. Assessment and Plan: 1) suspect bilateral greater trochanteric pain syndrome with left currently being more symptomatic than right She has already completed a 4 month course of physical therapy for both her hips and back and did not have benefit. She attended from May to August of 2023. Recommended trial of a trochanteric bursa steroid injection, Left side only performed today 10/31/2023 with ultrasound guidance She will follow up in 3-6 weeks for re-evaluation potential ultrasound-guided right greater trochanteric bursa steroid injection Note: Patient has had a previous hip injection review of the chart shows that the injection was performed on 10/01/[address] Hagan ([facility]) with fluoro guidance. It was a left hip intra-articular/FA J steroid injection. She reports that helped for 2 weeks. 2) chronic back pain with suspected radicular symptoms She has already completed a 4 month course of physical therapy for both her hips and back and did not have benefit. She attended from May to August of 2023. She has had several lumbar spine studies which are relative recent including MRI of the lumbar spine and nuclear medicine studies She denies seen pain management recently. [facility] procedures done at that time Pain management referral PROCEDURE NOTE: TROCHANTERIC BURSA INJECTION Laterality: Left Time out: Prior to injection, a time out was called to confirm the administration of appropriate medicine, patient name, procedure and confirm to the best of our ability and knowledge the presence of any necessary risks and benefits. Patient verbalized understanding. Ultrasound utilized to guide injection. During the procedure, the needle was visualized in plane and was advanced with continuous ultrasound guidance to the appropriate anatomical landmark as described in the procedure. Ultrasound required due to location of joint being too deep to accurately inject without ultrasoundguidance Sterile technique applied using gloves, chlorhexadine, and alcohol swabs. Ethyl chloride spray for local anesthetic. Trochanteric bursa region injected with lateral approach using 3.5 inch, 22 gauge needle. Injected with 1 mL Lidocaine 1% - 1 mL Triamcinolone Acetonide 40 mg/mL >> inject 2 mL. Patient tolerated procedure with no significant bleeding or adverse reaction. Patient instructed to call or return to clinic for fever, warmth, unusual redness at injection sitefor potential infection. Patient also advised regarding post-procedural pain. Darryl Og MD Primary Care Sports Medicine Orthopaedics [facility] [address] [facility] [place] [id number] documented in this encounter Nursing Notes * Diamond Carrillo LPN - 11/27/2023 8:02 AM EDT NEW Pt B/L hip pain and low back pain w/out sciatica 07/06 today Xray B/L hip on 11/23/23 Pt stated she had pain down sides of her legs and denies sciatica Pt stated she had hip injection by Dr. Hagan nearly 8 yrs ago and had about 2 wks of pain relief Pt stated she went to [facility] and had Bursitis r/o within the last year Pt stated she attended PT x 3 mos @ [facility]; Pt stated she did see benefit but Pt was unable to maintain Pt denies sx to b/l hip Pt is unaccompanied today Xray L spine today Katlyn Salazar LPN documented in this encounter Plan of Treatment Upcoming Encounters Date Type Department Care Team (Late st Contact Info) Description 05/29/2024 8:20 AM EDT Office Visit Family Practice [facility] [address] [place] [address] Juan Hernandez MD [address] [place] [address] 07/31/2024 7:45 AM EDT Imaging Radiology [facility] [address] [place] [address] Pending Results Name Type Priority Associated Diagnoses Date /Time XR L SPINE COMPLETE Medical Imaging Routine Chronic bilateral low back pain with bilateral sciatica 11/27/2023 8:49 AM EDT Scheduled Procedures Name Priority Associated Diagnoses Date/Ti me COLONOSCOPY FLEXIBLE PROXIMA L DIAGNOSTIC Recall Family history of colonic polyps Scheduled Referrals Name Type Priority Associated Diagnoses Orde r Schedule PAIN MEDICINE REFERRAL OP Referral Within 10 days (routine) Osteoarthritis of lumbar spine, unspecified spinal osteoarthritis complication status Ordered: 11/27/2023 Health Maintenance Due Date Last Done Comments HIV Screening 1985 Hepatitis C Screening 02/13/1988 Hepatitis B Vaccine (1 of 3 - 19+ 3-dose series) 1989 Cologuard 2015 Fecal Occult Blood Test 2015 Sigmoidoscopy 2015 Zoster Vaccines (1 of 2) 02/13/2020 Depression Screening 09/16/2020 09/17/2019 Mammogram 09/20/2023 09/19/2022, 08/28, 02/07/2020, Additional history exists COVID-19 Vaccine (2023- season) 2023 05/03/2020, 04/05/2020 Influenza Vaccine (FLU [...] this encounter Medical Devices Implanted Type Area Mathematics Academic Chair Device Identifier Shelf Expiration Date Model / Serial / Lot Dbx 1cc [id number] - [id number] - [id number] Implanted:Qty : 1 on 03/03/2022 by Marilyn Aquino MD at OR [facility] [place] N/A: Spine Cervical MUSCULOSKELETAL TRANSPLANT FND [id number] 10/15/2023 [id number] / [id number] / [id number] Spacer Avs [id number] - [id number] Implanted:Qty : 2 on 03/03/2022 by Marilyn Aquino MD at OR [facility] [place] N/A: Spine Cervical SHARITA : SPINE [id number] / / Plate Cerv Cons 2 Level 34mm - [id number] Implanted:Qty : 1 on 03/03/2022 by Marilyn Aquino MD at OR [facility] [place] N/A: Spine Cervical SHARITA : SPINE [id number] / / Screw Olivia 4x14mm Self Ca - [id number] Implanted:Qty : 6 on 03/03/2022 by Marilyn Aquino MD at OR [facility] [place] N/A: Spine Cervical SHARITA : SPINE [id number] / / Lens [id number] 12.5mm+23.00 - [id number] - [id number] Implanted:Qty : 1 on 09/01/2022 by Manuel Saba MD at OR [facility] Right: Eye BAUSCH & LOMB 01/26/2025 [id number] / [id number] / [id number] documented as of this encounter Procedures Procedure Name Priority Date/Time Associated Diagnosis Comments POINT OF CARE US MAJOR JOINT INJECTION, ORTHO Routine 11/27/2023 5:01 PM EDT Hip pain, left documented in this encounter Results * POINT OF CARE US MAJOR JOINT INJECTION, ORTHO (11/27/2023 5:01 PM EDT) Anatomical Region Laterality Modality Musculoskeletal Radiographic Keena ging 11/27/2023 5:01 PM EDT Narrative 11/27/2023 9:32 AM EDT Patient Name: MIGDALIA LOMAS : 1970 (53y) Female Performing Provider: Darryl Og (digitally signed Nov 27, 2023 09:32 EDT) Attending: Darryl Og (digitally signed Nov 27, 2023 09:32 EDT) [Impression] : PROCEDURE NOTE: TROCHANTERIC BURSA INJECTION Laterality: Left Time out: Prior to injection, a time out was called to confirm the administration of appropriate medicine, patient name, procedure and confirm to the best of our ability and knowledge the presence of any necessary risks and benefits. Patient verbalized understanding. Ultrasound utilized to guide injection. During the procedure, the needle was visualized in plane and was advanced with continuous ultrasound guidance to the appropriate anatomical landmark as described in the procedure. Ultrasound required due to location of joint being too deep to accurately inject without ultrasound guidance Sterile technique applied using gloves, chlorhexadine, and alcohol swabs. Ethyl chloride spray for local anesthetic. Trochanteric bursa region injected with lateral approach using 3.5 inch, 22 gauge needle. Injected with 1 mL Lidocaine 1% - 1 mL Triamcinolone Acetonide 40 mg/mL >> inject 2 mL. Patient tolerated procedure with no significant bleeding or adverse reaction. Patient instructed to call or return to clinic for fever, warmth, unusual redness at injection site for potential infection. Patient also advised regarding post-procedural pain. Procedure Note Darryl Og MD - 11/27/2023 Patient Name: MIGDALIA LOMAS : 1970 (53y) Female Performing Provider: Darryl Og (digitally signed Nov 27, 2023 09:32EDT) Attending: Darryl Og (digitally signed Nov 27, 2023 09:32 EDT) [Impression] : PROCEDURE NOTE: TROCHANTERIC BURSA INJECTION Laterality: Left Time out: Prior to injection, a time out was called to confirm the administration ofappropriate medicine, patient name, procedure and confirm to the best ofour ability and knowledge the presence of any necessary risks andbenefits. Patient verbalized understanding. Ultrasound utilized to guide injection. During the procedure, the needle was visualized in plane and was advancedwith continuous ultrasound guidance to the appropriate anatomical landmarkas described in the procedure. Ultrasound required due to location of joint being too deep to accuratelyinject without ultrasound guidance Sterile technique applied using gloves, chlorhexadine, and alcoholswabs. Ethyl chloride spray for local anesthetic. Trochanteric bursa region injected with lateral approach using 3.5 inch,22 gauge needle. Injected with 1 mL Lidocaine 1% - 1 mL TriamcinoloneAcetonide 40 mg/mL >> inject 2 mL. Patient tolerated procedure with no significant bleeding or adversereaction. Patient instructed to call or return to clinic for fever, warmth, unusualredness at injection site for potential infection. Patient also advisedregarding post- procedural pain. 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
--- OUTSIDE RECORDS SUMMARY | 2024-01-06 17:43 | External Medical Summary | Summary of Care ---
Author Name Unknown Organization [facility] Address [address] [facility] [place] [address] Phone [phone] Care Team Providers Care Laminating Machine Tender Name Role Phone Juan Hernandez MD Primary Care Provider + Reason for Visit * Reason Onset Date Comments Scheduling 07/18/2023 Encounter Details Date Type Department Care Team (Late st Contact Info) Description 07/18/2023 Telephone Nutrition & Weight Management, [facility] [address] [place] [address] Jennifer Negro PA-C [address] [place] [address] Scheduling Allergies Active Allergy Reactions Criticality Noted Date Comments Topiramate Cough 04/28/2017 documented as of this encounter (statuses as of 07/27/2023) Medications Medication Sig Dispensed Refills Start Date [...] THE MORNING 90 Capsule 06/13/2023 4 Active Semaglutide(0.25 or 0.5MG/DOS) 2 MG/3ML Solution Pen-injector (Ozempic) Inject 0.5 mg under the skin once a week. 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 Increased risk for Familial Hypercholesterolemia.Proband RQ [id number]. Proband report date 10/09/2020 (MM/DD/YYYY). 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 Had UDS done 03/26/12 c/w prescribed adderall - compliant w/ med use agreement. Lumbar disc disease documented as of this encounter (statuses as of 07/27/2023) Resolved Problems Problem Noted Date Diagnosed Date Resolved Date Acne 12/03/2012 04/12/2018 Back pain 09/04/2017 Hip pain 09/04/2017 documented as of this encounter (statuses as of 07/27/2023) Immunizations Name Administration Dates Next Due COVID-19 [...] Influenza, Split, I IV3, With Preserve, Inj 11/28/2019,12/07/2016,12/02/2015,2014,12/10/2013,11/29/2012,11/29/2011,0 11/25/2010,11/23/2009 TDAP (age 10 and older)(Boostrix) [...] encounter Miscellaneous Notes * Telephone Encounter - Kenzie Randall OSA - 07/27/2023 2:16 PM EDT Left message for patient to return call to schedule. Letter Sent. Patient did not return call and schedule. Second message left for patient. 07/27/2023 2:16 PM * Telephone Encounter - Kenzie Randall OSA - 07/18/2023 3:51 PM EDT Patient had a Video Visit today. Follow up instructions: 6 months with me Left message for patient to return call to schedule. 07/18/2023 3:51 PM documented in this encounter Plan of Treatment Upcoming Encounters Date Type Department Care Team (Late st Contact Info) Description 08/18/2023 9:30 AM EDT Office Visit Orthopaedics [facility] [place] [address] [place] [id number] Aquilino Robledo MD [address] [place] [address] 09/25/2023 7:30 AM EDT Imaging Radiology [facility] [address] [facility] [place] [address] 10/20/2023 8:00 AM EDT Office Visit Ophthalmology, [facility] [address] [facility] [place] [address] Charan Churchill MD [address] [place] [address] 05/29/2024 8:20 AM EDT Office Visit Family Practice [facility] [address] [place] [address] Juan Hernandez MD [address] [place] [address] Scheduled Procedures Name Priority Associated Diagnoses Date/Ti [...] Cancer Screening 02/04/2022 Pap Smear 02/04/2022 02/04/2019, 1210/2018, 04/09/2015, Additional history exists COVID-19 Vaccine (2022- season) 2022 05/03/2020, 04/05/2020 Mammogram 09/20/2023 09/19/2022, [...] this encounter Medical Devices Implanted Type Area Travel Freight And Passenger Agent Device Identifier Shelf Expiration Date Model / Serial / Lot Dbx 1cc [id number] - [id number] - [id number] Implanted:Qty : 1 on 03/03/2022 by Marilyn Aquino MD [place] [facility] [place]/A: Spine Cervical MUSCULOSKELETAL TRANSPLANT FND [id number] 10/15/2023 [id number] / [id number] / [id number] Spacer Avs [id number] - [id number] Implanted:Qty : 2 on 03/03/2022 by Marilyn Aquino MD [place] [facility] [place]/A: Spine Cervical SHARITA : SPINE [id number] / / Plate Cerv Cons 2 Level 34mm - [id number] Implanted:Qty : 1 on 03/03/2022 by Marilyn Aquino MD at [place] [facility] [place] N/A: Spine Cervical SHARITA : SPINE [id number] / / Screw Olivia 4x14mm Self Ca - [id number] Implanted:Qty : 6 on 03/03/2022 by Marilyn Aquino MD at [place] [facility] [place]/A: Spine Cervical SHARITA : SPINE [id number] / / Lens [id number] 12.5mm+23.00 - [id number] - [id number] Implanted:Qty : 1 on 09/01/2022 by Manuel Saba MD at OR [facility] Right: Eye BAUSCH & LOMB 01/26/2025 [id number] / [id number] / [id number] documented as of this encounter Advance Directives [...] Discussed due to patient's condition Care Teams Laminating Machine Tender Relationship Specialty Start Date End Date Juan Hernandez MD [address] [place] [address] PCP - General Family Medicine 07/01/15 documented as of this encounter
--- OUTSIDE RECORDS SUMMARY | 2024-01-06 17:43 | External Medical Summary | Summary of Care ---
Author Name Unknown Organization [facility] Address [address] [facility] [place] [place] [address] Phone [phone] Care Team Providers Care Engineering Design Supervisor Name Role Phone Juan Cancino MD Primary Care Provider + Reason for Visit * Reason Comments Medication Refill Encounter Details Date Type Department Care Team (Late st Contact Info) Description 12/01/2023 Refill Family Practice [facility] [place] [address] Juan Cancino MD [address] [place] [address] Gastroesophageal reflux disease without esophagitis Allergies Active Allergy Reactions Criticality Noted Date Comments Topiramate Cough 04/28/2017 documented as of this encounter (statuses as of 12/02/2023) Medications Medication Sig Dispensed Refills Start Date [...] CHEW 90 Tablet 1 12/02/2023 5 Active Pantoprazole Sodium 40 MG Oral Tablet Delayed Release (Protonix)Indication s:Gastroesophageal reflux disease without esophagitis TAKE ONE TABLET BY MOUTH EVERY DAY THIRTY MINUTES BEFORE THE FIRST MEAL OF THE DAY. 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 Increased risk for Familial Hypercholesterolemia.Proband RQ [id number]. Proband report date 10/09/2020 (MM/DD/YYYY). 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 Had UDS done 03/26/12 c/w prescribed adderall - compliant w/ med use agreement. Lumbar disc disease documented as of this encounter (statuses as of 12/02/2023) Resolved Problems Problem Noted Date Diagnosed Date Resolved Date Acne 12/03/2012 04/12/2018 Back pain 09/04/2017 Hip pain 09/04/2017 documented as of this encounter (statuses as of 12/02/2023) Immunizations Name Administration Dates Next Due COVID-19 mRNA, LNP-s, No Pre serve, 2-Dose Series (OvermediaCast) 05/03/2020,04/05/2020 DTaP Dipth/Tet/Acell Pertussis (Infanrix), Peds 06/13/1974,06/10/1971,1970,1970 [...] encounter Miscellaneous Notes * Telephone Encounter - Sonya Mullen RPh - 12/02/2023 6:16 AM EDTSigned Prescriptions: Disp Refills Pantoprazole Sodium 40 MG Oral Tablet Rianna*90 Tab*1 Sig: TAKE ONE TABLET BY MOUTH EVERY DAY THIRTY MINUTES BEFORE THE FIRST MEAL OF THE DAY. DO NOT CRUSH, SPLIT, OR CHEWAuthorizing Provider: JUAN CANCINO User: SONYA MULLEN documented in this encounter Plan of Treatment Upcoming Encounters Date Type Department Care Team (Late st Contact Info) Description 2024 10:00 AM EST Office Visit Interventional Pain Center, [facility] [address] [place] [address] Cecilia Laguna PA-C [address] [place] [address] 05/29/2024 8:20 AM EDT Office Visit Family Practice [facility] [address] [place] [address] Juan Cancino MD [address] [place] [address] 07/26/2024 2:20 PM EDT Office Visit [facility] Disorders [facility] [address] [place] [id number] Haven Terry DO [address] [place] [address] 07/31/2024 7:45 AM EDT Imaging Radiology [facility] [place] [address] [place] [address] Scheduled Procedures Name Priority Associated Diagnoses Date/Ti [...] Depression Screening 09/16/2020 09/17/2019 Mammogram 09/20/2023 09/19/2022, 0705/2022, 02/07/2020, Additional history exists COVID-19 Vaccine ( [...] this encounter Medical Devices Implanted Type Area Orthotic Practitioner Device Identifier Shelf Expiration Date Model / Serial / Lot Dbx 1cc 299559 - [id number] - [id number] Implanted:Qty : 1 on 03/03/2022 by Marilyn Aquino MD at OR [facility] [place] N/A: Spine Cervical MUSCULOSKELETAL TRANSPLANT FND [id number] 10/15/2023 [id number] / [id number] / [id number] Spacer Avs [id number] - [id number] Implanted:Qty : 2 on 03/03/2022 by Marilyn Aquino MD at OR [facility] [place] N/A: Spine Cervical SHARITA : SPINE [id number] / / Plate Cerv Cons 2 Level 34mm - [id number] Implanted:Qty : 1 on 03/03/2022 by Marilyn Aquino MD at OR [facility] [place] N/A: Spine Cervical SHARITA : SPINE [id number] / / Screw Olivia 4x14mm Self Ca - [id number] Implanted:Qty : 6 on 03/03/2022 by Marilyn Aquino MD at OR [facility] [place] N/A: Spine Cervical SHARITA : SPINE [id number] A / / Lens [id number] 12.5mm+23.00 - [id number] - [id number] Implanted:Qty : 1 on 09/01/2022 by Manuel Saba MD at OR [facility] Right: Eye BAUSCH & LOMB 01/26/2025 [id number] / [id number] / [id number] documented as of this encounter Visit Diagnoses Diagnosis Gastroesophageal reflux disease without esophagitis Esophageal reflux documented in this encounter Advance Directives * [...] Discussed due to patient's condition Care Teams Engineering Design Supervisor Relationship Specialty Start Date End Date Juan Cancino MD [address] [place] [address] PCP - General Family Medicine 07/01/15 documented as of this encounter
--- OUTSIDE RECORDS SUMMARY | 2024-01-06 17:43 | External Medical Summary | Summary of Care ---
Author Name Unknown Organization [facility] Address [address] [facility] [place] [address] Phone [phone] Care Team Providers Care Test Deck Supervisor Name Role Phone Juan Hernandez MD Primary Care Provider + Reason for Visit * Reason Comments Follow Up 1 year follow up Encounter Details Date Type Department Care Team (Late st Contact Info) Description 10/20/2023 8:00 AM EDT Office Visit Ophthalmology, [facility] [address] [place] [address] Charan Churchill MD [address] [...] Semaglutide(0.25 or 0.5MG/DOS) 2 MG/3ML Solution Pen-injector (OzVet Brother Lawn Serviceic) Inject 0.5 mg under the skin once [...] Overview: pathogenic LDLR gene variant (c.798T>A , p.Xys427Egy) detected via IPWireless. Increased risk for Familial Hypercholesterolemia.Proband RQ [id number]. Proband report date 10/09/2020 (MM/DD/YYYY). 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 [...] little worse, like it's not clear but executive cyber leader toldher there was no change" Are you diabetic? No Do you drive? yes OCT image(s) of both eyes acquired and filed/scanned into chart. documented in this encounter Plan of Treatment Upcoming Encounters Date Type Department Care Team (Late st Contact Info) Description 11/27/2023 8:00 AM EDT Office Visit Orthopaedics [facility] [address] [facility] [place] [address] Darryl Og MD [address] [place] [address] 05/29/2024 8:20 AM EDT Office Visit Family Practice [facility] [address] [facility] [place] [address] Juan Hernandez MD [address] [facility] [place] [address] 07/31/2024 7:45 AM EDT Imaging Radiology [facility] 1st Floor, [place] [address] [facility] [place] [address] 10/18/2024 8:15 AM EDT Office Visit Ophthalmology, [address] [place] [address] Charan Churchill MD [address] [place] [address] Scheduled Orders Name Type Priority Associated Diagnoses [...] 02/13/2020 Depression Screening 09/16/2020 09/17/2019 COVID-19 Vaccine (2022- season) 2022 05/03/2020, 04/05/2020 [...] this encounter Medical Devices Implanted Type Area Supervisor Cd Area Device Identifier Shelf Expiration Date Model / Serial / Lot Dbx c [id number] - [id number] - [id number] Implanted:Qty : 1 on 03/03/2022 by Marilyn Aquino MD at [place] [facility] [place] N/A: Spine Cervical MUSCULOSKELETAL TRANSPLANT FND [id number] 10/15/2023 [id number] / [id number] / [id number] Spacer Avs [id number] - [id number] Implanted:Qty : 2 on 03/03/2022 by Marilyn Aquino MD at OR [facility] [place] N/A: Spine Cervical SHARITA : SPINE [id number] / / Plate Cerv Cons 2 Level 34mm - [id number] Implanted:Qty : 1 on 03/03/2022 by Marilyn Aquino MD at OR [facility] [place] N/A: Spine Cervical SHARITA : SPINE [id number] / / Screw Olivia 4x14mm Self Ca - [id number] Implanted:Qty : 6 on 03/03/2022 by Marilyn Aquino MD at OR [facility] [place] N/A: Spine Cervical SHARITA : SPINE [id number] A / / Lens [id number] 12.5mm+23.00 - [id number] - [id number] Implanted:Qty : 1 on 09/01/2022 by Manuel Saba MD at OR [facility] Right: Eye BAUSCH & LOMB 01/26/2025 [id number] / [id number] / [id number] documented as of this encounter Visit Diagnoses [...] Discussed due to patient's condition Care Teams Test Deck Supervisor Relationship Specialty Start Date End Date Juan Hernandez MD [address] [place] [address] PCP - General Family Medicine 07/01/15 documented as of this encounter
--- OUTSIDE RECORDS SUMMARY | 2024-01-06 17:43 | External Medical Summary | Summary of Care ---
Author Name Unknown Organization [facility] Address [address] [place] [address] Phone [phone] Care Team Providers Care Nnps Name Role Phone Juan Hernandez MD Primary Care Provider + Reason for Referral * Evaluate & Treat - Unlimited Visits (Within 10 days (routine)) - Authorized Specialty Diagnoses / Procedures Referred By Marysol pulido Referred To Contact Pain Management / Pain Medicine Diagnoses Osteoarthritis of lumbar spine, unspecified spinal osteoarthritis complication status Darryl Og MD [address] [place] [address] Referral ID Status Reason Start Date Expiration Date Visits Requested Visits Authorized [id number] Authorized Specialty Services Required 11/27/2023 999 999 Question Answer Referral Priority Within 10 days (routine) Where should this appointment be scheduled? [facility] Reason for referral? Interventional Pain Management - [...] pain if not done previously. Fax No. [facility] [phone] or contact senior front end web developer [phone] Fax No. [facility] [phone] or contact senior front end web developer [phone] Fax No. [facility] [phone] or contact senior front end web developer [phone] Reason for Visit * Reason Comments NEW PATIENT B/L Hip Pain * Evaluate & Treat - Unlimited Visits (Within 10 days (routine)) - Authorized Specialty Diagnoses / Procedures Referred By Marysol pulido Referred To Contact Orthopaedic Surgery / Orthopedics Diagnoses Bilateral hip pain Juan Hernandez MD [address] [place] [place] [address] Referral ID Status Reason Start Date Expiration Date Visits Requested Visits Authorized [id number] Authorized Specialty Services Required 10/19/2023 999 999 Encounter Details Date Type Department Care Team (Latest Contact Info) Description 11/27/2023 8:00 AM EDT Office Visit Orthopaedics [facility] [address] [place] [address] Darryl Og MD [address] [place] 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 Increased risk for Familial Hypercholesterolemia.Proband RQ 1425235-0. Proband report date 10/09/2020 (MM/DD/YYYY). 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 Consult requested by Juan Hernandez MD. Migdalia [...] pain relief Pt stated she went to [facility] and had Bursitis r/o within the last [...] of Onset Diabetes Mother they live near [address] COVID Heart Disorder Mother 60 3v CABG. [place] s/p gastric bypass. 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 Occupation: [...] was performed on 10/01/[address] Hagan ([facility] radiology [facility]) with fluoro guidance. It was a left [...] [facility] at [...] Og MD Primary Care Sports Medicine Orthopaedics [facility] [address] [facility] [place] [address] documented in this encounter Nursing Notes * [...] pain relief Pt stated she went to [facility] and had Bursitis r/o within the last [...] 8:20 AM EDT Office Visit Family Practice [facility] [address] [place] [address] Juan Hernandez MD [address] [place] [address] 07/31/2024 7:45 AM EDT Imaging Radiology [facility] 1st [facility] [address] [place] [address] Pending Results Name Type Priority Associated Diagnoses [...] this encounter Medical Devices Implanted Type Area Industrial Registered Nurse Device Identifier Shelf Expiration Date Model / Serial / Lot Dbx 1cc 144758 - [id number] - [id number] Implanted:Qty : 1 on 03/03/2022 by Marilyn Aquino [place] [facility] [place]: Spine Cervical MUSCULOSKELETAL TRANSPLANT FND [id number] 10/15/2023 [id number] / [id number] / [id number] Spacer Avs [id number] - [id number] Implanted:Qty : 2 on 03/03/2022 by Marilyn Aquino [place] [facility]A: Spine Cervical SHARITA : SPINE [id number] / / Plate Cerv Cons 2 Level 34mm - [id number] Implanted:Qty : 1 on 03/03/2022 by Marilyn Aquino MD [place] [facility]/A: Spine Cervical SHARITA : SPINE [id number] / / Screw Olivia 4x14mm Self Ca - [id number] Implanted:Qty : 6 on 03/03/2022 by Marilyn Aquino MD [place] [facility]/A: Spine Cervical SHARITA : SPINE [id number] A / / Lens [id number] 12.5mm+23.00 - [id number] - [id number] Implanted:Qty : 1 on 09/01/2022 by Manuel Saba MD at OR [facility] Right: Eye BAUSCH & LOMB 01/26/2025 [id number] / [id number] / [id number] documented as of this encounter Procedures Procedure [...] 11/27/2023 9:32 AM EDT Patient Name: MIGDALIA LOMSA : 1970 (53y) Female Performing Provider: Darryl [...] region and thigh documented in this encounter Administered Medications Inactive Administered Medications - up to 3 most recent administrations Medication Order MAR Action Action Date Dose Rate Site lidocaine 1% 1 mL - triamcinolone acetonide 40 mg/mL 1 mL inj 2 mL 2 mL, Injection, ONCE, On Mon11/27/23 at 0945, For 1 dose, Lidocaine 1% 1mL Triamcinolone Acetonide 40 mg/mL 1 mL (Final concentration = 20 mg/mL) REFRIGERATE and SHAKE WELL Given 11/27/2023 10:15 AM EDT 2 mL Hip Left documented in this encounter Advance Directives * [...] Discussed due to patient's condition Care Teams Nnps Relationship Specialty Start Date End Date Juan Hernandez MD [address] [place] [address] PCP - General Family Medicine 07/01/15 documented as of this encounter
--- OUTSIDE RECORDS SUMMARY | 2024-01-06 17:43 | External Medical Summary | Summary of Care ---
Author Name Unknown Organization [facility] Address [address] [place] [facility] [place] [address] Phone [phone] Care Team Providers Care Dental Hygienist Mobile Coordinator Name Role Phone Juan Hernandez MD Primary Care Provider + Reason for Visit * Reason Comments Medication Refill Encounter Details Date Type Department Care Team (Late st Contact Info) Description 09/15/2023 Refill Pulmonary Medicine, [facility] [address] [place] [address] Anel Terry, [address] [place] [address] Hypersomnia, periodic Allergies Active Allergy Reactions Criticality Noted Date Comments Topiramate Cough 04/28/2017 documented as of this encounter (statuses as of 09/19/2023) Medications Medication Sig Dispensed Refills Start Date [...] Semaglutide(0.25 or 0.5MG/DOS) 2 MG/3ML Solution Pen-injector ([employer]) Inject 0.5 mg under the skin once [...] THE MORNING 90 Capsule 09/19/2023 5 Active Amphetamine-Dextroam phetamine 15 MG Oral TabletIndications:Hy persomnia, periodic TAKE ONE TABLET BY MOUTH TWICE A DAY, EVERY MORNING AND AT NOON 180 Tablet 06/13/2023 4 Discontinu ed(Refill) Amphetamine-Dextroam phet ER 30 MG Oral Capsule Extended Release 24 Hour (Adderall XR)Indications:Hyper somnia, periodic TAKE ONE CAPSULE BY MOUTH EVERY DAY IN THE MORNING 90 Capsule 06/13/2023 4 Discontinu ed(Refill) documented as of this encounter (statuses as of 09/19/2023) Active Problems Problem Noted Date Diagnosed Date S/P cervical spinal fusion 03/04/2022 Overview: 03/21 Cervical spinal stenosis 03/03/2022 Cervical radiculopathy 03/03/2022 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 Increased risk for Familial Hypercholesterolemia.Proband RQ [id number]. Proband report date 10/09/2020 (MM/DD/YYYY). Please click [...] Overview: For ADD meds - OK to vegetable picker refills and be seen for med check every 6 mos w/ PCP. Had UDS done 03/26/12 c/w prescribed adderall - compliant w/ med use agreement. Lumbar disc disease documented as of this encounter (statuses as of 09/19/2023) Resolved Problems Problem Noted Date Diagnosed Date Resolved Date Acne 12/03/2012 04/12/2018 Back pain 09/04/2017 Hip pain 09/04/2017 documented as of this encounter (statuses as of 09/19/2023) Immunizations Name Administration Dates Next Due COVID-19 [...] Miscellaneous Notes * Telephone Encounter - Anel Terry, - 09/19/2023 7:44 AM EDTSigned Prescriptions: Disp Refills Amphetamine-Dextroamphetamine 15 MG Oral T*180 Ta*0 Sig: TAKE ONE TABLET BY MOUTH TWICE A DAY, EVERY MORNING AND AT NOON Authorizing Provider: ANEL TERRY Amphetamine-Dextroamphet ER 30 MG Oral Cap*90 Cap*0 Sig: TAKE ONE CAPSULE BY MOUTH EVERY DAY IN THE MORNING Authorizing Provider: ANEL TERRY * Telephone Encounter - Anel Terry DO - 09/19/2023 7:44 AM EDTSigned Prescriptions: Disp Refills Amphetamine-Dextroamphetamine 15 MG Oral T*180 Ta*0 Sig: TAKE ONE TABLET BY MOUTH TWICE A DAY, EVERY MORNING AND AT NOON Authorizing Provider: ANEL TERRY Amphetamine-Dextroamphet ER 30 MG Oral Cap*90 Cap*0 Sig: TAKE ONE CAPSULE BY MOUTH EVERY DAY IN THE MORNING Authorizing Provider: ANEL TERRY * Telephone Encounter - Yuliya Cooper LPN - 09/18/2023 10:21 AM EDTPending Prescriptions: Disp Refills Amphetamine-Dextroamphetamine 15 MG Oral T*180 Ta*0 Sig: TAKE ONE TABLET BY MOUTH TWICE A DAY, EVERY MORNING AND AT NOON Amphetamine-Dextroamphet ER 30 MG Oral Cap*90 Cap*0 Sig: TAKE ONE CAPSULE BY MOUTH EVERY DAY IN THE MORNING documented in this encounter Plan of Treatment Upcoming Encounters Date Type Department Care Team (Late st Contact Info) Description 09/28/2023 7:45 AM EDT Imaging Radiology [address] [place] [address] 10/20/2023 8:00 AM EDT Office Visit Ophthalmology, [facility] [address] [place] [address] Charan Churchill MD [address] [place] [address] 05/29/2024 8:20 AM EDT Office Visit Family Practice [facility] [address] [place] [address] Juan Hernandez MD [address] [place] [address] Scheduled Procedures Name Priority Associated Diagnoses Date/Ti [...] this encounter Medical Devices Implanted Type Area Social Services Director Device Identifier Shelf Expiration Date Model / Serial / Lot Dbx 1cc [id number] - [id number] - [id number] Implanted:Qty : 1 on 03/03/2022 by Marilyn Aquino MD at OR [facility] [place] N/A: Spine Cervical MUSCULOSKELETAL TRANSPLANT FND [id number] 10/15/2023 [id number] / [id number] / [id number] Spacer Avs [id number] - [id number] Implanted:Qty : 2 on 03/03/2022 by Marilyn Aquino MD at OR [facility] [place] N/A: Spine Cervical SHARITA : SPINE [id number] / / Plate Cerv Cons 2 Level 34mm - [id number] Implanted:Qty : 1 on 03/03/2022 by Marilyn Aquino MD at OR [facility] [place] N/A: Spine Cervical SHARITA : SPINE [id number] / / Screw Olivia 4x14mm Self Ca - [id number] Implanted:Qty : 6 on 03/03/2022 by Marilyn Aquino MD at OR [facility] [place] N/A: Spine Cervical SHARITA : SPINE [id number] / / Lens [id number] 12.5mm+23.00 - [id number] - [id number] Implanted:Qty : 1 on 09/01/2022 by Manuel Saba MD at [facility] Right: Eye BAUSCH & LOMB 01/26/2025 [id number] / [id number] / [id number] documented as of this encounter Visit Diagnoses [...] Discussed due to patient's condition Care Teams Dental Hygienist Mobile Coordinator Relationship Specialty Start Date End Date Juan Hernandez MD [address] [place] [address] PCP - General Family Medicine 07/01/15 documented as of this encounter
--- OUTSIDE RECORDS SUMMARY | 2024-01-06 17:43 | External Medical Summary | Summary of Care ---
Author Name Unknown Organization [facility] Address [address] [place] [address] Phone [phone] Care Team Providers Care Lining Inserter Name Role Phone Juan Hernandez MD Primary Care Provider + Reason for Referral * Evaluate & Treat - Unlimited Visits (Within 10 days (routine)) - Authorized Specialty Diagnoses / Procedures Referred By Marysol pulido Referred To Contact Pain Management / Pain Medicine Diagnoses Osteoarthritis of lumbar spine, unspecified spinal osteoarthritis complication status Darryl Og MD [address] [place] [address] Referral ID Status Reason Start Date Expiration Date Visits Requested Visits Authorized [id number] Authorized Specialty Services Required 11/27/2023 999 999 Question Answer Referral Priority Within 10 days (routine) Where should this appointment be scheduled? [facility] Reason for referral? Interventional Pain Management - (Injection) What condition is the patient being referred for? Lumbar Radiculopathy What is the preferred location to have this test performed? [facility] Comments Patient Name: Migdalia Madden Date of : 1970 Department Phone Number: [...] pain if not done previously. Fax No. [facility] [phone] or contact hotel front desk clerk [phone] Fax No. [facility] [phone] or contact hotel front desk clerk [phone] Fax No. [facility] [phone] or contact hotel front desk clerk [phone] Reason for Visit * Reason Comments NEW PATIENT B/L Hip Pain * Evaluate & Treat - Unlimited Visits (Within 10 days (routine)) - Authorized Specialty Diagnoses / Procedures Referred By Marysol pulido Referred To Contact Orthopaedic Surgery / Orthopedics Diagnoses Bilateral hip pain Juan Hernandez MD [address] [facility] [place] [address] Referral ID Status Reason Start Date Expiration Date Visits Requested Visits Authorized [id number] Authorized Specialty Services Required 10/19/2023 999 999 Encounter Details Date Type Department Care Team (Latest Contact Info) Description 11/27/2023 8:00 AM EDT Office Visit Orthopaedics [facility] [address] [place] [address] Darryl Og MD [address] [facility] [place] [address] Chronic bilateral low back pain with [...] Semaglutide(0.25 or 0.5MG/DOS) 2 MG/3ML Solution Pen-injector ([employer]) Inject 0.5 mg under the skin once [...] Overview: pathogenic LDLR gene variant (c.798T>A , p.[id number]) detected via [employer]. Increased risk for Familial Hypercholesterolemia.Proband RQ [id number]. Proband report date 10/09/2020 (MM/DD/YYYY). Please click [...] For ADD meds - OK to picker refills and be seen for med [...] 11/27/2023 8:31 AM EDT Migdalia Rodriguez Maryanne [id number] Migdaliahollis Clarkzabeth Maryanne is a 53 year old female who presents for consultation for bilateralhip injury/pain to [facility] Sports Medicine [facility]. Consult requested by Juan Hernandez MD. Migdalia Madden is here unaccompanied Quality: reviewed and agree [...] pain relief Pt stated she went to [place] and had Bursitis r/o within the last [...] of Onset Diabetes Mother they live near [address] COVID Heart Disorder Mother 60 3v CABG. [place] s/p gastric bypass. 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 Occupation: [...] was performed on 10/01/[address] Hagan [place] [place] [facility] with fluoro guidance. It was a left [...] [facility] at [...] Og MD Primary Care Sports Medicine Orthopaedics [facility] [address] [facility] [place] [address] documented in this encounter Nursing Notes * [...] pain relief Pt stated she went to [place] and had Bursitis r/o within the last [...] 8:20 AM EDT Office Visit Family Practice [facility] [address] [place] [address] Juan Hernandez MD [address] [place] [address] 07/31/2024 7:45 AM EDT Imaging Radiology [facility] [address] [place] [address] Pending Results Name Type Priority Associated Diagnoses Date /Time XR L SPINE COMPLETE Medical Imaging Routine Chronic bilateral low back pain with bilateral sciatica 11/27/2023 8:49 AM EDT Scheduled Orders Name Type Priority Associated Diagnoses Orde r Schedule POINT OF CARE US MAJOR JOINT INJECTION, ORTHO Medical Imaging Routine Hip pain, left Ordered: 11/27/2023 Scheduled Procedures Name Priority Associated Diagnoses Date/Ti [...] this encounter Medical Devices Implanted Type Area Beater Operator Device Identifier Shelf Expiration Date Model / Serial / Lot Dbx 1cc [id number] - [id number] - [id number] Implanted:Qty : 1 on 03/03/2022 by Marilyn Aquino MD at OR [facility] [place] N/A: Spine Cervical MUSCULOSKELETAL TRANSPLANT FND [id number] 10/15/2023 [id number] / [id number] / [id number] Spacer Avs [id number] - [id number] Implanted:Qty : 2 on 03/03/2022 by Marilyn Aquino MD at OR [facility] [place] N/A: Spine Cervical SHARITA : SPINE [id number] / / Plate Cerv Cons 2 Level 34mm - [id number] Implanted:Qty : 1 on 03/03/2022 by Marilyn Aquino MD at OR [facility] [place] N/A: Spine Cervical SHARITA : SPINE [id number] / / Screw Olivia 4x14mm Self Ca - [id number] Implanted:Qty : 6 on 03/03/2022 by Marilyn Aquino MD at OR [facility] [place] N/A: Spine Cervical SHARITA : SPINE [id number] / / Lens [id number] 12.5mm+23.00 - [id number] - [id number] Implanted:Qty : 1 on 09/01/2022 by Manuel Saba MD at OR [facility] Right: Eye BAUSCH & LOMB 01/26/2025 [id number] / [id number] / [id number] documented as of this encounter Visit Diagnoses Diagnosis Chronic bilateral [...] Discussed due to patient's condition Care Teams Lining Inserter Relationship Specialty Start Date End Date Juan Hernandez MD [address] [place] [address] PCP - General Family Medicine 07/01/15 documented as of this encounter
--- OUTSIDE RECORDS SUMMARY | 2024-01-06 17:43 | External Medical Summary | Summary of Care ---
Author Name Unknown Organization [facility] Address [address] [facility] [place] [address] Phone [phone] Care Team Providers Care Dermatopathologist Name Role Phone Juan Hernandez MD Primary Care Provider + Reason for Visit * Reason Onset Date Comments Scheduling 07/18/2023 Encounter Details Date Type Department Care Team (Late st Contact Info) Description 07/18/2023 Telephone Nutrition & Weight Management, [facility] [address] [place] [address] Jennifer Negro PA-C [address] [place] [address] Scheduling Allergies Active Allergy Reactions Criticality Noted [...] BEDTIME 90 Tablet 1 12/10/2022 4 Active Atorvastatin Calcium 80 MG Oral Tablet (Lipitor)Indications: Family history of premature CAD,Dyslipidemia, goal LDL below 70 TAKE ONE TABLET BY MOUTH EVERY day 90 Tablet 05/02/2023 Active Armodafinil 250 MG Oral TabletIndications:Idi opathic [...] a week. 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 Increased risk for Familial Hypercholesterolemia.Proband RQ 9133612-9. Proband report date 10/09/2020 (MM/DD/YYYY). Please click [...] Overview: For ADD meds - OK to cook pickled meat refills and be seen for med check [...] 08/18/2023 9:30 AM EDT Office Visit Orthopaedics Stephan Baron [address] [place] [address] Aquilino Robledo MD [address] [place] [address] 09/25/2023 7:30 AM EDT Imaging Radiology [facility] [address] [facility] [place] [address] 10/20/2023 8:00 AM EDT Office Visit Ophthalmology, [facility] [address] [facility] [place] [address] Charan Churchill MD [address] [address] 05/29/2024 8:20 AM EDT Office Visit Family Practice [facility] [address] [facility] [place] [address] Juan Hernandez MD [address] [facility] [place] [address] Scheduled Procedures Name Priority Associated Diagnoses Date/Ti [...] this encounter Medical Devices Implanted Type Area Electric Meter Tester Device Identifier Shelf Expiration Date Model / Serial / Lot Dbx 1cc 095576 - [id number] - [id number] Implanted:Qty : 1 on 03/03/2022 by Marilyn Aquino MD [place] [facility] [place]A: Spine Cervical MUSCULOSKELETAL TRANSPLANT FND [id number] 10/15/2023 [id number] / [id number] / [id number] Spacer Avs [id number] - [id number] Implanted:Qty : 2 on 03/03/2022 by Marilyn Aquino MD [place] [facility] [place]/A: Spine Cervical SHARITA : SPINE [id number] / / Plate Cerv Cons 2 Level 34mm - [id number] Implanted:Qty : 1 on 03/03/2022 by Marilyn Aquino MD at [place] [facility] [place] N/A: Spine Cervical SHARITA : SPINE [id number] / / Screw Olivia 4x14mm Self Ca - [id number] Implanted:Qty : 6 on 03/03/2022 by Marilyn Aquino MD at [place] [facility] [place] N/A: Spine Cervical SHARITA : SPINE [id number] / / Lens [id number] 12.5mm+23.00 - [id number] - [id number] Implanted:Qty : 1 on 09/01/2022 by Manuel Saba MD at OR [facility] Right: Eye BAUSCH & LOMB 01/26/2025 [id number] / [id number] / [id number] documented as of this encounter Advance Directives [...] Discussed due to patient's condition Care Teams Dermatopathologist Relationship Specialty Start Date End Date Juan Hernandez MD [address] [place] [address] PCP - General Family Medicine 07/01/15 documented as of this encounter
--- OUTSIDE RECORDS SUMMARY | 2024-01-06 17:44 | External Medical Summary | Summary of Care ---
Author Name Unknown Organization [facility] [address] [address] Phone [phone] Care Team Providers Care Analysis Reporting Developer Name Role Phone Juan Hernandez MD Primary Care Provider + Encounter Details Date Type Department Care Team (Late st Contact Info) Description 07/18/2023 3:00 PM EDT Telemedicine Nutrition & Weight Management, [facility] [address] [place] [address] Jennifer Negro PA-C [address] [place] [id number] Abnormal weight gain*; Overweight (BMI 25.0-29.9) Allergies Active Allergy Reactions Criticality Noted Date Comments Topiramate Cough 04/28/2017 documented as of this encounter (statuses as of 07/18/2023) Medications Medication Sig Dispensed Refills Start Date End Date Status Fluticasone Propionate 50 MCG/ACT Nasal Suspension Administer 2 Sprays into each nostril 2 times a day. 18 mL 11 1 Active traZODone HCl 100 MG Oral Tablet (Desyrel)Indications :Idiopathic hypersomnia TAKE ONE TABLET BY MOUTH BEFORE BEDTIME 90 Tablet 3 3 10/02/19 24 Active Fluocinonide 0.05 % External Cream Apply topically to affected area 2 times a day to dry skin behind ears 30 g 3 Active Levocetirizine Dihydrochloride 5 MG Oral TabletIndications:Ch ronic cough,Upper airway cough syndrome TAKE ONE TABLET BY MOUTH BEFORE BEDTIME 90 Tablet 1 3 12/10/19 24 Active Atorvastatin Calcium 80 MG Oral Tablet (Lipitor)Indications :Family history of premature CAD,Dyslipidemia, goal LDL below 70 TAKE ONE TABLET BY MOUTH EVERY day 90 Tablet 4 Active Armodafinil 250 MG Oral TabletIndications:Id iopathic hypersomnia Take 1 Tablet by mouth in the morning. Do not start before July 19, 2023. 90 Tablet 2 4 Active Pantoprazole Sodium 40 MG Oral Tablet Delayed Release (Protonix)Indication s:Gastroesophageal reflux disease without esophagitis TAKE ONE TABLET BY MOUTH EVERY DAY THIRTY MINUTES BEFORE THE FIRST MEAL OF THE DAY. DO NOT CRUSH, SPLIT, OR CHEW 90 Tablet 1 4 06/08/19 25 Active Amphetamine-Dextroam phetamine 15 MG Oral TabletIndications:Hy persomnia, periodic TAKE ONE TABLET BY MOUTH TWICE A DAY, EVERY MORNING AND AT NOON 180 Tablet 4 12/10/19 24 Active Amphetamine-Dextroam phet ER 30 MG Oral Capsule Extended Release 24 Hour (Adderall XR)Indications:Hyper somnia, periodic TAKE ONE CAPSULE BY MOUTH EVERY DAY IN THE MORNING 90 Capsule 4 12/10/19 24 Active Semaglutide(0.25 or 0.5MG/DOS) 2 MG/3ML Solution Pen-injector (Ozempic) Inject 0.5 mg under the skin once a week. 9 mL 1 4 Active Semaglutide(0.25 or 0.5MG/DOS) 2 MG/3ML Solution Pen-injector (Ozempic) Inject 0.5 mg under the skin once a week. 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 Increased risk for Familial Hypercholesterolemia.Proband RQ [id number]. Proband report date 10/09/2020 (MM/DD/YYYY). Please click [...] as of this encounter Progress Notes * Jennifer Negro PA-C - 07/18/2023 3:02 PM EDT [facility] Note Follow up Patient location: HOME. I was in a hospital or clinic location. After connecting through [employer],patient was verified with two unique identifiers. 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 Methods to assure confidentiality were taken. Patient acknowledged consent and understanding of pr ivacy and security of the Telemedicine visit. The patient agreed to participate. There are no exam notes on file for this visit. HPI Migdalia Jennifer Madden presents in follow up to the comprehensive weight management clinic. Thepatient is a 53 year old female Patient is receiving ongoing education regarding dietary and physical modifications for weight loss. Weight history - Initial clinic visit 12/12/2022 Weight 158 lbs Height 61" Body mass index is 29.41 kg/m. Today's weight: 136 pounds Total weight loss of -22 pounds since initial weight in clinic The patient's weight has -4 pounds since the last visit on 04/21/23 Wt Readings from Last 6 Encounters: 07/14/23 61.9 kg (136 lb 9 oz) 04/21/23 63.5 kg (140 lb) 12/12/22 71.8 kg (158 lb 6.4 oz) 09/14/22 73.9 kg (162 lb 14.4 oz) 09/01/22 75.3 kg (166 lb) 08/22/22 75.7 kg (166 lb 12.8 oz) 07/18/2023 -telemedicine follow up ozempic -on ozempic 0.5mg weekly -goal is 130 pounds-- 6 more pounds! 04/21/2023 -follow up -started ozempic last visit 12/12/22 -on ozempic 0.5mg weekly was due Monday but out Visit 12/12/22 The patient suffers from Overweight Patient is interested in the following treatment options for obesity: possible medication use. 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 Previous interventions: Self-directed. Cutting back, cutting back on sweets The patient confirms any past pharmacotherapy for weight loss Phentermine and Wellbutrin. - Overall goal: 20 + pounds Current diet: Getting 30g-40g protein per day Describes typical diet history/24 hr recall Breakfast: protein bar-- usually 20g protein Snacks: banana Lunch: leftovers from the night before sometimes busy Snacks: protein bar if anything Dinner: chicken, pork chops, little bit of potatoes Snacks: maybe ice cream Drinks: water Restaurant meals: rare Past Medical History Patient Active Problem List Diagnosis Attention deficit disorder without hyperactivity MEDICATION USE AGREEMENT Dyslipidemia, goal LDL below 130 Lumbar disc disease Insomnia Obesity, Class I, BMI 30.0-34.9 (see actual BMI) Excessive daytime sleepiness Well adult exam Chronic rhinitis Gastroesophageal reflux disease with esophagitis without hemorrhage Chronic cough 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 18 mL 11 traZODone HCl 100 MG Oral Tablet (Desyrel) TAKE ONE TABLET BY MOUTH BEFORE BEDTIME 90 Tablet 3 Fluocinonide 0.05 % External Cream Apply topically to affected area 2 times a day to dry skin behind ears 30 g 0 Levocetirizine Dihydrochloride 5 MG Oral Tablet TAKE ONE TABLET BY MOUTH BEFORE BEDTIME 90 Tablet 1 Semaglutide(0.25 or 0.5MG/DOS) 2 MG/3ML Solution Pen-injector (Ozempic) Inject 0.5 mg under the skin once a week. 3 mL 0 Atorvastatin Calcium 80 MG Oral Tablet (Lipitor) TAKE ONE TABLET BY MOUTH EVERY day 90 Tablet 0 [START ON 07/19/2023] Armodafinil 250 MG Oral Tablet Take 1 Tablet by mouth in the morning. Do not start before July 19, 2023. 90 Tablet 2 Pantoprazole Sodium 40 MG Oral Tablet Delayed Release (Protonix) TAKE ONE TABLET BY MOUTH EVERY DAYTHIRTY MINUTES BEFORE THE FIRST MEAL OF THE DAY. DO NOT CRUSH, SPLIT, OR CHEW 90 Tablet 1 Amphetamine-Dextroamphetamine 15 MG Oral Tablet TAKE ONE TABLET BY MOUTH TWICE A DAY, EVERY MORNINGAND AT NOON 180 Tablet 0 Amphetamine-Dextroamphet ER 30 MG Oral Capsule Extended Release 24 Hour (Adderall XR) TAKE ONE CAPSULE BY MOUTH EVERY DAY IN THE MORNING 90 Capsule 0 No current facility-administered medications for this visit. Review of Systems: Review of Systems Gastrointestinal: Negative for abdominal pain, diarrhea, nausea and vomiting. Denies nvd, constipation PHYSICAL EXAMINATION: LMP (LMP Unknown) Physical Exam Constitutional: Appearance: Normal appearance. HENT: Head: Normocephalic and atraumatic. Pulmonary: Effort: Pulmonary effort is normal. No respiratory distress. Neurological: Mental Status: Patient is alert and oriented to person, place, and time. Psychiatric: Mood and Affect: Mood normal. Assessment and Plan: Abnormal weight gain / There is no height or weight on file to calculate BMI. / Overweight: - Barriers are consistency, - Motivators are feeling better overall, avoiding/reducing co-morbid conditions - The patient was encouraged to to avoid all fruit juices and regular sodas, consume at least 64 ounces of water per day, keep food logs and get weighed on a weekly basis. They were encouraged to increase physical activity as prescribed. - Handouts regarding nutrition and physical activity were provided, as appropriate. GOALS Will continue with ozempic 0.5mg weekly Be sure to get in minimum protein goals (60g) aiming for 80g-100g per day-- still falling a little bit short Don't skip meals -- reports not skipping meals Increase exercise -continue ozempic 0.5mg weekly-- start to think about weight maintenance. May need to decrease doseif hitting 130 pounds and still losing Anti obesity Medication Indications: BMI >30 or BMI >27 with obesity related comorbidity & no apparent contraindications Goal is to lose ~5% wt loss in 3 mo Anti-Obesity Medication -- [employer] employee Medication: Ozempic Start date 12/12/22 Starting weight 158 pounds Current weight 136 pounds Total weight loss -22 pounds 14 % body weight The patient has shown at least 5% body weight loss since starting Semaglutide. Recommend continuingtreatment with Ozempic. There are no diagnoses linked to this encounter. Overweight (BMI 25.0-29.9) Goals as above Can't take topamax Avoid phentermine-- on adderall and was on phentermine in the past and it didn't help the second time Could consider wellbutrin/naltrexone Continue ozempic 0.5mg weekly Plan Semaglutide(0.25 or 0.5MG/DOS) 2 MG/3ML Solution Pen-injector (Ozempic) Gastroesophageal reflux disease with esophagitis without hemorrhage Stable on ppi-- continue Dyslipidemia, goal LDL below 130 Continue statin Abnormal weight gain Excessive daytime sleepiness On adderall Avoid phentermine The patient agreed to try the plan as discussed and return in 6 months. They were encouraged to call or send a patient portal message in the meantime with any questions or concerns prior to their next clinic visit. I spent a total of 20 minutes on the date of service in preparation, delivery, and documentation ofthe care provided to Migdalia Madden excluding any time spent in the performance of separately billed services. This included but was no limited to providing counseling about the benefits of weight loss, about their nutritional status, detailed explanations about calorie count, types of nutrients to choose, and composition of the meals. Motivational interview provided in order to prepare the patient to achieve future goals. Jennifer Negro PA-C, [facility] Nutrition and Weight Management [facility] ([facility]) documented in this encounter Plan of Treatment Upcoming Encounters Date Type Department Care Team (Late st Contact Info) Description 08/18/2023 9:30 AM EDT Office Visit Orthopaedics [address] [place] [phone] Aquilino Robledo MD [address] [place] [id number] 09/25/2023 7:30 AM EDT Imaging Radiology [facility] [place] [address] [place] [address] 10/20/2023 8:00 AM EDT Office Visit Op[facility]mology, [facility] [address] [facility] [place] [address] Charan Churchill MD [address] [place] [id number] 05/29/2024 8:20 AM EDT Office Visit Family Practice [facility] [address] [place] [address] Juan Hernandez MD [address] [place] [address] Scheduled Procedures Name Priority Associated Diagnoses Date/Ti [...] 1210/2018, 04/09/2015, Additional history exists COVID-19 Vaccine ( [...] this encounter Medical Devices Implanted Type Area Sales Performance Analyst Device Identifier Shelf Expiration Date Model / Serial / Lot Dbx [employer] [facility] [id number] - [id number] - [id number] Implanted:Qty : 1 on 03/03/2022 by Marilyn Aquino MD at OR [facility] N/A: Spine Cervical [employer]CULOSKELETAL TRANSPLANT FND [id number] 10/15/2023 [id number] / [id number] / [id number] Spacer Avs [id number] - [id number] Implanted:Qty : 2 on 03/03/2022 by Marilyn Aquino MD at OR [facility] N/A: Spine Cervical SHARITA : SPINE [id number] / / Plate Cerv Cons 2 Level 34mm - [id number] Implanted:Qty : 1 on 03/03/2022 by Marilyn Aquino MD at OR [facility] N/A: Spine Cervical SHARITA : SPINE [id number] / / Screw Olivia 4x14mm Self Ca - [id number] Implanted:Qty : 6 on 03/03/2022 by Marilyn Aquino MD at OR [facility] N/A: Spine Cervical SHARITA : SPINE [id number] / / Lens [id number] 12.5mm+23.00 - [id number] - [id number] Implanted:Qty : 1 on 09/01/2022 by Manuel Saba MD at [facility] Right: Eye [employer]CH [employer]OMB 01/26/2025 [id number] / [id number] / [id number] documented as of this encounter Visit Diagnoses Diagnosis Abnormal weight gain- Primary Overweight (BMI 25.0-29.9) Overweight documented in this encounter Advance Directives * [...] Discussed due to patient's condition Care Teams Analysis Reporting Developer Relationship Specialty Start Date End Date Juan Hernandez MD [address] [place] [address] PCP - General Family Medicine 07/01/15 documented as of this encounter
--- OUTSIDE RECORDS SUMMARY | 2024-01-06 17:44 | External Medical Summary | Summary of Care ---
Author Name Unknown Organization [facility] Address [address] [facility] [place] [address] Phone [phone] Care Team Providers Care Photocopying Equipment Repairer Name Role Phone Juan Hernandez MD Primary Care Provider + Reason for Visit * Reason Comments PAP Encounter Details Date Type Department Care Team (Latest Contact Info) Description 07/14/2023 7:40 AM EDT Office Visit Family Practice [facility] [address] [place] [phone] Chandni Ashby CRNP [address] [place] [phone] Well woman exam with routine gynecological exam*; Pap smear for cervical cancer screening; Screening for cervical cancer; Encounter for screening mammogram for breast cancer; Shortness of breath Allergies Active Allergy Reactions Criticality Noted Date Comments Topiramate Cough 04/28/2017 documented as of this encounter (statuses as of 07/14/2023) Medications Medication Sig Dispensed Refills Start Date [...] dry skin behind ears 30 g 0 11/02/2022 Active Levocetirizine Dihydrochloride 5 MG Oral TabletIndications:Ch ronic cough,Upper airway cough syndrome TAKE ONE TABLET BY MOUTH BEFORE BEDTIME 90 Tablet 1 12/10/2022 4 Active Semaglutide(0.25 or 0.5MG/DOS) 2 MG/3ML Solution Pen-injector (Ozempic) Inject 0.5 mg under the skin once a week. 3 mL 0 04/21/2023 Active Atorvastatin Calcium 80 MG Oral Tablet (Lipitor)Indications :Family history of premature CAD,Dyslipidemia, goal LDL below 70 TAKE ONE TABLET BY MOUTH EVERY day 90 Tablet 0 05/02/2023 Active Armodafinil 250 MG Oral TabletIndications:Id iopathic [...] EVERY MORNING AND AT NOON 180 Tablet 0 06/13/2023 4 Active Amphetamine-Dextroam phet ER 30 MG Oral Capsule Extended Release 24 Hour (Adderall XR)Indications:Hyper somnia, periodic TAKE ONE CAPSULE BY MOUTH EVERY DAY IN THE MORNING 90 Capsule 0 06/13/2023 4 Active Semaglutide(0.25 or 0.5MG/DOS) 2 MG/3ML Solution Pen-injector (Ozempic) Inject 0.5 mg under the skin once a week. 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 Increased risk for Familial Hypercholesterolemia.Proband RQ [id number]. Proband report date 10/09/2020 (MM/DD/YYYY). 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 Had UDS done 03/26/12 c/w prescribed adderall - compliant w/ med use agreement. Lumbar disc disease documented as of this encounter (statuses as of 07/14/2023) Resolved Problems Problem Noted Date Diagnosed Date Resolved Date Acne 12/03/2012 04/12/2018 Back pain 09/04/2017 Hip pain 09/04/2017 documented as of this encounter (statuses as of 07/14/2023) Immunizations Name Administration Dates Next Due COVID-19 mRNA, LNP-s, No Pre serve, 2-Dose Series (iHydroRun) 05/03/2020,04/05/2020 DTaP Dipth/Tet/Acell Pertussis (Infanrix), Peds 06/13/1974,06/10/1971,1970,1970 [...] Sign Reading Time Taken Comments Blood Pressure 90/60 07/14/2023 7:41 AM EDT Pulse 60 07/14/2023 7:41 AM EDT Temperature - - Respiratory Rate - - Oxygen Saturation - - Inhaled Oxygen Concentration - - Weight 61.9 kg (136 lb 9 oz) 07/14/2023 7:41 AM EDT Height - - Body Mass Index 25.8 04/21/2023 8:47 AM EST documented in this encounter Functional Status Functional [...] as of this encounter Progress Notes * Keira Ruiz LPN - 07/14/2023 7:56 AM EDT Patient has been verbally educated on the need or importance of Cervical Cancer Screening. Pap is scheduled to be completed today. Pap has been ordered and signed for provider. * Chandni Ashby CRNP - 07/14/2023 7:54 AM EDT Family Medicine Visit Well Woman Complete Physical CC: Well woman exam History of Present Illness: Migdalia is a 53 year old female presenting for well woman exam today. LMP 3 years ago Had hotflashes at first but now improved. Denies vaginal dryness or pain with intercourse. Contraception- declines History of STI-Denies History of breast disease- denies History of abnormal pap- denies Last Mammo-08/2022 Colonoscopy-due 2026 PAP- last pap was 2019 and normal STI testing- declines Screening labs for cholesterol and blood sugar due UTD on vaccines- declines shingrix Bone Dexa Scan- dUE AT 65YO Also complains of random shortness of breath for the last month. Feels like she can not get enough air. Denies cough or wheezing. Denies associated chest pain, upper back pain, nausea, arm pain or jaw pain. Denies hx of asthma. 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 Tobacco Use Smoking status: Never Smokeless tobacco: Never Vaping Use Vaping Use: Never used Substance and Sexual Activity Alcohol use: Yes Comment: 0-2. no binge Drug use: No Sexual activity: Yes Partners: Male Comment: . no DV. daughter--teaching in [place]. Social History Narrative 1 dog in her home. No mold. Helps w/soccer concession. Likes being outside, gardening. Social Determinants of Health Food Insecurity: No Food Insecurity (09/17/2019) Hunger Vital Sign Worried About Running Out of Food in the Last Year: Never true Ran Out of Food in the Last Year: Never true Family History Problem Relation Age of Onset Diabetes Mother they live near [address] COVID Heart Disorder Mother 60 3v [...] no known hx breast or ovarian Ca Past Medical History: Diagnosis Date Acne 12/03/2012 Attention deficit disorder without hyperactivity Back pain Excessive daytime sleepiness 05/09/2017 Insomnia 08/26/2016 Sleep maint Lumbar disc disease MEDICATION USE AGREEMENT for ADD meds Obesity 10/12/2016 S/P cervical spinal fusion 03/04/202203/21 Current medication list reviewed. Review of Systems Constitutional: Negative for fatigue and fever. Respiratory: Positive for shortness of breath. Negative for cough, chest tightness and wheezing. Cardiovascular: Negative for chest pain. Gastrointestinal: Negative for constipation, diarrhea, nausea and vomiting. Genitourinary: Negative for frequency and hematuria. LMP 3 YEARS AGO Neurological: Negative for dizziness and syncope. Psychiatric/Behavioral: Negative for dysphoric mood and sleep disturbance. The patient is not nervous/anxious. Filed Vitals: 07/14/23 0741 BP: 90/60 Pulse: 60 Weight: 61.9 kg (136 lb 9 oz) Physical Exam Vitals and nursing note reviewed. Exam conducted with a vba programmer present. HENT: Head: Normocephalic. Right Ear: No drainage or swelling. Left Ear: No drainage or swelling. Nose: Nose normal. Mouth/Throat: Pharynx: Oropharynx is clear. Eyes: Extraocular Movements: Extraocular movements intact. Conjunctiva/sclera: Conjunctivae normal. Neck: Thyroid: No thyroid mass or thyromegaly. Cardiovascular: Rate and Rhythm: Normal rate and regular rhythm. Pulmonary: Effort: Pulmonary effort is normal. Breath sounds: Normal breath sounds. Chest: Breasts: Right: Normal. No mass, nipple discharge, skin change or tenderness. Left: Normal. No mass, nipple discharge, skin change or tenderness. Abdominal: General: Bowel sounds are normal. Palpations: Abdomen is soft. Tenderness: There is no abdominal tenderness. Hernia: There is no hernia in the left inguinal area or right inguinal area. Genitourinary: General: Normal vulva. Exam position: Lithotomy position. Pubic Area: No rash. Labia: Right: No tenderness or lesion. Left: No tenderness or lesion. Vagina: Tenderness present. No erythema. Cervix: No friability. Uterus: Normal. Adnexa: Right: No mass or tenderness. Left: No mass or tenderness. Comments: Strophic vaginitis Stenotic cervical os Patient tolerated with mild discomfort Musculoskeletal: Cervical back: Normal range of motion. Lymphadenopathy: Cervical: No cervical adenopathy. Upper Body: Right upper body: No supraclavicular, axillary or pectoral adenopathy. Left upper body: No supraclavicular, axillary or pectoral adenopathy. Lower Body: No right inguinal adenopathy. No left inguinal adenopathy. Skin: General: Skin is warm and dry. Neurological: Mental Status: She is alert and oriented to person, place, and time. Psychiatric: Attention and Perception: Attention normal. Mood and Affect: Mood normal. Speech: Speech normal. Behavior: Behavior normal. Behavior is cooperative. Thought Content: Thought content normal. Cognition and Memory: Cognition and memory normal. Judgment: Judgment normal. Assessment and Plan: 1. Well woman exam with routine gynecological exam Educated the patient on routine and scheduled health maintenance items. Age appropriate preventive guidance provided to patient. Discussion of age appropriate generally recommended screening tests reviewed. Tests ordered in agreement with patient. Greater than half of visit spent on counselling and discussion of patient illness, along with pros and cons of various treatment options. Declines shingrix Utd on colonoscopy Due for labs 2. Pap smear for cervical cancer screening 3. Screening for cervical cancer - PLATE SETTER PAP SCREEN; Future 4. Encounter for screening mammogram for breast cancer - MAMMOGRAM SCREENING CHAPIN BILATERAL; Future 5. Shortness of breath Random with no cough or chest pain Present for 1 month Check EKG and and x ray - EKG; Future - XR CHEST 2 VIEWS : I have advised the patient to call our office incase of any worsening or new symptoms. I spent a total of 40-54 minutes (exact time 40 mins) on the date of service in preparation, delivery, and documentation of the care provided to Migdalia Payann excluding any time spent inthe performance of separately billed services. BATOOL Avalos, ERIBERTO [facility] Family Medicine documented in this encounter Plan of Treatment Upcoming Encounters Date Type Department Care Team (Late st Contact Info) Description 07/18/2023 3:00 PM EDT Telemedicine Nutrition & Weight Management, [facility] [address] [facility] [place] [address] eJnnifer Negro PA-C [address] [place] [address] 08/18/2023 9:30 AM EDT Office Visit Orthopaedics Stephan Baron [address] [phone] Aquilino Robledo MD [address] [facility] [place] [address] 09/25/2023 7:30 AM EDT Imaging Radiology [facility] [place] [address] [place] [address] 10/20/2023 8:00 AM EDT Office Visit Ophthalmology, [facility] [address] [place] [address] Charan Churchill MD [address] [place] [address] 05/29/2024 8:20 AM EDT Office Visit Family Practice [facility] [address] [place] [address] Juan Hernandez MD [address] [place] [address] Scheduled Orders Name Type Priority Associated Diagnoses Orde r Schedule PLATE SETTER PAP SCREEN Pathology Routine Screening for cervical cancer Expected: 07/14/2023, Expires: 08/13/2024 MAMMOGRAM SCREENING CHAPIN BILATERAL Medical Imaging Routine Encounter for screening mammogram for breast cancer Expected: 07/14/2023, Expires: 08/13/2024 EKG EKG Routine Shortness of breath Expected: 07/14/2023 (Approximate), Expires: 08/13/2024 XR CHEST 2 VIEWS Medical Imaging Routine Shortness of breath Ordered: 07/14/2023 Scheduled Procedures Name Priority Associated Diagnoses Date/Ti [...] this encounter Medical Devices Implanted Type Area Claim Technician Device Identifier Shelf Expiration Date Model / Serial / Lot Dbx c [id number] - [id number] - [id number] Implanted:Qty : 1 on 03/03/2022 by Marilyn Aquino MD at [place] [facility]/A: Spine Cervical MUSCULOSKELETAL TRANSPLANT FND [id number] 10/15/2023 [id number] / [id number] / [id number] Spacer Avs [id number] - [id number] Implanted:Qty : 2 on 03/03/2022 by Marilyn Aquino MD at [place] [facility] [place] N/A: Spine Cervical SHARITA : SPINE [id number] / / Plate Cerv Cons 2 Level 34mm - [id number] Implanted:Qty : 1 on 03/03/2022 by Marilyn Aquino MD at OR [facility] [place] N/A: Spine Cervical SHARITA : SPINE [id number] / / Screw Olivia 4x14mm Self Ca - [id number] Implanted:Qty : 6 on 03/03/2022 by Marilyn Aquino MD at [place] [facility] [place] N/A: Spine Cervical SHARITA : SPINE [id number] / / Lens [id number] 12.5mm+23.00 - [id number] - [id number] Implanted:Qty : 1 on 09/01/2022 by Manuel Saba MD at OR [facility] Right: Eye BA[employer]CH [employer] LOMB 01/26/2025 [id number] / [id number] / [id number] documented as of this encounter Visit Diagnoses Diagnosis Well woman exam with routine gynecological exam- Primary Routine gynecological examination Pap smear for cervical cancer screening Screening for malignant neoplasm of the cervix Screening for cervical cancer Screening for malignant neoplasm of the cervix Encounter for screening mammogram for breast cancer Shortness of breath documented in this encounter Advance Directives Latest Code Status on File Code Status Date Activated Date Inactivated Comments No Code 09/01/2022 8:37 AM 09/01/2022 2:32 PM This or merly reflects the patients wishes and were consensually agreed upon. Question Answer Comments Discussion of Advance Directives occurred with: Patient Does the patient have a Living Will? No Does the patient have Health Care Power of Shank Paperer? No Code Status History Code Status Date Activated Date Inactivated Comments Full Code 03/03/2022 8:45 AM 03/04/2022 3:50 PM Question Answer Comments Discussion of Advance Directives occurred with: Not Discussed due to patient's condition Care Teams Photocopying Equipment Repairer Relationship Specialty Start Date End Date Juan Hernandez MD [address] [place] [address] PCP - General Family Medicine 07/01/15 documented as of this encounter
--- OUTSIDE RECORDS SUMMARY | 2024-01-06 17:44 | External Medical Summary ---
Author Name Unknown Address Unknown Organization K01:[facility] [address] [address] Laboratory Report Ordering Provider Test Date Status VIN SINGH 07/14/2023 08:23:00 Final Observation Date Value Abnormality Reference (Units ) Status Human papilloma virus E6+E7 mRNA [Presence] in Cervix by ENZO with probe detection 07/14/2023 08:23:00 Negative Not Applicable Final No high/intermediate-risk Hu man Papillomavirus (HPV E6/E7 messenger RNA) detected by nucleic acid amplification.

This assay looks for high/intermediate risk Human Papillomavirus (HPV E6/E7 messenger RNA) by nucleic acid amplification. This assay includes the qualitative detection of HPV types 16,18,31,33,35,39,45,51,52,56,58,59,66 and 68 from cervical specimens.
This assay has been FDA cleared for Thin prep collection vials.
This assay has not been approved for use as a primary screening test for HPV and should be tested in conjunction with a PAP screen.
If collected utilizing a Surepath vial, the collection and specimen preparation of this test was developed, and its performance characteristics determined by [employer]. It has not been cleared or approved by the U.S. Food and Drug Administration (FDA). The FDA has determined that such clearance or approval is not necessary.
This assay has been performed at [facility], [address] [place] [address], [place]. [address]. Performing Location LABORATORY [address] [address]
--- OUTSIDE RECORDS SUMMARY | 2024-01-06 17:44 | External Medical Summary | Summary of Care ---
Author Name Unknown Organization [facility] Address [address] [facility] [place] [address] Phone [phone] Care Team Providers Care Geology Teacher Name Role Phone Juan Hernandez MD Primary Care Provider + Reason for Visit * Reason Comments Medication Refill Encounter Details Date Type Department Care Team (Late st Contact Info) Description 07/17/2023 Refill Cardiology [place] [address] [place] [phone] Tuyet Lynn MD [address] [place] [address] Family history of premature CAD; Dyslipidemia, goal LDL below 70 Allergies Active Allergy Reactions Criticality Noted Date Comments Topiramate Cough 04/28/2017 documented as of this encounter (statuses as of 07/17/2023) Medications Medication Sig Dispensed Refills Start Date [...] the skin once a week. 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 Increased risk for Familial Hypercholesterolemia.Proband RQ [id number]. Proband report date 10/09/2020 (MM/DD/YYYY). 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 Had UDS done 03/26/12 c/w prescribed adderall - compliant w/ med use agreement. Lumbar disc disease documented as of this encounter (statuses as of 07/17/2023) Resolved Problems Problem Noted Date Diagnosed Date Resolved Date Acne 12/03/2012 04/12/2018 Back pain 09/04/2017 Hip pain 09/04/2017 documented as of this encounter (statuses as of 07/17/2023) Immunizations Name Administration Dates Next Due COVID-19 [...] encounter Miscellaneous Notes * Telephone Encounter - Jennifer Clay LPN - 07/17/2023 8:45 AM EDTRefused Prescriptions: Disp Refills Atorvastatin Calcium 80 MG Oral Tablet (Li*90 Tab*3 Sig: TAKE ONE TABLET BY MOUTH EVERY dayRefused By: JENNIFER CLAY MReason for Refusal: Managed by another phys ician documented in this encounter Plan of Treatment Upcoming Encounters Date Type Department Care Team (Late st Contact Info) Description 07/18/2023 3:00 PM EDT Telemedicine Nutrition & Weight Management, [facility] 132 [facility] [place] [address] Jennifer Negro PA-C 132 [facility] [place] [address] 08/18/2023 9:30 AM EDT Office Visit Orthopaedics Stephan Baron [address] [place] [address] Aquilino Robledo MD [address] [place] [address] 09/25/2023 7:30 AM EDT Imaging Radiology [facility] 132 [facility] [place] [address] 10/20/2023 8:00 AM EDT Office Visit Ophthalmology, [facility] [address] [facility] [place] [address] Charan Churchill MD [address] [place] [address] 05/29/2024 8:20 AM EDT Office Visit Family [facility] [address] [place] [address] Juan Hernandez MD [address] [place] [address] Scheduled Procedures Name Priority Associated Diagnoses Date/Ti [...] this encounter Medical Devices Implanted Type Area Safety Inspector Device Identifier Shelf Expiration Date Model / Serial / Lot Dbx 1cc [id number] - [id number] - [id number] Implanted:Qty : 1 on 03/03/2022 by Marilyn Aquino MD at [place] [facility] [place] N/A: Spine Cervical MUSCULOSKELETAL TRANSPLANT FND [id number] 10/15/2023 [id number] / [id number] / [id number] Spacer Avs [id number] - [id number] Implanted:Qty : 2 on 03/03/2022 by Marilyn Aquino MD at OR [facility] [place] N/A: Spine Cervical SHARITA : SPINE [id number] / / Plate Cerv Cons 2 Level 34mm - [id number] Implanted:Qty : 1 on 03/03/2022 by Marilyn Aquino MD at OR [facility] [place] N/A: Spine Cervical SHARITA : SPINE [id number] / / Screw Olivia 4x14mm Self Ca - [id number] Implanted:Qty : 6 on 03/03/2022 by Marilyn Aquino MD at OR [facility] [place] N/A: Spine Cervical SHARITA : SPINE [id number] / / Lens [id number] 12.5mm+23.00 - [id number] - [id number] Implanted:Qty : 1 on 09/01/2022 by Manuel Saba MD at [place] [facility] Right: Eye [employer]USCH [employer] LOM[employer] 01/26/2025 [id number] / [id number] documented as of this encounter Visit Diagnoses [...] Discussed due to patient's condition Care Teams Geology Teacher Relationship Specialty Start Date End Date Juan Hernandez MD [address] [place] [address] PCP - General Family Medicine 07/01/15 documented as of this encounter
--- NOTE | 2024-01-06 18:16 | Emergency Department Note ---
Impression & Plan Abnormal LFTs, Abdominal pain, epigastric, Nausea, Hyperbilirubinemia ED Provider Note NAME: LÓPEZ LOMAS AGE: 53 SEX: F : 1970 ARRIVES VIA: Walk-In INFORMANT: Patient, ED PROVIDER(S): Diego Lima DO CHIEF COMPLAINT: Epigastric pain HPI: The patient is a 53-year-old female who presented to the emergency department for an evaluation of epigastric pain. The symptoms started approximate 2 weeks ago. She is also noticed nausea. She denies having any back pain. She does complain of intermittent headache. She denies having any lower extremity swelling or pain. She denies having any dysuria or frequency. The patient was seen by her family doctor and diagnosed with constipation but no laboratory radiographic studies were obtained. ROS: See above HPI for pertinent positives & negatives. A total of 10 systems reviewed and were otherwise negative. PAST MEDICAL HISTORY: See Below PAST SURGICAL HISTORY: See Below FAMILY HISTORY: See Below SOCIAL HISTORY: See Below HOME MEDICATIONS: See Below ALLERGIES: See Below VITALS: See Below PHYSICAL EXAMINATION: GENERAL: The patient is awake and alert. The patient appears uncomfortable. EYES: The conjunctivae are clear. The pupils are round and reactive. EARS, NOSE, MOUTH AND THROAT: The nose is without any evidence of any deformity. NECK: The neck is nontender and supple. RESPIRATORY: Normal respiratory effort is noted there is no evidence of wheezing rhonchi or rales CARDIOVASCULAR: Regular rate and rhythm noted there no murmurs rubs or gallops normal S1 normal S2. GASTROINTESTINAL: The abdomen is soft and nondistended. There is epigastric tenderness to palpation but no guarding or rigidity. MUSCULOSKELETAL/EXTREMITIES: There is no evidence of gross deformity full range of motion is noted in the hips and shoulders. SKIN: There is no obvious evidence of any rash. There are no petechiae, pallor or cyanosis noted. NEUROLOGIC: Patient is awake alert and oriented x3 strength is symmetric patellar reflexes are 2+ bilaterally MEDICAL DECISION MAKING: The patient is a 53-year-old female who presented to the emergency department for an evaluation of nausea. The patient was having nausea as well as epigastric pain after eating. She was treated with IV Zofran in the emergency department. She did not wish to have any pain medication while in the emergency department. I discussed the patient's laboratory and radiographic studies with her. She was found have an elevation in her LFTs as well as her bilirubin. She is not drink significant amounts of alcohol. The patient has not been using Tylenol and appropriately. Further laboratory studies were added but given the patient's findings I did [facility] have agreed to evaluate the patient in the emergency department. CT scan did not show any signs of cholecystitis or suggestion of choledocholithiasis. Triage Nursing notes reviewed. Prior medical records reviewed Vital Signs: reviewed and remarkable for no significant abnormalities Differential diagnosis: Etiologies such as appendicitis, diverticulitis, obstruction, inflammatory bowel disease, renal colic, PUD, biliary pathology, pancreatitis, mesenteric ischemia, aortic pathology, infections, genitourinary, UTI, perforated viscus, as well as others were entertained. ER treatment provided: See below Diagnostics interpreted by me: ECG: EKG was obtained in the emergency department. My interpretation is normal sinus rhythm at 72 bpm. There is no ectopy. There is no acute ST segment abnormalities noted. Cardiac Monitoring: An order was placed for continuous cardiac monitoring. The monitor shows a rate of 83 bpm with sinus rhythm. Laboratory studies: As stated above and show below. Imaging studies: See below. Radiographic imaging was reviewed by myself Consultation(s): I discussed this case with Dr. Harden who [facility] Past Med/Surg History Problem List (Updated 01/06/24 @ 21:32 by Diego Lima DO) Hyperbilirubinemia (Acute) Nausea (Acute) Abdominal pain, epigastric (Acute) Abnormal LFTs (Acute) Medical History Acid reflux High cholesterol Social History Smoking Status: Never smoker Second Hand Exposure: No; Do You Dip or Chew Tobacco: No; Hx Alcohol Use: Yes Alcohol type: wine Hx Substance Use: No Preferred Language: [place]i Communication Ability: Effective Behavioral Health Clinician Required: No Beliefs That Will Affect Care: None Current Living Situation: Spouse Other Information That Helps Us Care for You: No Feels Safe at Home: Yes Safety Concerns: Feels Safe At This Time Assistive Devices: None Allergies Allergies Allergy/AdvReac Type Severity Reaction Status Date / Time topiramate [From Tophuntsvillex] AdvReac Cough Verified 01/06/24 21:52 Home Meds Home Medications Medication Instructions Recorded Confirmed armodafinil 250 mg tablet 250 mg PO QAM 01/06/24 01/06/24 atorvastatin 80 mg tablet 80 mg PO DAILY 01/06/24 01/06/24 bisacodyl 10 mg rectal suppository 10 mg IL BID PRN Constipation 01/06/24 01/06/24 conjugated estrogens 0.625 mg/gram 0.312 mg vaginal HS 01/06/24 01/06/24 vaginal cream (Premarin) dextroamphetamine-amphetamine ER 30 mg PO QAM 01/06/24 01/06/24 30 mg 24hr capsule,extend release ondansetron HCl 4 mg tablet 4 mg PO Q6 PRN Nausea 01/06/24 01/06/24 pantoprazole 40 mg tablet,delayed 40 mg PO DAILYBB 01/06/24 01/06/24 release polyethylene glycol 3350 17 17 g PO UD 01/06/24 01/06/24 gram/dose oral powder semaglutide 0.25 mg or 0.5 mg (2 0.5 mg subcut WK 01/06/24 01/06/24 mg/3 mL) subcutaneous pen injector (Ozempic) trazodone 100 mg tablet 100 mg PO HS 01/06/24 01/06/24 Results & Data (ED) Vital Signs Vital Signs - 24 hr 01/06/24 17:50 01/06/24 18:15 01/06/24 21:00 Temperature 36.3 C L Temperature Source Temporal Artery Scan Pulse Rate 106 H 90 Pulse Rate [Apical] 78 Respiratory Rate 20 18 Respiratory Effort / Characteristics Non-Labored Spontaneous Respiratory Depth Normal Respiratory Pattern Regular Blood Pressure 105/72 Blood Pressure [Left Arm] 100/61 Blood Pressure Mean 83 Blood Pressure Mean [Left Arm] 74 Pulse Oximetry 96 98 Oxygen Delivery Method Room Air Room Air Sepsis Recent Fever Within 48 Hours No Sepsis New/Unexplained Change in Mental Status N/A Sepsis Action Taken by Nursing No Action Required 01/06/24 22:00 01/06/24 22:08 Temperature Temperature Source Pulse Rate 78 Pulse Rate [Apical] 81 Respiratory Rate 18 Respiratory Effort / Characteristics Non-Labored Spontaneous Respiratory Depth Normal Respiratory Pattern Regular Blood Pressure Blood Pressure [Left Arm] 101/59 L Blood Pressure Mean Blood Pressure Mean [Left Arm] 73 Pulse Oximetry 99 Oxygen Delivery Method Room Air Sepsis Recent Fever Within 48 Hours Sepsis New/Unexplained Change in Mental Status Sepsis Action Taken by [facility] Medications Current Medication List: was personally reviewed by me Laboratory Data Attestation: I reviewed the patient's lab results. 01/06/24 18:19 01/06/24 18:19 Lab Results 01/06/24 01/06/24 Range/Units 18:19 19:53 WBC 3.67 L (4.8-10.8) K/ul RBC 4.52 (4.20-5.40) M/uL Hgb 13.7 (12.0-16.0) g/dl Hct 39.8 (37.0-47.0) % MCV 88.1 (80.0-100.0) fL MCH 30.3 (25.0-34.0) pg MCHC 34.4 (32.0-36.0) g/dL RDW Std Deviation 53.5 H (36.4-46.3) fL RDW Coeff of Olivia 16.7 H (11.5-14.5) % Plt Count 294 (130-400) K/uL MPV 9.2 L (9.4-12.4) fL Immature Gran % (Auto) 0.3 % Neut % (Auto) 50.7 % Lymph % (Auto) 36.2 % Evangeline % (Auto) 11.4 % Eos % (Auto) 1.1 % Baso % (Auto) 0.3 % Neut # (Auto) 1.86 (1.40-6.50) K/uL Lymph # (Auto) 1.33 (1.20-3.40) K/uL Evangeline # (Auto) 0.42 (0.11-0.59) K/uL Eos # (Auto) 0.04 (0.00-0.50) K/uL Baso # (Auto) 0.01 (0.00-0.20) K/uL Immature Gran # (Auto) 0.01 (0.01-0.20) K/uL PT 13.3 H (9.0-12.0) Seconds INR 1.2 H (0.9-1.1) APTT 29 (21-31) Seconds PTT Ratio 1.1 Sodium 139 (136-145) mmol/L Potassium 3.5 (3.5-5.1) mmol/L Chloride 102 (98-107) mmol/L Carbon Dioxide 31 (21-32) mmol/L Anion Gap 6 (3-11) BUN 7 (6-23) mg/dl Creatinine 0.68 (0.6-1.2) mg/dl Est Cr Clr Drug Dosing 103.0 ml/min eGFR 104.07 BUN/Creatinine Ratio 10.3 (10-20) Glucose 72 (70-99(Fasting)) mg/dl Calcium 8.7 (8.6-10.3) mg/dl Total Bilirubin 6.0 H (0.2-1.0) mg/dl Direct Bilirubin 3.6 H (0-0.2) mg/dl AST 1479 H (13-39) U/L ALT 1353 H (7-52) U/L Alkaline Phosphatase 336 H (34-104) U/L Troponin I High Sens 6.0 (0-14) pg/ml Total Protein 6.3 (6.0-8.3) gm/dl Albumin 3.3 L (3.4-5.0) gm/dl Globulin 3.0 (2.5-4.0) gm/dl Albumin/Globulin Ratio 1.1 (0.9-2) Lipase 50 (11-82) U/L TSH 1.358 (0.300-4.500) uIu/ml Urine Color Dark Yellow Urine Appearance Clear (Clear) Urine pH 8.0 H (4.5-7.5) Ur Specific [place] > 1.045 H (1.000-1.030) Urine Protein Trace H (Negative) Urine Glucose (UA) Negative (Negative) Urine Ketones 1+ H (Negative) Urine Blood Negative (Negative) Urine Nitrite Negative (Negative) Urine Bilirubin 1+ H (Negative) Urine Urobilinogen Positive H (Negative) Ur Leukocyte Esterase Trace H (Negative) Urine WBC (Auto) 11-20 H (0-5) /hpf Urine RBC (Auto) 0-2 (0-2) /hpf U Hyaline Cast (Auto) 0-2 (0-2) /lpf U Epithel Cells (Auto) 3-5 H (0-2) /hpf Urine Bacteria (Auto) 1+ H (None Seen) Lyme Disease Screen Negative (Negative) Monoscreen Negative (Negative) Administered Medications Potassium Chloride/Sodium Chloride (Normal Saline W/20 Meq Kcl) 20 meq in 1,000 mls @ 100 mls/hr IV .Q10H ONE Stop: 01/07/24 07:36 Last Admin: 01/06/24 22:13 Dose: 100 mls/hr Documented By: MARCO Promethazine HCl (Phenergan) 6.25 mg in 50.25 mls @ 201 mls/hr IV Q6H PRN PRN Reason: Nausea And Vomiting Stop: 02/05/24 22:15 Last Infusion: 01/07/24 00:13 Dose: Infused Documented By: Admin: 01/06/24 23:44 Dose: 201 mls/hr Documented By: SIMRAN Trazodone HCl (Trazodone Hcl 100 Mg Tab) 100 mg PO HS SOFÍA Stop: 02/05/24 22:19 Last Admin: 01/06/24 23:50 Dose: Not Given Documented By: SIMRAN Discontinued Medications Ioversol (Optiray 320 100ml) 94 ml IV ONCE ONE Stop: 01/06/24 19:12 Last Admin: 01/06/24 19:11 Dose: 94 ml Documented By: DANIELITO Ondansetron HCl (Ondansetron Inj 2 Mg/Ml 2 Ml Vial) 4 mg IV NOW STA Stop: 01/06/24 18:08 Last Admin: 01/06/24 18:18 Dose: 4 mg Documented By: FEMI Imaging Data Attestation: I personally reviewed and interpreted this imaging study as follows: My Impression: 1 chest x-ray was obtained in the emergency department. My interpretation is no free air or definite infiltrate, final report below. CT of the abdomen and pelvis was obtained. My interpretation is no free air or signs of bowel obstruction, final report below. Radiologist's Impression: Chest X-Ray 01/06/24 18:07 EXAM: Radiograph of the Chest 1 View INDICATION: Pain and nausea. TECHNIQUE: Frontal view of the chest. COMPARISON: No relevant prior studies available. FINDINGS: Lungs and pleural spaces: No consolidation or pulmonary edema. No pleural effusion or pneumothorax. Heart: Shape and configuration within normal limits allowing for technique. Mediastinum: Normal contour. Bones/joints: Partially imaged lower anterior cervical fusion hardware grossly intact. No osseous abnormality identified. Soft tissues: No abnormality noted. No radiopaque foreign body noted. Upper abdomen: No free air noted subjacent to the diaphragm. IMPRESSION: No acute cardiopulmonary disease. ACT 112: Negative or not required by law. Electronically signed by Delbert Kay 01-06-2024 6:48 PM Abdomen/Pelvis CT 01/06/24 18:13 Exam(s): CT ABDOMEN + PELVIS With Contrast IV Amt: optiray 320 94ml EXAM: CT Abdomen and Pelvis With Intravenous Contrast CLINICAL HISTORY: pain, nausea. TECHNIQUE: Axial computed tomography images of the abdomen and pelvis with intravenous contrast. CTDI is 9.32 mGy and DLP is 450.83 mGy-cm. Automated exposure control was utilized for the study. A dose lowering technique was utilized adhering to the principles of ALARA. CONTRAST: Patient received optiray 320 94ml of IV contrast COMPARISON: No relevant prior studies available. FINDINGS: Lung bases: Unremarkable. No mass. No consolidation. ABDOMEN: Liver: Unremarkable. No mass. Gallbladder and bile ducts: Unremarkable. No calcified stones. No ductal dilation. Pancreas: Unremarkable. No mass. No ductal dilation. Spleen: Unremarkable. No splenomegaly. Adrenals: Unremarkable. No mass. Kidneys and ureters: No obstructive uropathy. No obstructing renal or ureteral calculi. No hydronephrosis or hydroureter. Stomach and bowel: No obstruction or ileus. No evidence for diverticulitis. PELVIS: Appendix: Appendix not identified. No secondary evidence for appendicitis. Bladder: Unremarkable. No mass. Reproductive: Uterus and ovaries are grossly unremarkable. ABDOMEN and PELVIS: Intraperitoneal space: No free air. Small amount of lower pelvic free fluid. Bones/joints: No acute fracture. Degenerative changes of the lower lumbar spine. Soft tissues: Unremarkable. Vasculature: Unremarkable. No abdominal aortic aneurysm. Lymph nodes: Unremarkable. No enlarged lymph nodes. IMPRESSION: No bowel obstruction or ileus. Nonspecific trace lower pelvic free fluid. Otherwise negative. Electronically signed by: Jean-Paul Spencer M.D. 01/06/24 21:15 PM Discharge Plan Visit Data Chief Complaint: Nausea Stated Complaint: NAUSEA ED Provider: Diego Lima Discharge Problem: Abnormal LFTs, Abdominal pain, epigastric, Nausea, Hyperbilirubinemia Patient Disposition: Admitted As Inpatient Discharge Instructions Interventions: ED Discharge Assessment Last Done: 01/06/24 23:01
[2024-01-06] MEDS: ONDANSETRON INJ 2 MG/ML 2 ML VIAL IV STA (18:18)
[2024-01-06 18:37] LABS: Basophils # (auto) 0.01 K/uL (0.00-0.20); Basophils % (auto) 0.3 %; Eosinophils # (auto) 0.04 K/uL (0.00-0.50); Eosinophils % (auto) 1.1 %; Hematocrit (blood only) 39.8 % (37.0-47.0); Hemoglobin 13.7 g/dl (12.0-16.0); Immature Granulocytes # (auto) 0.01 K/uL (0.01-0.20); Immature Granulocytes % (auto) 0.3 %; Lymphocytes # (auto) 1.33 K/uL (1.20-3.40); Lymphocytes % (auto) 36.2 %; Mean Corpuscular Hemoglobin 30.3 pg (25.0-34.0); Mean Corpuscular Hgb Conc 34.4 g/dL (32.0-36.0); Mean Corpuscular Volume 88.1 fL (80.0-100.0); Mean Platelet Volume 9.2 fL (9.4-12.4); Monocytes # (auto) 0.42 K/uL (0.11-0.59); Monocytes % (auto) 11.4 %; Neutrophils # (auto) 1.86 K/uL (1.40-6.50); Neutrophils % (auto) 50.7 %; Platelet Count 294 K/uL (130-400); RDW Coefficient of Variation 16.7 % (11.5-14.5); RDW Standard Deviation 53.5 fL (36.4-46.3); Red Blood Count 4.52 M/uL (4.20-5.40); White Blood Count 3.67 K/ul (4.8-10.8)
--- NOTE | 2024-01-06 18:52 | XRay Report ---
EXAM: Radiograph of the Chest 1 View INDICATION: Pain and nausea. TECHNIQUE: Frontal view of the chest. COMPARISON: No relevant prior studies available. FINDINGS: Lungs and pleural spaces: No consolidation or pulmonary edema. No pleural effusion or pneumothorax. Heart: Shape and configuration within normal limits allowing for technique. Mediastinum: Normal contour. Bones/joints: Partially imaged lower anterior cervical fusion hardware grossly intact. No osseous abnormality identified. Soft tissues: No abnormality noted. No radiopaque foreign body noted. Upper abdomen: No free air noted subjacent to the diaphragm. IMPRESSION: No acute cardiopulmonary disease. ACT 112: Negative or not required by law. Electronically signed by Kay Mandujano 01-06-2024 6:48 PM
[2024-01-06 18:57] LABS: BUN Creatinine Ratio 10.3 (10-20); Calcium 8.7 mg/dl (8.6-10.3); Potassium 3.5 mmol/L (3.5-5.1)
[2024-01-06] MEDS: OPTIRAY 320 100ml IV ONE (19:11)
[2024-01-06 20:20] LABS: Albumin Globulin Ratio 1.1 (0.9-2); Albumin Level 3.3 gm/dl (3.4-5.0); Total Protein 6.3 gm/dl (6.0-8.3)
[2024-01-06 20:32] LABS: Appearance Urine Clear (Clear); Bacteria Urine Automated 1+ (None Seen); Bilirubin Urine 1+ (Negative); Blood Urine Negative (Negative); Cast Urine Automated 0-2 /lpf (0-2); Color Urine Dark Yellow; Glucose Urine UA Negative (Negative); Ketones Urine 1+ (Negative); Leukocyte Esterase Urine Trace (Negative); Nitrite Urine Negative (Negative); Protein Urine Trace (Negative); RBC Urine Automated 0-2 /hpf (0-2); Specific Gravity Urine > 1.045 (1.000-1.030); Urobilinogen Urine Positive (Negative)
--- NOTE | 2024-01-06 21:16 | CT Scan Report ---
Exam(s): CT ABDOMEN + PELVIS With Contrast IV Amt: optiray 320 94ml EXAM: CT Abdomen and Pelvis With Intravenous Contrast CLINICAL HISTORY: pain, nausea. TECHNIQUE: Axial computed tomography images of the abdomen and pelvis with intravenous contrast. CTDI is 9.32 mGy and DLP is 450.83 mGy-cm. Automated exposure control was utilized for the study. A dose lowering technique was utilized adhering to the principles of ALARA. CONTRAST: Patient received optiray 320 94ml of IV contrast COMPARISON: No relevant prior studies available. FINDINGS: Lung bases: Unremarkable. No mass. No consolidation. ABDOMEN: Liver: Unremarkable. No mass. Gallbladder and bile ducts: Unremarkable. No calcified stones. No ductal dilation. Pancreas: Unremarkable. No mass. No ductal dilation. Spleen: Unremarkable. No splenomegaly. Adrenals: Unremarkable. No mass. Kidneys and ureters: No obstructive uropathy. No obstructing renal or ureteral calculi. No hydronephrosis or hydroureter. Stomach and bowel: No obstruction or ileus. No evidence for diverticulitis. PELVIS: Appendix: Appendix not identified. No secondary evidence for appendicitis. Bladder: Unremarkable. No mass. Reproductive: Uterus and ovaries are grossly unremarkable. ABDOMEN and PELVIS: Intraperitoneal space: No free air. Small amount of lower pelvic free fluid. Bones/joints: No acute fracture. Degenerative changes of the lower lumbar spine. Soft tissues: Unremarkable. Vasculature: Unremarkable. No abdominal aortic aneurysm. Lymph nodes: Unremarkable. No enlarged lymph nodes. IMPRESSION: No bowel obstruction or ileus. Nonspecific trace lower pelvic free fluid. Otherwise negative. Electronically signed by: Jean-Paul Spencer M.D. 01/06/24 21:15 PM
[2024-01-06 21:18] LABS: Bilirubin Direct 3.6 mg/dl (0-0.2)
[2024-01-06] MEDS: NSS + 20MEQ KCL 20 MEQ/1,000 ML BAG IV ONE (22:13)
--- NOTE | 2024-01-06 22:15 | History & Physical Report ---
Date of Service January 06, 2024 Assessment & Plan (1) Hepatitis: Plan: Possibly viral etiology Home medications for hyperlipidemia and daytime sleepiness possibly contributory (statin, armodafinil) GERD, on PPI ADHD, on Adderall Medical floor IVF Hepatitis workup Hold statin and armodafinil for now Trend LFTs GI consult re: hepatitis DVT prophylaxis. Lovenox subcu Full code Text document was generated using [employer] voice recognition software. It may contain grammatical or spelling errors. Kindly contact undersigned for clarification of any documentation item in question. History of Present Illness Chief Complaint: Abdominal pain Primary Care Provider: Juan Hernandez MD History obtained from patient, family, and records. Medical history significant for hyperlipidemia, GERD, ADHD, daytime sleepiness on armodafinil. 2 weeks history of nausea, vomiting symptoms. Achy abdominal pain with constipation symptoms. Denies recent EtOH abuse or inordinate Tylenol Rx intake. Transient headache symptoms without chest pain. SOB from weakness. Not sure about sick contacts. No recent out-of-town travel or consumption of unusual food. Patient seen at PCPs office 2 days ago. Symptoms attributed to GERD and constipation. GI symptoms attributed by PCP to Ozempic use although Ozempic stopped by patient even before symptoms started due to some nausea symptoms from medication as per patient account. Patient brought by to ER for evaluation. 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 Allergies Allergy/AdvReac Type Severity Reaction Status Date / Time topiramate [From Topamax] AdvReac Cough Verified 01/06/24 21:52 Home Medications Medication Instructions Recorded Confirmed Type armodafinil 250 mg tablet 250 mg PO QAM 01/06/24 01/06/24 History atorvastatin 80 mg tablet 80 mg PO DAILY 01/06/24 01/06/24 History bisacodyl 10 mg rectal suppository 10 mg WI BID PRN Constipation 01/06/24 01/06/24 History conjugated estrogens 0.625 mg/gram 0.312 mg vaginal HS 01/06/24 01/06/24 History vaginal cream (Premarin) dextroamphetamine-amphetamine ER 30 mg PO QAM 01/06/24 01/06/24 History 30 mg 24hr capsule,extend release ondansetron HCl 4 mg tablet 4 mg PO Q6 PRN Nausea 01/06/24 01/06/24 History pantoprazole 40 mg tablet,delayed 40 mg PO DAILYBB 01/06/24 01/06/24 History release polyethylene glycol 3350 17 17 g PO UD 01/06/24 01/06/24 History gram/dose oral powder semaglutide 0.25 mg or 0.5 mg (2 0.5 mg subcut WK 01/06/24 01/06/24 History mg/3 mL) subcutaneous pen injector (Ozempic) trazodone 100 mg tablet 100 mg PO HS 01/06/24 01/06/24 History Past Med/Surg History Problem List (Updated 01/07/24 @ 02:25 by Barrett Khan MD) Hepatitis Hyperbilirubinemia (Acute) Nausea (Acute) Abdominal pain, epigastric (Acute) Abnormal LFTs (Acute) Medical History Acid reflux High cholesterol Social History Smoking Status: Never smoker Second Hand Exposure: No; Do You Dip or Chew Tobacco: No; Hx Alcohol Use: Yes Alcohol type: wine Hx Substance Use: No Preferred Language: Citizen Of [place] Communication Ability: Effective Coding File Clerk Required: No Beliefs That Will Affect Care: None Current Living Situation: Spouse Other Information That Helps Us Care for You: No Feels Safe at Home: Yes Safety Concerns: Feels Safe At This Time Assistive Devices: None Review of Systems Review of Systems: As per HPI, all other systems reviewed and negative Physical Exam Physical Exam: GENERAL: Comfortable, pleasant, no respiratory distress SKIN: Normal color, warm HEENT: Ewing palpebral conjunctivae, no ptosis, dry buccal mucosa NECK : Supple, no tenderness CHEST : CTA, no tenderness HEART : RRR, no obvious murmurs ABDOMEN: Minimal distention, epigastric tenderness EXTREMITIES : No LE swelling/tenderness, no other conspicuous deformities noted NEUROLOGIC : Coherent, no facial asymmetry, no other gross focality Results & Data Results & Data Vital Signs (Past 12 Hours) Vital Signs Temp Pulse Pulse Resp BP BP Pulse Ox 01/06/24 22:08 78 01/06/24 22:00 81 18 101/59 L 99 01/06/24 21:00 78 18 100/61 98 01/06/24 18:15 90 01/06/24 17:50 36.3 C L 106 H 20 105/72 96 O2 Del Method 01/06/24 22:08 01/06/24 22:00 Room Air 01/06/24 21:00 Room Air 01/06/24 18:15 01/06/24 17:50 Room Air Laboratory Results Laboratory Results WBC 3.67 K/ul (4.8-10.8) L 01/06/24 18:19 RBC 4.52 M/uL (4.20-5.40) 01/06/24 18:19 Hgb 13.7 g/dl (12.0-16.0) 01/06/24 18:19 Hct 39.8 % (37.0-47.0) 01/06/24 18:19 MCV 88.1 fL (80.0-100.0) 01/06/24 18:19 MCH 30.3 pg (25.0-34.0) 01/06/24 18:19 MCHC 34.4 g/dL (32.0-36.0) 01/06/24 18:19 RDW Std Deviation 53.5 fL (36.4-46.3) H 01/06/24 18:19 RDW Coeff of Olivia 16.7 % (11.5-14.5) H 01/06/24 18:19 Plt Count 294 K/uL (130-400) 01/06/24 18:19 MPV 9.2 fL (9.4-12.4) L 01/06/24 18:19 Immature Gran % (Auto) 0.3 % 01/06/24 18:19 Neut % (Auto) 50.7 % 01/06/24 18:19 Lymph % (Auto) 36.2 % 01/06/24 18:19 Whiteside % (Auto) 11.4 % 01/06/24 18:19 Eos % (Auto) 1.1 % 01/06/24 18:19 Baso % (Auto) 0.3 % 01/06/24 18:19 Neut # (Auto) 1.86 K/uL (1.40-6.50) 01/06/24 18:19 Lymph # (Auto) 1.33 K/uL (1.20-3.40) 01/06/24 18:19 Whiteside # (Auto) 0.42 K/uL (0.11-0.59) 01/06/24 18:19 Eos # (Auto) 0.04 K/uL (0.00-0.50) 01/06/24 18:19 Baso # (Auto) 0.01 K/uL (0.00-0.20) 01/06/24 18:19 Immature Gran # (Auto) 0.01 K/uL (0.01-0.20) 01/06/24 18:19 Sodium 139 mmol/L (136-145) 01/06/24 18:19 Potassium 3.5 mmol/L (3.5-5.1) 01/06/24 18:19 Chloride 102 mmol/L (98-107) 01/06/24 18:19 Carbon Dioxide 31 mmol/L (21-32) 01/06/24 18:19 Anion Gap 6 (3-11) 01/06/24 18:19 BUN 7 mg/dl (6-23) 01/06/24 18:19 Creatinine 0.68 mg/dl (0.6-1.2) 01/06/24 18:19 Est Cr Clr Drug Dosing 103.0 ml/min 01/06/24 18:19 eGFR 104.07 01/06/24 18:19 BUN/Creatinine Ratio 10.3 (10-20) 01/06/24 18:19 Glucose 72 mg/dl (70-99(Fasting)) 01/06/24 18:19 Calcium 8.7 mg/dl (8.6-10.3) 01/06/24 18:19 Total Bilirubin 6.0 mg/dl (0.2-1.0) H 01/06/24 18:19 Direct Bilirubin 3.6 mg/dl (0-0.2) H 01/06/24 18:19 AST 1479 U/L (13-39) H 01/06/24 18:19 ALT 1353 U/L (7-52) H 01/06/24 18:19 Alkaline Phosphatase 336 U/L (34-104) H 01/06/24 18:19 Troponin I High Sens 6.0 pg/ml (0-14) 01/06/24 18:19 Total Protein 6.3 gm/dl (6.0-8.3) 01/06/24 18:19 Albumin 3.3 gm/dl (3.4-5.0) L 01/06/24 18:19 Globulin 3.0 gm/dl (2.5-4.0) 01/06/24 18:19 Albumin/Globulin Ratio 1.1 (0.9-2) 01/06/24 18:19 Lipase 50 U/L (11-82) 01/06/24 18:19 Urine Color Dark Yellow 01/06/24 19:53 Urine Appearance Clear (Clear) 01/06/24 19:53 Urine pH 8.0 (4.5-7.5) H 01/06/24 19:53 Ur Specific [place] > 1.045 (1.000-1.030) H 01/06/24 19:53 Urine Protein Trace (Negative) H 01/06/24 19:53 Urine Glucose (UA) Negative (Negative) 01/06/24 19:53 Urine Ketones 1+ (Negative) H 01/06/24 19:53 Urine Blood Negative (Negative) 01/06/24 19:53 Urine Nitrite Negative (Negative) 01/06/24 19:53 Urine Bilirubin 1+ (Negative) H 01/06/24 19:53 Urine Urobilinogen Positive (Negative) H 01/06/24 19:53 Ur Leukocyte Esterase Trace (Negative) H 01/06/24 19:53 Urine WBC (Auto) 11-20 /hpf (0-5) H 01/06/24 19:53 Urine RBC (Auto) 0-2 /hpf (0-2) 01/06/24 19:53 U Hyaline Cast (Auto) 0-2 /lpf (0-2) 01/06/24 19:53 U Epithel Cells (Auto) 3-5 /hpf (0-2) H 01/06/24 19:53 Urine Bacteria (Auto) 1+ (None Seen) H 01/06/24 19:53 Monoscreen Negative (Negative) 01/06/24 18:19 Impressions Chest X-Ray 01/06/24 18:07 EXAM: Radiograph of the Chest 1 View INDICATION: Pain and nausea. TECHNIQUE: Frontal view of the chest. COMPARISON: No relevant prior studies available. FINDINGS: Lungs and pleural spaces: No consolidation or pulmonary edema. No pleural effusion or pneumothorax. Heart: Shape and configuration within normal limits allowing for technique. Mediastinum: Normal contour. Bones/joints: Partially imaged lower anterior cervical fusion hardware grossly intact. No osseous abnormality identified. Soft tissues: No abnormality noted. No radiopaque foreign body noted. Upper abdomen: No free air noted subjacent to the diaphragm. IMPRESSION: No acute cardiopulmonary disease. ACT 112: Negative or not required by law. Electronically signed by Kay Mandujano 01-06-2024 6:48 PM Abdomen/Pelvis CT 01/06/24 18:13 Exam(s): CT ABDOMEN + PELVIS With Contrast IV Amt: optiray 320 94ml EXAM: CT Abdomen and Pelvis With Intravenous Contrast CLINICAL HISTORY: pain, nausea. TECHNIQUE: Axial computed tomography images of the abdomen and pelvis with intravenous contrast. CTDI is 9.32 mGy and DLP is 450.83 mGy-cm. Automated exposure control was utilized for the study. A dose lowering technique was utilized adhering to the principles of ALARA. CONTRAST: Patient received optiray 320 94ml of IV contrast COMPARISON: No relevant prior studies available. FINDINGS: Lung bases: Unremarkable. No mass. No consolidation. ABDOMEN: Liver: Unremarkable. No mass. Gallbladder and bile ducts: Unremarkable. No calcified stones. No ductal dilation. Pancreas: Unremarkable. No mass. No ductal dilation. Spleen: Unremarkable. No splenomegaly. Adrenals: Unremarkable. No mass. Kidneys and ureters: No obstructive uropathy. No obstructing renal or ureteral calculi. No hydronephrosis or hydroureter. Stomach and bowel: No obstruction or ileus. No evidence for diverticulitis. PELVIS: Appendix: Appendix not identified. No secondary evidence for appendicitis. Bladder: Unremarkable. No mass. Reproductive: Uterus and ovaries are grossly unremarkable. ABDOMEN and PELVIS: Intraperitoneal space: No free air. Small amount of lower pelvic free fluid. Bones/joints: No acute fracture. Degenerative changes of the lower lumbar spine. Soft tissues: Unremarkable. Vasculature: Unremarkable. No abdominal aortic aneurysm. Lymph nodes: Unremarkable. No enlarged lymph nodes. IMPRESSION: No bowel obstruction or ileus. Nonspecific trace lower pelvic free fluid. Otherwise negative. Electronically signed by: Jean-Paul Spencer M.D. 01/06/24 21:15 PM Diagnostic Findings EKG as per my interpretation : Rate 70, NSR, normal axis, no ischemia
[2024-01-06] MEDS ORDERED: traMADol HCL 50 MG TABLET PO PRN (22:16)
[2024-01-06] MEDS ORDERED: ACETAMINOPHEN 500 MG TAB PO PRN (22:16)
[2024-01-06] MEDS ORDERED: LORazepam 0.5 MG TAB PO PRN (22:18)
[2024-01-06 22:50] LABS: INR 1.2 (0.9-1.1); Partial Thromboplastin Ratio 1.1; Partial Thromboplastin Time 29 Seconds (21-31); Prothrombin Time 13.3 Seconds (9.0-12.0)
[2024-01-06 22:59] LABS: Thyroid Stimulating Hormone 1.358 uIu/ml (0.300-4.500)
[2024-01-06] MEDS: PROMETHAZINE 6.25 MG/50.25 ML BAG IV PRN (23:44)
[2024-01-06] MEDS: traZODone HCL 100 MG TAB PO SCH (23:50)
[2024-01-07] MEDS ORDERED: POLYETHYLENE (MIRALAX) 17 GM PACK PO PRN (02:23)
[2024-01-07] MEDS: PANTOprazole 40 MG TAB PO SCH (05:47)
[2024-01-07 06:35] LABS: Basophils # (auto) 0.01 K/uL (0.00-0.20); Basophils % (auto) 0.3 %; Eosinophils # (auto) 0.07 K/uL (0.00-0.50); Eosinophils % (auto) 1.9 %; Hematocrit (blood only) 33.9 % (37.0-47.0); Hemoglobin 11.9 g/dl (12.0-16.0); Immature Granulocytes # (auto) 0.02 K/uL (0.01-0.20); Immature Granulocytes % (auto) 0.5 %; Lymphocytes # (auto) 1.48 K/uL (1.20-3.40); Lymphocytes % (auto) 39.3 %; Mean Corpuscular Hemoglobin 30.1 pg (25.0-34.0); Mean Corpuscular Hgb Conc 35.1 g/dL (32.0-36.0); Mean Corpuscular Volume 85.8 fL (80.0-100.0); Mean Platelet Volume 9.6 fL (9.4-12.4); Monocytes # (auto) 0.47 K/uL (0.11-0.59); Monocytes % (auto) 12.5 %; Neutrophils # (auto) 1.72 K/uL (1.40-6.50); Neutrophils % (auto) 45.5 %; Platelet Count 270 K/uL (130-400); RDW Coefficient of Variation 17.3 % (11.5-14.5); RDW Standard Deviation 54.4 fL (36.4-46.3); Red Blood Count 3.95 M/uL (4.20-5.40); White Blood Count 3.77 K/ul (4.8-10.8)
[2024-01-07 06:59] LABS: BUN Creatinine Ratio 11.9 (10-20); Calcium 8.3 mg/dl (8.6-10.3); Creatinine Clr Calc Pharmacy 87.2 ml/min
[2024-01-07 07:21] LABS: Albumin Level 2.8 gm/dl (3.4-5.0); Bilirubin,Total 5.6 mg/dl (0.2-1.0); Globulin 2.9 gm/dl (2.5-4.0); Total Protein 5.7 gm/dl (6.0-8.3)
--- NOTE | 2024-01-07 07:40 | Hospitalist Progress Note ---
Date of Service January 07, 2024 Assessment & Plan (1) Hepatitis: Plan: Ms. Madden is a 53 year old woman with hpast history of ADHD, GERD who presented to ED with 10-14 days of nausea and vomiting and admitted for hepatitis. Patient denies alcohol intake, tylenol/asa use/new supplements, or any other sick contacts/recent travel. Presumed to possibly be viral, acute hepatitis panel pending at this time. No signs of fulminant liver failure, will continue symptomatic measures. #Acute hepatitis, unknown etiology AST> ALT,2:1, elevated bili CT abd/p unrevealing mono neg, lyme neg middle aged woman, no hx of autoimmunity however possible, CORY/antismooth muscle ab ordered for am possibly viral hepatitis, acute hepatitis panel pending and CMV/herpes/EBV ordered CK ordered this am, low at 22 Iron level 228, Ferritin 293.6 Trend CMP #abnormal ua No reports of urinae symptoms, asymptomatic bacteruria CTM #Anemia Hgb at 11.9 from 13, possibly dilutional anemia labs unrevealing Repeat CBC in am, no signs of bleeding #HLD on statin, held #GERD, on PPI #ADHD, on Adderall DVT lovenox Dispo contingent on symptom control likely 1-2 days Admission and Anticipated Discharge Date Admission Date: January 06, 2024 Subjective Reports some improvement, more nausea overall Discussed any possible exposure to any new supplements/sick contacts etc--patient declines Patient denies any new food adventures as well, no seafood or any thing exotic outside of her usual diet reports weightloss over last year intentional Physical Exam Constitutional: fatigued appearing woman Eyes: ozzy discoloration, slight jaundice Respiratory: normal respiratory effort, lungs clear to auscultation Cardiovascular: RRR, no murmur, no edema Gastrointestinal (Abdomen): normal bowel sounds, soft, nontender, no hepatosplenomegaly Results & Data Results & Data Vital Signs (Past 12 Hours) Vital Signs Temp Pulse Pulse Resp BP Pulse Ox O2 Del Method 01/07/24 07:06 36.6 C 79 18 98/60 L 98 Room Air 01/06/24 23:31 Room Air 01/06/24 23:12 36.8 C 83 16 102/67 100 Room Air 01/06/24 22:59 77 18 96/56 L 97 Room Air 01/06/24 22:08 78 01/06/24 22:00 81 18 101/59 L 99 Room Air 01/06/24 21:00 78 18 100/61 98 Room Air Laboratory Results Short CBC 01/06/24 01/07/24 Range/Units 18:19 05:33 WBC 3.67 L 3.77 L (4.8-10.8) K/ul Hgb 13.7 11.9 L (12.0-16.0) g/dl Hct 39.8 33.9 L (37.0-47.0) % Plt Count 294 270 (130-400) K/uL BMP 01/06/24 01/07/24 18:19 05:33 Sodium 139 141 Potassium 3.5 4.0 Chloride 102 105 Carbon Dioxide 31 29 BUN 7 7 Creatinine 0.68 0.59 L Glucose 72 55 L Calcium 8.7 8.3 L Cardiac Enzymes 01/07/24 Range/Units 05:33 Total Creatine Kinase 22 L (26-192) U/L Liver Function 01/06/24 01/07/24 Range/Units 18:19 05:33 Total Bilirubin 6.0 H 5.6 H (0.2-1.0) mg/dl Direct Bilirubin 3.6 H (0-0.2) mg/dl AST 1479 H 1370 H (13-39) U/L ALT 1353 H 1157 H (7-52) U/L Alkaline Phosphatase 336 H 277 H (34-104) U/L Albumin 3.3 L 2.8 L (3.4-5.0) gm/dl Urine 01/06/24 Range/Units 19:53 Urine Color Dark Yellow Urine Appearance Clear (Clear) Urine pH 8.0 H (4.5-7.5) Ur Specific [place] > 1.045 H (1.000-1.030) Urine Protein Trace H (Negative) Urine Glucose (UA) Negative (Negative) Medications Administered Home Medications Medication Instructions Recorded Confirmed Last Taken armodafinil 250 mg tablet 250 mg PO QAM 01/06/24 01/06/24 Unknown atorvastatin 80 mg tablet 80 mg PO DAILY 01/06/24 01/06/24 Unknown bisacodyl 10 mg rectal suppository 10 mg ID BID PRN Constipation 01/06/24 01/06/24 Unknown conjugated estrogens 0.625 mg/gram 0.312 mg vaginal HS 01/06/24 01/06/24 Unknown vaginal cream (Premarin) dextroamphetamine-amphetamine ER 30 mg PO QAM 01/06/24 01/06/24 Unknown 30 mg 24hr capsule,extend release ondansetron HCl 4 mg tablet 4 mg PO Q6 PRN Nausea 01/06/24 01/06/24 Unknown pantoprazole 40 mg tablet,delayed 40 mg PO DAILYBB 01/06/24 01/06/24 Unknown release polyethylene glycol 3350 17 17 g PO UD 01/06/24 01/06/24 Unknown gram/dose oral powder semaglutide 0.25 mg or 0.5 mg (2 0.5 mg subcut WK 01/06/24 01/06/24 Unknown mg/3 mL) subcutaneous pen injector (Ozempic) trazodone 100 mg tablet 100 mg PO HS 01/06/24 01/06/24 Unknown Active Medications Generic Name Dose Route Start Last Admin Trade Name Freq PRN Reason Stop Dose Admin Amphetamine/Dextroamphetamine 30 mg 01/07/24 09:00 01/07/24 10:00 Dextroamphetamine/Amphetamine Er 10 Mg Cap PO 01/21/24 08:59 Not Given DAILY SOFÍA Enoxaparin Sodium 40 mg 01/07/24 09:00 01/07/24 08:11 Enoxaparin Inj 40 Mg/0.4 Ml Syr SQ 02/06/24 08:59 Not Given QAM SOFÍA Promethazine HCl 6.25 mg in 50.25 mls @ 201 mls/hr 01/06/24 22:16 01/07/24 00:13 Phenergan IV 02/05/24 22:15 Infused Q6H PRN Infusion Nausea And Vomiting Pantoprazole Sodium 40 mg 01/07/24 06:30 01/07/24 05:47 Pantoprazole 40 Mg Tab PO 02/06/24 06:29 40 mg DAILYBB SOFÍA Administration Senna/Docusate Sodium 1 tab 01/07/24 09:00 01/07/24 09:59 Docusate Sodium/Senna 50/8.6mg Tab PO 02/06/24 08:59 1 tab QAM SOFÍA Administration Trazodone HCl 100 mg 01/06/24 22:20 01/06/24 23:50 Trazodone Hcl 100 Mg Tab PO 02/05/24 22:19 Not Given HS SOFÍA
[2024-01-07] MEDS: ENOXAPARIN INJ 40 MG/0.4 ML SYR SQ SCH (08:11)
[2024-01-07 08:54] LABS: Ferritin 293.6 ng/ml (8-388)
[2024-01-07 08:58] LABS: Folate (Folic Acid),Ser orPlas > 22.30 ng/ml (>5.38); Vitamin B12 > 1500 pg/ml (180-914)
[2024-01-07] MEDS ORDERED: DEXTROAMPHETAMINE/AMPHETAMINE ER 10 MG CAP PO SCH (09:00)
[2024-01-07] MEDS ORDERED: ARMODAFINIL 250 MG PO SCH (09:00)
[2024-01-07] MEDS: DOCUSATE SODIUM/SENNA 50/8.6MG TAB PO SCH (09:59)
[2024-01-07] MEDS: DEXTROAMPHETAMINE/AMPHETAMINE ER 10 MG CAP PO SCH (10:00)
--- NOTE | 2024-01-07 10:12 | Gastrointestinal Consultation ---
Date of Consultation January 07, 2024 Assessment & Plan (1) Abnormal LFTs: She has evidence of acute hepatitis. She does not have risk factors for viral hepatitis but often people get Hep A without knowledge of exposure. I would also consider EBV, CMV and herpes as well for viral illnesses. Otherwise workup should be done as an outpatient when this is a chronic process. As long as she shows no signs of acute fulminant hepatic failure she can go home when she shows symptomatic improvement. Labs will be a while before they return and there is very little intervention that we do acutely. Might also want to check CORY or antismooth muscle antibody as well. History of Present Illness Reason for Consultation: hepatitis Attending Physician: Marianne Rodas MD History of Present Illness 53 year old female who has been having two weeks of nausea and vomiting progressing to the point of needing to go to ED. She tells me she noticed her urine turning dark during this time. She did not have fever or chills. In the ER she was found to have evidence of acute hepatitis with transaminases around 1500, bilirubin of 6. She does not eat raw seafood at all. She has not been around anyone that has been sick. She has no tatttoos and no history of blood transfusion. She has never done IV drugs. She is not aware of having had a tick bite. There is no family history of liver disease. 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 She has not been around anyone with mono that she is aware of. Allergies Allergy/AdvReac Type Severity Reaction Status Date / Time topiramate [From Topamax] AdvReac Cough Verified 01/06/24 21:52 Home Medications Medication Instructions Recorded Confirmed Type armodafinil 250 mg tablet 250 mg PO QAM 01/06/24 01/06/24 History atorvastatin 80 mg tablet 80 mg PO DAILY 01/06/24 01/06/24 History bisacodyl 10 mg rectal suppository 10 mg [place] BID PRN Constipation 01/06/24 01/06/24 History conjugated estrogens 0.625 mg/gram 0.312 mg vaginal HS 01/06/24 01/06/24 History vaginal cream (Premarin) dextroamphetamine-amphetamine ER 30 mg PO QAM 01/06/24 01/06/24 History 30 mg 24hr capsule,extend release ondansetron HCl 4 mg tablet 4 mg PO Q6 PRN Nausea 01/06/24 01/06/24 History pantoprazole 40 mg tablet,delayed 40 mg PO DAILYBB 01/06/24 01/06/24 History release polyethylene glycol 3350 17 17 g PO UD 01/06/24 01/06/24 History gram/dose oral powder semaglutide 0.25 mg or 0.5 mg (2 0.5 mg subcut WK 01/06/24 01/06/24 History mg/3 mL) subcutaneous pen injector (Ozempic) trazodone 100 mg tablet 100 mg PO HS 01/06/24 01/06/24 History Patient History Medical History Acid reflux High cholesterol Social History Smoking Status: Never smoker Second Hand Exposure: No; Do You Dip or Chew Tobacco: No; Hx Alcohol Use: Yes Alcohol type: wine Hx Substance Use: No Preferred Language: Faroese Communication Ability: Effective Customer Sales Representative Required: No Beliefs That Will Affect Care: None Current Living Situation: Spouse Other Information That Helps Us Care for You: No Feels Safe at Home: Yes Safety Concerns: Feels Safe At This Time Assistive Devices: None Review of Systems Review of Systems: All systems reviewed & are unremarkable except as noted in HPI & below Physical Exam Constitutional: WD/WN, vitals as above Eyes: sclerae not anicteric Neck: trachea midline, no thyromegaly Respiratory: normal respiratory effort, lungs clear to auscultation Cardiovascular: RRR, no murmur, no edema Gastrointestinal (Abdomen): Inspection/Auscultation: abdomen normal to inspection Percussion/Palpation: + abdomen tender and abdomen soft; no hepatosplenomegaly Results & Data Vital Signs (Past 12 Hours) Vital Signs Temp Pulse Pulse Resp BP Pulse Ox O2 Del Method 01/07/24 07:06 36.6 C 79 18 98/60 L 98 Room Air 01/06/24 23:31 Room Air 01/06/24 23:12 36.8 C 83 16 102/67 100 Room Air 01/06/24 22:59 77 18 96/56 L 97 Room Air 01/06/24 22:08 78 Laboratory Results 01/07/24 01/06/24 01/06/24 Range/Units 05:33 23:16 21:35 WBC 3.77 L (4.8-10.8) K/ul RBC 3.95 L (4.20-5.40) M/uL Hgb 11.9 L (12.0-16.0) g/dl Hct 33.9 L (37.0-47.0) % MCV 85.8 (80.0-100.0) fL MCH 30.1 (25.0-34.0) pg MCHC 35.1 (32.0-36.0) g/dL RDW Std Deviation 54.4 H (36.4-46.3) fL RDW Coeff of Olivia 17.3 H (11.5-14.5) % Plt Count 270 (130-400) K/uL MPV 9.6 (9.4-12.4) fL Immature Gran % (Auto) 0.5 % Neut % (Auto) 45.5 % Lymph % (Auto) 39.3 % [place] % (Auto) 12.5 % Eos % (Auto) 1.9 % Baso % (Auto) 0.3 % Neut # (Auto) 1.72 (1.40-6.50) K/uL Lymph # (Auto) 1.48 (1.20-3.40) K/uL [place] # (Auto) 0.47 (0.11-0.59) K/uL Eos # (Auto) 0.07 (0.00-0.50) K/uL Baso # (Auto) 0.01 (0.00-0.20) K/uL Immature Gran # (Auto) 0.02 (0.01-0.20) K/uL PT (9.0-12.0) Seconds INR (0.9-1.1) APTT (21-31) Seconds PTT Ratio Sodium 141 (136-145) mmol/L Potassium 4.0 (3.5-5.1) mmol/L Chloride 105 (98-107) mmol/L Carbon Dioxide 29 (21-32) mmol/L Anion Gap 7 (3-11) BUN 7 (6-23) mg/dl Creatinine 0.59 L (0.6-1.2) mg/dl Est Cr Clr Drug Dosing 87.2 ml/min eGFR 107.70 BUN/Creatinine Ratio 11.9 (10-20) Glucose 55 L (70-99(Fasting)) mg/dl Lactate 1.0 (0.4-2.0) mmol/L Calcium 8.3 L (8.6-10.3) mg/dl Iron 228 H (35-150) mcg/dl TIBC 370 (250-450) mcg/dl Unsaturated IBC 142 L (155-355) mcg/dl Transferrin % Sat 62 H (15-50) % Ferritin 293.6 (8-388) ng/ml Total Bilirubin 5.6 H (0.2-1.0) mg/dl Direct Bilirubin (0-0.2) mg/dl AST 1370 H (13-39) U/L ALT 1157 H (7-52) U/L Alkaline Phosphatase 277 H (34-104) U/L Total Creatine Kinase 22 L (26-192) U/L Troponin I High Sens (0-14) pg/ml Total Protein 5.7 L (6.0-8.3) gm/dl Albumin 2.8 L (3.4-5.0) gm/dl Globulin 2.9 (2.5-4.0) gm/dl Albumin/Globulin Ratio 1.0 (0.9-2) Lipase (11-82) U/L Vitamin B12 > 1500 H (180-914) pg/ml Folate > 22.30 (>5.38) ng/ml TSH (0.300-4.500) uIu/ml Urine Color Urine Appearance (Clear) Urine pH (4.5-7.5) Ur Specific [place] (1.000-1.030) Urine Protein (Negative) Urine Glucose (UA) (Negative) Urine Ketones (Negative) Urine Blood (Negative) Urine Nitrite (Negative) Urine Bilirubin (Negative) Urine Urobilinogen (Negative) Ur Leukocyte Esterase (Negative) Urine WBC (Auto) (0-5) /hpf Urine RBC (Auto) (0-2) /hpf U Hyaline Cast (Auto) (0-2) /lpf U Epithel Cells (Auto) (0-2) /hpf Urine Bacteria (Auto) (None Seen) Lyme Disease Screen (Negative) Hepatitis A IgM Ab Pending Hep Bs Antigen Pending Hep B Core IgM Ab Pending Hepatitis C Antibody Pending Monoscreen (Negative) 11/09/24 11/09/24 Range/Units 19:53 18:19 WBC 3.67 L (4.8-10.8) K/ul RBC 4.52 (4.20-5.40) M/uL Hgb 13.7 (12.0-16.0) g/dl Hct 39.8 (37.0-47.0) % MCV 88.1 (80.0-100.0) fL MCH 30.3 (25.0-34.0) pg MCHC 34.4 (32.0-36.0) g/dL RDW Std Deviation 53.5 H (36.4-46.3) fL RDW Coeff of Olivia 16.7 H (11.5-14.5) % Plt Count 294 (130-400) K/uL MPV 9.2 L (9.4-12.4) fL Immature Gran % (Auto) 0.3 % Neut % (Auto) 50.7 % Lymph % (Auto) 36.2 % [place] % (Auto) 11.4 % Eos % (Auto) 1.1 % Baso % (Auto) 0.3 % Neut # (Auto) 1.86 (1.40-6.50) K/uL Lymph # (Auto) 1.33 (1.20-3.40) K/uL [place] # (Auto) 0.42 (0.11-0.59) K/uL Eos # (Auto) 0.04 (0.00-0.50) K/uL Baso # (Auto) 0.01 (0.00-0.20) K/uL Immature Gran # (Auto) 0.01 (0.01-0.20) K/uL PT 13.3 H (9.0-12.0) Seconds INR 1.2 H (0.9-1.1) APTT 29 (21-31) Seconds PTT Ratio 1.1 Sodium 139 (136-145) mmol/L Potassium 3.5 (3.5-5.1) mmol/L Chloride 102 (98-107) mmol/L Carbon Dioxide 31 (21-32) mmol/L Anion Gap 6 (3-11) BUN 7 (6-23) mg/dl Creatinine 0.68 (0.6-1.2) mg/dl Est Cr Clr Drug Dosing 103.0 ml/min eGFR 104.07 BUN/Creatinine Ratio 10.3 (10-20) Glucose 72 (70-99(Fasting)) mg/dl Lactate (0.4-2.0) mmol/L Calcium 8.7 (8.6-10.3) mg/dl Iron (35-150) mcg/dl TIBC (250-450) mcg/dl Unsaturated IBC (155-355) mcg/dl Transferrin % Sat (15-50) % Ferritin (8-388) ng/ml Total Bilirubin 6.0 H (0.2-1.0) mg/dl Direct Bilirubin 3.6 H (0-0.2) mg/dl AST 1479 H (13-39) U/L ALT 1353 H (7-52) U/L Alkaline Phosphatase 336 H (34-104) U/L Total Creatine Kinase (26-192) U/L Troponin I High Sens 6.0 (0-14) pg/ml Total Protein 6.3 (6.0-8.3) gm/dl Albumin 3.3 L (3.4-5.0) gm/dl Globulin 3.0 (2.5-4.0) gm/dl Albumin/Globulin Ratio 1.1 (0.9-2) Lipase 50 (11-82) U/L Vitamin B12 (180-914) pg/ml Folate (>5.38) ng/ml TSH 1.358 (0.300-4.500) uIu/ml Urine Color Dark Yellow Urine Appearance Clear (Clear) Urine pH 8.0 H (4.5-7.5) Ur Specific [place] > 1.045 H (1.000-1.030) Urine Protein Trace H (Negative) Urine Glucose (UA) Negative (Negative) Urine Ketones 1+ H (Negative) Urine Blood Negative (Negative) Urine Nitrite Negative (Negative) Urine Bilirubin 1+ H (Negative) Urine Urobilinogen Positive H (Negative) Ur Leukocyte Esterase Trace H (Negative) Urine WBC (Auto) 11-20 H (0-5) /hpf Urine RBC (Auto) 0-2 (0-2) /hpf U Hyaline Cast (Auto) 0-2 (0-2) /lpf U Epithel Cells (Auto) 3-5 H (0-2) /hpf Urine Bacteria (Auto) 1+ H (None Seen) Lyme Disease Screen Negative (Negative) Hepatitis A IgM Ab Hep Bs Antigen Hep B Core IgM Ab Hepatitis C Antibody Monoscreen Negative (Negative) Diagnostic Findings Chest X-Ray 01/06/24 18:07 EXAM: Radiograph of the Chest 1 View INDICATION: Pain and nausea. TECHNIQUE: Frontal view of the chest. COMPARISON: No relevant prior studies available. FINDINGS: Lungs and pleural spaces: No consolidation or pulmonary edema. No pleural effusion or pneumothorax. Heart: Shape and configuration within normal limits allowing for technique. Mediastinum: Normal contour. Bones/joints: Partially imaged lower anterior cervical fusion hardware grossly intact. No osseous abnormality identified. Soft tissues: No abnormality noted. No radiopaque foreign body noted. Upper abdomen: No free air noted subjacent to the diaphragm. IMPRESSION: No acute cardiopulmonary disease. ACT 112: Negative or not required by law. Electronically signed by Kay Mandujano 01-06-2024 6:48 PM Abdomen/Pelvis CT 01/06/24 18:13 Exam(s): CT ABDOMEN + PELVIS With Contrast IV Amt: optiray 320 94ml EXAM: CT Abdomen and Pelvis With Intravenous Contrast CLINICAL HISTORY: pain, nausea. TECHNIQUE: Axial computed tomography images of the abdomen and pelvis with intravenous contrast. CTDI is 9.32 mGy and DLP is 450.83 mGy-cm. Automated exposure control was utilized for the study. A dose lowering technique was utilized adhering to the principles of ALARA. CONTRAST: Patient received optiray 320 94ml of IV contrast COMPARISON: No relevant prior studies available. FINDINGS: Lung bases: Unremarkable. No mass. No consolidation. ABDOMEN: Liver: Unremarkable. No mass. Gallbladder and bile ducts: Unremarkable. No calcified stones. No ductal dilation. Pancreas: Unremarkable. No mass. No ductal dilation. Spleen: Unremarkable. No splenomegaly. Adrenals: Unremarkable. No mass. Kidneys and ureters: No obstructive uropathy. No obstructing renal or ureteral calculi. No hydronephrosis or hydroureter. Stomach and bowel: No obstruction or ileus. No evidence for diverticulitis. PELVIS: Appendix: Appendix not identified. No secondary evidence for appendicitis. Bladder: Unremarkable. No mass. Reproductive: Uterus and ovaries are grossly unremarkable. ABDOMEN and PELVIS: Intraperitoneal space: No free air. Small amount of lower pelvic free fluid. Bones/joints: No acute fracture. Degenerative changes of the lower lumbar spine. Soft tissues: Unremarkable. Vasculature: Unremarkable. No abdominal aortic aneurysm. Lymph nodes: Unremarkable. No enlarged lymph nodes. IMPRESSION: No bowel obstruction or ileus. Nonspecific trace lower pelvic free fluid. Otherwise negative. Electronically signed by: Jean-Paul Spencer M.D. 01/06/24 21:15 PM
[2024-01-08 07:09] VITALS: BP 94/58; PULSE 67; RESP 18; TEMP 98.4; O2SAT 98
[2024-01-08 07:17] LABS: Hematocrit (blood only) 34.5 % (37.0-47.0); Hemoglobin 12.2 g/dl (12.0-16.0); Mean Corpuscular Hemoglobin 30.3 pg (25.0-34.0); Mean Corpuscular Hgb Conc 35.4 g/dL (32.0-36.0); Mean Corpuscular Volume 85.6 fL (80.0-100.0); Mean Platelet Volume 9.4 fL (9.4-12.4); Platelet Count 256 K/uL (130-400); RDW Coefficient of Variation 17.2 % (11.5-14.5); RDW Standard Deviation 54.1 fL (36.4-46.3); Red Blood Count 4.03 M/uL (4.20-5.40); White Blood Count 3.47 K/ul (4.8-10.8)
[2024-01-08 07:39] LABS: BUN Creatinine Ratio 11.9 (10-20); Calcium 8.3 mg/dl (8.6-10.3); Creatinine Clr Calc Pharmacy 87.2 ml/min; Potassium 3.7 mmol/L (3.5-5.1)
[2024-01-08 08:13] LABS: Albumin Level 2.7 gm/dl (3.4-5.0); Bilirubin,Total 5.2 mg/dl (0.2-1.0); Globulin 2.8 gm/dl (2.5-4.0); Total Protein 5.5 gm/dl (6.0-8.3)
[2024-01-08 09:46] LABS: Hep B Surface Ag with confirm Negative (Negative)
--- NOTE | 2024-01-08 09:49 | Hospitalist Progress Note ---
Date of Service January 08, 2024 Assessment & Plan (1) Hepatitis: Plan: Ms. Madden is a 53 year old woman with hpast history of ADHD, GERD who presented to ED with 10-14 days of nausea and vomiting and admitted for hepatitis. Patient denies alcohol intake, tylenol/asa use/new supplements, or any other sick contacts/recent travel. Presumed to possibly be viral, acute hepatitis panel pending at this time. No signs of fulminant liver failure, will continue symptomatic measures. LFTS with slow downtrend, patient endorsing marginal improvement. GI recommends symptomatic control at this time. Will monitor and see how patient's intake is improving to ensure adequate intake prior to dispo. #Acute hepatitis, unknown etiology AST> ALT,2:1, elevated bili CT abd/p unrevealing mono neg, lyme neg middle aged woman, no hx of autoimmunity however possible, CORY/antismooth muscle ab pending possibly viral hepatitis, acute hepatitis panel pending and CMV/herpes/EBV pending CK low at 22 Iron level 228, Ferritin 293.6 Trend CMP avoid hepatotoxic agents #abnormal ua No reports of urinae symptoms, asymptomatic bacteruria CTM #Anemia Hgb at 11.9 from 13, possibly dilutional anemia labs unrevealing Repeat CBC in am, no signs of bleeding #HLD on statin, held #GERD, on PPI #ADHD, on Adderall DVT lovenox Dispo contingent on symptom control likely 1-2 days Admission and Anticipated Discharge Date Admission Date: January 06, 2024 Subjective Reports marginal improvement in symptoms denies emesis, just unsettled sensation however, some improvement in appetite LFTS downtrending slowly Physical Exam Constitutional: WD/WN, vitals as above Respiratory: normal respiratory effort, lungs clear to auscultation Cardiovascular: RRR, no murmur, no edema Gastrointestinal (Abdomen): normal bowel sounds, soft, nontender, no hepatosplenomegaly Results & Data Results & Data Vital Signs (Past 12 Hours) Vital Signs Temp Pulse Resp BP Pulse Ox O2 Del Method 01/08/24 07:08 36.9 C 67 18 94/58 L 98 Room Air Laboratory Results Short CBC 01/08/24 Range/Units 06:27 WBC 3.47 L (4.8-10.8) K/ul Hgb 12.2 (12.0-16.0) g/dl Hct 34.5 L (37.0-47.0) % Plt Count 256 (130-400) K/uL BMP 01/08/24 06:27 Sodium 142 Potassium 3.7 Chloride 105 Carbon Dioxide 32 BUN 7 Creatinine 0.59 L Glucose 68 L Calcium 8.3 L Liver Function 01/08/24 Range/Units 06:27 Total Bilirubin 5.2 H (0.2-1.0) mg/dl AST 1237 H (13-39) U/L ALT 1121 H (7-52) U/L Alkaline Phosphatase 267 H (34-104) U/L Albumin 2.7 L (3.4-5.0) gm/dl Medications Administered Home Medications Medication Instructions Recorded Confirmed Last Taken armodafinil 250 mg tablet 250 mg PO QAM 01/06/24 01/06/24 Unknown atorvastatin 80 mg tablet 80 mg PO DAILY 01/06/24 01/06/24 Unknown bisacodyl 10 mg rectal suppository 10 mg [place] BID PRN Constipation 01/06/24 01/06/24 Unknown conjugated estrogens 0.625 mg/gram 0.312 mg vaginal HS 01/06/24 01/06/24 Unknown vaginal cream (Premarin) dextroamphetamine-amphetamine ER 30 mg PO QAM 01/06/24 01/06/24 Unknown 30 mg 24hr capsule,extend release ondansetron HCl 4 mg tablet 4 mg PO Q6 PRN Nausea 01/06/24 01/06/24 Unknown pantoprazole 40 mg tablet,delayed 40 mg PO DAILYBB 01/06/24 01/06/24 Unknown release polyethylene glycol 3350 17 17 g PO UD 01/06/24 01/06/24 Unknown gram/dose oral powder semaglutide 0.25 mg or 0.5 mg (2 0.5 mg subcut WK 01/06/24 01/06/24 Unknown mg/3 mL) subcutaneous pen injector (Ozempic) trazodone 100 mg tablet 100 mg PO HS 01/06/24 01/06/24 Unknown Active Medications Generic Name Dose Route Start Last Admin Trade Name Freq PRN Reason Stop Dose Admin Amphetamine/Dextroamphetamine 30 mg 01/07/24 09:00 01/08/24 09:31 Dextroamphetamine/Amphetamine Er 10 Mg Cap PO 01/21/24 08:59 30 mg DAILY SOFÍA Administration Enoxaparin Sodium 40 mg 01/07/24 09:00 01/08/24 09:01 Enoxaparin Inj 40 Mg/0.4 Ml Syr SQ 02/06/24 08:59 40 mg QAM SOFÍA Administration Promethazine HCl 6.25 mg in 50.25 mls @ 201 mls/hr 01/06/24 22:16 01/07/24 00:13 Phenergan IV 02/05/24 22:15 Infused Q6H PRN Infusion Nausea And Vomiting Pantoprazole Sodium 40 mg 01/07/24 06:30 01/08/24 05:33 Pantoprazole 40 Mg Tab PO 02/06/24 06:29 40 mg DAILYBB SOFÍA Administration Senna/Docusate Sodium 1 tab 01/07/24 09:00 01/08/24 09:31 Docusate Sodium/Senna 50/8.6mg Tab PO 02/06/24 08:59 1 tab QAM SOFÍA Administration Trazodone HCl 100 mg 01/06/24 22:20 01/07/24 22:05 Trazodone Hcl 100 Mg Tab PO 02/05/24 22:19 100 mg HS SOFÍA Administration
[2024-01-08 09:51] LABS: Hep C Ab Rflx HepCQuant RNA Negative (Negative)
--- NOTE | 2024-01-08 13:21 | Discharge Summary ---
Discharge Summary Date of Service January 08, 2024 Principal Dx & Hospital Course #1 = Principal Diagnosis (1) Hepatitis: Ms. Madden is a 53 year old woman with hpast history of ADHD, GERD who presented to ED with 10-14 days of nausea and vomiting and admitted for hepatitis. Patient denies alcohol intake, tylenol/asa use/new supplements, or any other sick contacts/recent travel. Presumed to possibly be viral, acute hepatitis panel pending at this time. No signs of fulminant liver failure, will continue symptomatic measures. LFTS with slow downtrend, patient endorsing marginal improvement. GI recommends symptomatic control at this time. Will monitor and see how patient's intake is improving to ensure adequate intake prior to dispo. On day of discharge patient drinking and tolerating solid foods. She was ambulating and voiding without diff iculty. #Acute hepatitis, unknown etiology #Transaminitis, downtrending AST> ALT,2:1, elevated bili CT abd/p unrevealing mono neg, lyme neg middle aged woman, no hx of autoimmunity however possible, CORY/antismooth muscle ab pending possibly viral hepatitis, acute hepatitis panel pending and CMV/herpes/EBV pending CK low at 22 Iron level 228, Ferritin 293.6 Follow up GI with in 1-2 weeks #abnormal ua No reports of urinae symptoms, asymptomatic bacteruria CTM #Anemia Hgb at 11.9 from 13, possibly dilutional anemia labs unrevealing Repeat CBC in am, no signs of bleeding #HLD on statin, held #GERD, on PPI #ADHD, on Adderall Notes For Next Care Provider Acute hepatitis panel pending Alpha 1 antitrypsin pending ceruloplasmin pending anti mitochrondrial and antismooth muscle ab pending CORY pending Recommend CMP in 1 week s/p d/c Medication Changes From Visit Hold armodafinil Hold atorvastatin Admission HPI Per Admitting Provider History obtained from patient, family, and records. Medical history significant for hyperlipidemia, GERD, ADHD, daytime sleepiness on armodafinil. 2 weeks history of nausea, vomiting symptoms. Achy abdominal pain with constipation symptoms. Denies recent EtOH abuse or inordinate Tylenol Rx intake. Transient headache symptoms without chest pain. SOB from weakness. Not sure about sick contacts. No recent out-of-town travel or consumption of unusual food. Patient seen at PCPs office 2 days ago. Symptoms attributed to GERD and constipation. GI symptoms attributed by PCP to Ozempic use although Ozempic stopped by patient even before symptoms started due to some nausea symptoms from medication as per patient account. Patient brought by to ER for evaluation. 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 Admission Exam Per Admitting Provider GENERAL: Comfortable, pleasant, no respiratory distress SKIN: Normal color, warm HEENT: [place] palpebral conjunctivae, no ptosis, dry buccal mucosa NECK : Supple, no tenderness CHEST : CTA, no tenderness HEART : RRR, no obvious murmurs ABDOMEN: Minimal distention, epigastric tenderness EXTREMITIES : No LE swelling/tenderness, no other conspicuous deformities noted NEUROLOGIC : Coherent, no facial asymmetry, no other gross focality Discharge Exam Constitutional WD/WN, vitals as above Respiratory normal respiratory effort, lungs clear to auscultation Cardiovascular RRR, no murmur, no edema Gastrointestinal (Abdomen) normal bowel sounds, soft, nontender, no hepatosplenomegaly Updated Medication List Medication Instructions Recorded Confirmed Type armodafinil 250 mg tablet 250 mg PO QAM 01/06/24 01/06/24 History atorvastatin 80 mg tablet 80 mg PO DAILY 01/06/24 01/06/24 History bisacodyl 10 mg rectal suppository 10 mg [place] BID PRN Constipation 01/06/24 01/06/24 History conjugated estrogens 0.625 mg/gram 0.312 mg vaginal HS 01/06/24 01/06/24 History vaginal cream (Premarin) dextroamphetamine-amphetamine ER 30 mg PO QAM 01/06/24 01/06/24 History 30 mg 24hr capsule,extend release ondansetron HCl 4 mg tablet 4 mg PO Q6 PRN Nausea 01/06/24 01/06/24 History pantoprazole 40 mg tablet,delayed 40 mg PO DAILYBB 01/06/24 01/06/24 History release polyethylene glycol 3350 17 17 g PO UD 01/06/24 01/06/24 History gram/dose oral powder trazodone 100 mg tablet 100 mg PO HS 01/06/24 01/06/24 History Hospital Stay Data Consultations 01/06/24 21:31 ED Decision to Admit Stat 01/06/24 23:08 Consult Gastroenterology Routine Diagnostic Imagining Performed 01/06/24 18:13 CT abd pelvis IV con only Stat Pending Results Patient Have Any Pending Studies at Discharge: Yes (Hepatitis panel, Autoimmune panel,) Discharge Instructions Given to Patient (Per Discharging Provider) You were admitted for acute hepatitis You were given IV fluids and liquid diet with symptom improvement. Multiple labs were ordered to evaluate the cause of the hepatitis, these will take time to result. In the interim, your liver enzymes are slowly downtrending. Please hold your atorvastatin and armodafinil until told to otherwise resume by PCP as these can irritate the liver. Follow up with GI is coordinated. Please follow up with PCP in 1 week for labs to assess your liver function Total Time Total Time Spent Total Time Spent (In Minutes): 45
--- NOTE | 2024-01-09 11:54 | Electrocardiogram Report ---
Test Reason : Blood Pressure : */* mmHG Vent. Rate : 72 BPM Atrial Rate : 72 BPM P-R Int : 144 ms QRS Dur : 92 ms QT Int : 380 ms P-R-T Axes : 77 34 68 degrees QTcB Int : 416 ms Normal sinus rhythm Normal ECG When compared with ECG of 18-Oct-2001 22:37, No significant change was found Confirmed by Jameson Troy ([id number]) on 01/09/2024 11:54:32 AM Referred By: REFERRED SELF Confirmed By: Jameson Troy
[2024-01-09 14:00] LABS: EBV Nuclear Ag Antibody >600.00 U/mL
[2024-01-09 17:08] LABS: Alpha 1 Antitrypsin 153 mg/dL (83-199); Anti Mitochondrial Antibody NEGATIVE (NEGATIVE); Anti Nuclear Antibody Screen NEGATIVE (NEGATIVE); CMV IgM Antibody <30.00 AU/mL; Ceruloplasmin 24 mg/dL (14-48); Smooth Muscle Antibody POSITIVE (NEGATIVE)
[2024-01-10 10:21] LABS: Smooth Muscle Ab Titer 1:40 titer (<1:20)
[2024-01-10 12:28] LABS: Hepatitis A Antibody IgM NON-REACTIVE (NON-REACTIVE); Hepatitis B Core Antibody IgM NON-REACTIVE (NON-REACTIVE)
== END 2024-01-08 16:20 | disposition home or self-care (01) | DRG 443 ==
LOC: ED 17:38 → 3W 22:16